=== PATIENT | female | born 1970 | race Caucasian/White ===

== ENCOUNTER 2022-02-10 18:07 | Emergency (ER) | payer OTHER, SELFPAY ==
--- NOTE | ~2022-02-10 | XR_ITS ---
EXAMINATION: XR FOOT, LEFT CLINICAL INFORMATION: Pain COMPARISON: None TECHNIQUE: AP, lateral, and oblique views of the left foot. FINDINGS: There is evidence of early degeneration first MTP joint. Possible early bunion formation. There is a sliver-like bony density emanating off the proximal phalanx of the first digit lateral aspect level of the MCP joint. This may be degenerative. Avulsion injury could not be excluded. There is significant spurring at the insertion of plantar aponeuroses and [id number] spurring at the insertion of the Achilles on the calcaneus. There is no acute bony erosion. No soft tissue air is seen. Probable dystrophic soft tissue calcification posterior lower leg XR/XR foot LT min 3V IMPRESSION: Areas of degenerative change. As described sliver-like bony density in the region of the first MTP joint could be degenerative. Small avulsion injury cannot be excluded in the appropriate clinical setting. Spurring in the posterior calcaneus
[2022-02-10 18:27] VITALS: BP 161/89; PULSE 97; RESP 20; TEMP 36.7; O2SAT 98; BMI 30.5
--- NOTE | 2022-02-10 20:38 | ED_ITS ---
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 Denies trauma/injury, fall or twisting. Denies numbness, tingling, weakness, fever MD complaint: foot injury Onset (ago): hour(s) Related Data Previous Rx's Medication Instructions Recorded cephalexin 500 mg capsule 500 mg PO QID 7 Days #28 cap 02/10/22 ketorolac 10 mg tablet 10 mg PO TID PRN 5 Days #15 tab 02/10/22 Allergies Allergy/AdvReac Type Severity Reaction Status Date / Time acetaminophen [From VICODIN] Allergy Unknown ITCHING Unverified 06/19/20 14:48 hydrocodone [From VICODIN] Allergy Unknown ITCHING Unverified 06/19/20 14:48 oxycodone [From PERCOCET] Allergy Unknown ITCHING Unverified 06/19/20 14:48 ibuprofen AdvReac Vomiting Verified 02/10/22 18:30 Review of Systems Review of Systems: Constitutional: No Fever, No Chills ENT/Mouth: No Ear Pain, No Nasal Congestion, No Sinus Pain, No sore throat, No Rhinorrhea, No Swallowing Difficulty Cardiovascular: No Chest Pain, No SOB Respiratory: No Cough, No Sputum Gastrointestinal: No Nausea, No Vomiting, No Diarrhea, No Constipation, No Abdominal pain Genitourinary: No Dysuria, No Urinary Frequency, No Flank Pain Musculoskeletal: + joint pain, No Myalgias, + foot Swelling Skin: No Skin Lesions, No rash Neuro: No Weakness, No Numbness, No Paresthesias Yes all other systems are reviewed and are negative [facility] Past Medical History Attestation statement: The following information was validated with the patient. Social History Social History Advance Directives: No Advance Directives Information Provided: No Physical Exam Vital Signs: Vital Signs: Last Vital Signs Temp 98.0 F 02/10/22 18:27 Pulse 97 02/10/22 18:27 Resp 20 02/10/22 18:27 BP 161/89 H 02/10/22 18:27 Pulse Ox 98 02/10/22 18:27 BMI result Body Mass Index 30.5 Const: General: cooperative, healthy appearing and no acute distress Orientation/consciousness: patient oriented x3 Limitations: no limitations HEENT: Head: Yes normal to inspection and Yes atraumatic Ears: hearing grossly normal bilaterally General nose exam: Normal external nose present Face and sinus: Yes normal facial exam Eyes: General: appearance normal, both eyes and all related structures EOM: EOMs intact bilaterally Neck: Neck: Yes normal visual inspection and Yes no meningeal signs Resp: Effort & Inspection: normal respiratory effort and no respiratory distress Cardio: Rate: regular rate Peripheral pulses: dorsalis pedis present Skin: Rashes: no rashes Wounds: no wounds Neuro: General: patient oriented x3, tone normal and no meningeal signs Extrem: Other: Left foot volar aspect with mild swelling and erythema. Tender to palpation. Ankle nontender without noted deformity. ankle ROM intact. Toe ROM intact. Sensation intact to light touch. Knee nontender Course Course Course Narrative: XR foot LT min 3V IMPRESSION: Areas of degenerative change. As described sliver-like bony density in the region of the first MTP joint could be degenerative. Small avulsion injury cannot be excluded in the appropriate clinical setting. Spurring in the posterior calcaneus? >> patient placed in hard-soled shoe and also prescribed Keflex for potential infection is to follow-up with orthopedics. Discussed worrisome signs and symptoms and strict return precautions. 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 On exam vital signs stable, in ED/nontoxic-appearing, physical exam as above. Concern for sprain vs ?Fracture vs early cellulitis vs gout Plan: X-rays Medical Records Attestation: I reviewed the patient's medical records. Lab Data Attestation: I reviewed the patient's lab results. Discharge Plan Discharge Clinical Impression: Acute foot pain, Cellulitis Patient Disposition: Home, Self-Care Instructions: Cellulitis (DC), Arthralgia (ED) Additional Instructions: You have a possible avulsion fracture of your foot. Please wear hard-soled shoe into you see the immigration law specialist. In addition Keflex as an antibiotic please take as prescribed for possible infection. Ice and elevate. Toradol as an anti-inflammatory/pain medication, take with food. In addition take Tylenol. If symptoms persist or worsen return to the emergency department Prescriptions: New ketorolac 10 mg tablet 10 mg PO TID PRN (Reason: pain) 5 Days Qty: 15 0RF cephalexin 500 mg capsule 500 mg PO QID 7 Days Qty: 28 0RF Referrals: Maggie Sarmiento PA-C [Physician Senior Sourcing Manager] - 1 week
[2022-02-10] MEDS: Ketorolac Tromethamine 30 MG/ML VIAL IM (20:45)
== END 2022-02-10 21:16 | disposition home or self-care (01) ==
PROVIDERS: Emergency Provider Internal Medicine; PCP Internal Medicine
DX: L03.116 Cellulitis of left lower limb (principal); R60.0 Localized edema; M79.672 Pain in left foot; Z79.899 Other long term (current) drug therapy
CPT/HCPCS: 73630; 96372; 99282; 99284; J1885

== ENCOUNTER → 2022-02-22 14:18 | Outpatient (BNVA) | payer OTHER, SELFPAY | PROVIDERS: PCP Internal Medicine; Visit Provider Physician Assistant | DX: M79.672 Pain in left foot (principal) | CPT/HCPCS: 99202 ==

== ENCOUNTER 2022-07-10 09:48 | Outpatient (REF) | payer OTHER, SELFPAY ==
[2022-07-10 11:15] LABS: Hematocrit 46.9 % (37.0-47.0); Hemoglobin 15.5 g/dl (12.0-16.0); Mean Corpuscular Hemoglobin 30.2 pg (27.0-33.0); Mean Corpuscular Volume 91.2 fL (80.0-98.0); Mean Platelet Volume 10.3 fL (9.4-12.3); Platelet Count 224 X10*3/uL (160-400); Red Blood Count 5.14 X10*6/uL (4.20-5.50); Red Cell Distribution Width 12.8 % (11.0-16.0); White Blood Count 8.7 X10*3/uL (4.8-10.8)
[2022-07-10 14:03] LABS: Alanine Aminotransferase 16 U/L (0-31); Albumin Level 4.5 g/dL (3.5-5.0); Alkaline Phosphatase 69 U/L (39-117); Anion Gap 16 (12-20); Aspartate Amino Transferase 14 U/L (5-31); Bilirubin Direct < 0.2 mg/dL (0.0-0.5); Bilirubin Total 0.3 mg/dL (0.0-1.0); Blood Urea Nitrogen 12 mg/dL (9-16); Calcium 9.3 mg/dL (8.4-10.2); Carbon Dioxide 22 mmol/L (22-29); Chloride 108 mmol/L (96-108); Cholesterol 232 mg/dL; Estimated Glomerular Filt Rate > 60; Glucose Random 101 mg/dL (60-115); HDL Cholesterol 50 mg/dL; LDL Cholesterol Calculated 156 mg/dl; Potassium 4.9 mmol/L (3.3-5.1); Sodium 141 mmol/L (135-145); Total Protein 6.9 g/dL (6.5-8.0); Triglycerides 133 mg/dL
[2022-07-10 14:23] LABS: Thyroid Stimulating Hormone 0.75 uIU/mL (0.32-4.0)
== END 2022-07-10 09:49 | disposition home or self-care (01) ==
LOC: HO.HMGCLDS 09:48
PROVIDERS: PCP Internal Medicine; Visit Provider Internal Medicine
DX: I10 Essential (primary) hypertension (principal)
CPT/HCPCS: 36415; 80048; 80061; 80076; 84443; 85027

== ENCOUNTER 2023-04-26 08:07 | Outpatient (REF) | payer OTHER, SELFPAY ==
--- NOTE | ~2023-04-26 | MM_ITS ---
EXAMINATION: MM SCREENING DIGITAL BREAST TOMOSYNTHESIS, BILATERAL CLINICAL INFORMATION: Screening. Asymptomatic. Patient has a history of previous bilateral breast reduction. The lifetime risk of breast cancer based on the Tyrer-Cuzick Model is 7%. COMPARISON: Mammography: This study is compared with prior exams dating back to 2016. TECHNIQUE: Digital breast tomosynthesis is performed in both the craniocaudal and mediolateral oblique views along with computer-aided detection (CAD). Synthesized 2D images are generated from the tomosynthesis. FINDINGS: The breasts are almost entirely fatty (ACR BI-RADS breast composition Category a). There are no significant masses, abnormal calcifications, or other abnormalities. There are post reduction changes in each breast with areas of fat necrosis manifested as macrocalcification more pronounced in the left breast. These are benign findings. MM/MM tomosynthesis screening BI IMPRESSION: No mammographic evidence of malignancy. ASSESSMENT: BI-RADS BI-RADS 2 - Benign Findings RECOMMENDATION: Routine annual mammography screening. 1 year F/U This examination should not preclude the clinical evaluation of a suspicious palpable abnormality. This patient's information was entered into a reminder system with a target due date for their next mammogram.
== END 2023-04-26 08:08 | disposition home or self-care (01) ==
LOC: HO.MAMMO 08:07
PROVIDERS: PCP Internal Medicine; Visit Provider Internal Medicine
DX: Z12.31 Encounter for screening mammogram for malignant neoplasm of breast (principal)
CPT/HCPCS: 77063; 77067

== ENCOUNTER → 2023-04-26 08:15 | Outpatient (BNV) | payer OTHER, SELFPAY | PROVIDERS: PCP Internal Medicine; Visit Provider Radiology Diagnostic Radiology | DX: Z12.31 Encounter for screening mammogram for malignant neoplasm of breast (principal) | CPT/HCPCS: 77063; 77067 ==

== ENCOUNTER 2023-04-27 08:04 | Outpatient (AMB) | payer OTHER, MEDICAID, SELFPAY ==
[2023-04-27 08:13] VITALS: BMI 30.7
--- NOTE | 2023-04-27 08:13 | MHC.OFFVIS ---
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 States she noticed a small lump about 2-3 months ago. States at times its really red and tender and pain increases if she hits it on a surface. States she has intermittent numbness and tingling, increases at night time. She wears a brace as needed to sleep. Hx of O.A. and lyme disease. 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 She complains of a mass on the dorsal aspect of her index finger D IP joint. She says this has been present for ~2-3 months and is often red, swollen, and painful if bumped against an object. She has a Hx of hand OA an Lyme disease, as well as Bipolar disorder. 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 Review of Systems Const All systems reviewed & are unremarkable except as noted in HPI and below Physical Exam Vital Signs: BMI result Body Mass Index 30.7 Const General: cooperative, healthy appearing and no acute distress Orientation/consciousness: patient oriented x3 HEENT Head: Yes normocephalic and Yes atraumatic Eyes EOM: EOMs intact bilaterally Resp Effort & Inspection: normal respiratory effort and able to speak in complete sentences Cardio Jugular venous distension: no JVD Skin General skin exam: turgor normal Rashes: no rashes Neuro General: patient oriented x3 Extrem Other: Evaluation of Right Upper Extremity: The patient is alert, oriented, and in no acute distress Neuro: Median, Ulnar, Radial nerves motor and sensory intact and sensation grossly intact Vascular: Cap refill brisk ROM: She can make a fist and extend all her digits. Skin: No lacerations or abrasions. General: No Ecchymosis. No Erythema or evidence of infection. She has a mass that is approximately 4 mm in diameter over the dorsal aspect of her left index finger D IP joint. This is most consistent with a mucous cyst. She also has some early generalized arthritic changes in her PIP and D IP joints. Psych Appearance: grossly normal Affect: normal affect Attitude: cooperative Assessment & Plan Assessment & Plan (1) Digital mucous cyst of finger of left hand: Code(s): M67.442 - Ganglion, left hand (2) Bilateral hand numbness: Code(s): R20.0 - Anesthesia of skin Plan Assessment & Plan: 1. Left index finger mucous cyst Measuring ~ 4 mm in diameter, on the dorsal aspect of the DIP joint I educated her about this condition I discussed operative and non-operative treatment options The patient would like to proceed with surgery The risks and benefits of operative treatment were discussed with the patient and the patient wishes to proceed with surgery. These risks include, but are not limited to risk of damage to blood vessels, nerves, tendons, infection, recurrence, incomplete relief of preoperative symptoms, persistent pain, possible need for further surgery and the risks associated with regional blocks and anesthesia. The plan is to take the patient to the operating room sometime in the next few weeks for the following procedures: 1. Left index finger mucous cyst excision, under local All of the preoperative paperwork including the consent was filled out today. All the patient's questions were answered. The patient understands that they will be contacted by our team leader surgery soon to schedule this procedure She denies Diabetes, blood thinners, asthma, heart, lung, kidney issues 2. Occasional numbness in her hands She thinks this is occurring a couple times a week I educated her about carpal and cubital tunnel syndrome She is going to be mindful about the frequency of her numbness, and knows to contact us if her symptoms increase Scribed for Maliha Bella MD by Tevin Otoole, medical service technician, on 04/27/23 at 8:30 AM, EST. Coding Level of Care Code New Pt Level 4 (28033) Diagnoses Digital mucous cyst of finger of left hand M67.442 Bilateral hand numbness R20.0
== END 2023-04-27 08:37 | disposition home or self-care (01) ==
PROVIDERS: PCP Nurse Practitioner Family; Visit Provider Orthopaedic Surgery
DX: M67.442 Ganglion, left hand (principal); R22.32 Localized swelling, mass and lump, left upper limb; R20.0 Anesthesia of skin
CPT/HCPCS: 99214

== ENCOUNTER → 2023-04-27 08:04 | Outpatient (BNVA) | payer OTHER, SELFPAY | PROVIDERS: PCP Nurse Practitioner Family; Visit Provider Orthopaedic Surgery ==

== ENCOUNTER 2023-05-09 09:42 | Day surgery (SDC) | payer OTHER, SELFPAY ==
[2023-05-09 10:20] VITALS: BMI 30.3
--- NOTE | 2023-05-09 10:31 | MHC.SHP ---
Pre-Procedural Eval Section A Date of Service: 05/09/23 The patient is an INPATIENT: No Changes since office visit: No Cold of Flu in the past 2 weeks, No New Medical Problems, No Changes in Medication and No Patient answered all questions The History & Physical has been completed within 30 days and I have reviewed it.: Yes Section B Chief Complaint: Ganglion, left hand Allergies: Allergies Allergy/AdvReac Type Severity Reaction Status Date / Time acetaminophen [From VICODIN] Allergy Unknown ITCHING Verified 05/09/23 10:20 hydrocodone [From VICODIN] Allergy Unknown ITCHING Verified 05/09/23 10:20 oxycodone [From PERCOCET] Allergy Unknown ITCHING Verified 05/09/23 10:20 ibuprofen AdvReac Vomiting Verified 05/09/23 10:20 Plan I have reviewed the history and physical and performed a pertinent physical examination on my patient. No changes have occurred unless specified. Time Spent With Patient Time: Total time managing care of this patient today ____ minutes.
--- NOTE | 2023-05-09 10:32 | W.PM.OPN ---
Operative Note Operative Note Date of Service: 05/09/23 Narrative: Operative Note Preop diagnosis: 1. Left index finger DIP joint osteoarthritis and mucous cyst Postop diagnosis: 1. same Procedure: 1. left index finger mucous cyst excision 2. left index finger DIP joint arthrotomy and excision of osteophyte. Surgeon: Maliha Bella MD Anesthesia: Digital block using 1% lidocaine with epinephrine Findings: mucous cyst EBL: Less than 5 mL Tourniquet time: None Specimens: None Complications: None Disposition: Brought to recovery room in stable condition Plan: Follow-up for 7-10 days for wound check and suture removal Indications: The patient is 53 years old, with left index finger D IP joint osteoarthritis and a mucous cyst that has been unresponsive to nonoperative management. The risks and benefits of operative treatment including but not limited to risk of damage to blood vessels, nerves, tendons, infection, persistent pain, persistent symptoms, recurrence or possible need for additional surgery were discussed with the patient and the patient wishes to proceed with surgery. Procedure: Once consent was obtained a digital block was performed in the preop area using a combination of 1% lidocaine with epinephrine. The patient was then brought back to the operating suite and placed on the operative table in supine position. A tourniquet was applied to the proximal aspect of the left upper extremity and the limb was prepped and draped in a standard surgical fashion. Once assured that we had a good block, an L-shaped incision was made over the dorsal aspect of the left index finger distal phalanx. The incision was made through the skin to the subcutaneous tissues using a #15 blade. Careful dissection was made down to the level of the mucous cyst and extensor mechanism using iris scissors. The mucous cyst measured approximately 4 mm in diameter and was filled with clear viscous fluid consistent with a ganglion. The stalk track down directly to the radial aspect of the D IP joint. It was dissected free from the surrounding tissues and removed from the finger. An arthrotomy was performed on the radial side of the extensor mechanism at the D IP joint. The periarticular osteophytes were excised using a rongeur. Once satisfied, the wound was copiously irrigated with normal saline and hemostasis was obtained with a brief period of local pressure. The skin edges were reapproximated with some 5.0 Prolene suture material and a sterile dressing was applied. The patient appears to have tolerated the procedure well and with no complications. All digits were well vascularized at the conclusion of the case.
[2023-05-09 12:29] VITALS: BP 128/71; PULSE 78; RESP 16; O2SAT 96
== END 2023-05-09 12:10 | disposition home or self-care (01) ==
PROVIDERS: PCP Internal Medicine; Visit Provider Orthopaedic Surgery
PROC: (CPT 26160; principal; 2023-05-09 11:30)
DX: M67.442 Ganglion, left hand (principal); M19.042 Primary osteoarthritis, left hand; R20.0 Anesthesia of skin; I10 Essential (primary) hypertension; F32.A Depression, unspecified; F41.1 Generalized anxiety disorder; Z88.8 Allergy status to other drugs, medicaments and biological substances; Z87.891 Personal history of nicotine dependence
CPT/HCPCS: 26160; 26080; J0171

== ENCOUNTER → 2023-05-09 09:42 | Outpatient (BNV) | payer OTHER, SELFPAY | PROVIDERS: PCP Internal Medicine; Visit Provider Orthopaedic Surgery | DX: M71.342 Other bursal cyst, left hand (principal); M25.742 Osteophyte, left hand | CPT/HCPCS: 26160; 26210 ==

== ENCOUNTER 2023-05-24 11:47 | Outpatient (AMB) | payer OTHER, SELFPAY ==
--- NOTE | 2023-05-24 11:52 | A.OFFPC_ITS ---
Vital Signs 05/24/23 11:58 Height 5 ft 7.5 in Weight 197 lb 4 oz BMI 30.4 BP 146/90 H Blood Pressure Location Lt brachial Position Sitting Pulse 94 Pulse Source Pulse Oximeter Pulse Oximetry (%) 95 Oxygen Delivery Method Room Air Intake Visit Reasons: EST care trans from [place] Allergies acetaminophen [From VICODIN] Allergy (Unknown, Verified 05/24/23 11:58) ITCHING hydrocodone [From VICODIN] Allergy (Unknown, Verified 05/24/23 11:58) ITCHING oxycodone [From PERCOCET] Allergy (Unknown, Verified 05/24/23 11:58) ITCHING ibuprofen Adverse Reaction (Verified 05/24/23 11:58) Vomiting Medication List - Last Reconciled 05/24/23 by Fernanda Huerta MD fluoxetine 20 mg PO BID 90 days oxycodone-acetaminophen 5-325 mg 1 tab PO Q6H PRN trazodone 50 mg PO BEDTIME 90 days Tobacco use date assessed: 05/24/23 Dental Screening Dental Screen Date: 05/24/23 Did you have a dental visit in the last 12 months?: No Did you have a dental problem in the last 6 months where you did not have access to dental care?: No Was dental information given to patient?: No HPI EST care trans from [place] HPI Details Patient is 53-year-old female came in today for establish care visit Patient says that years ago she was diagnosed with Lyme disease through neurology So when she is nervous she start having tremor of her head. She was treated for that. Patient have a history of bipolar disorder currently seeing no psychiatrist but she is in need of psychiatrist as well as therapist I have sent a message to our behavior health coordinator for that. She is currently taking fluoxetine 20 mg b.i.d. and trazodone 50 mg at night. Patient is having hallucinations she tells me that she sees things which are not there and noises cause severe panic like state. She also says that trazodone does not help she is not able to sleep at night. I am switching her to Seroquel 25 mg patient may take 1 or 2 at night. She will be having labs fasting and will return in 3 weeks for follow-up. Mammogram was April of this year Patient have a history of hysterectomy secondary to heavy bleeding in 2012 She does not want to have colonoscopy. BMI is elevated at 30.4 patient is obese we will talk about it further in her upcoming appointments. 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 1. Little interest or pleasure in doing things: nearly every day 2. Feeling down, depressed, or hopeless: nearly every day 3. Trouble falling or staying asleep, or sleeping too much: nearly every day 4. Feeling tired or having little energy: nearly every day 5. Poor appetite or overeating: more than half the days 6. Feeling bad about yourself - or that you are a failure or have let yourself or your family down: more than half the days 7. Trouble concentrating on things, such as reading the newspaper or watching television: nearly every day 8. Moving or speaking so slowly that other people could have noticed. Or the opposite - being so fidgety or restless that you have been moving around a lot more than usual: nearly every day 9. Thoughts that you would be better off or of hurting yourself in some way: more than half the days Total score: 24 Depression Screening Interpretation: Positive 30756 - PHQ-9 Billing: Yes Source: Developed by Drs. Peter Alvarado, Dilma Victoria, Jerrell Padilla and colleagues, with an educational stephanie from [employer]. Thrive Questionnaire Date Thrive assessed: 05/24/23 I am a: Patient What is your living situation today?: I have a steady place to live Within the past 12 months, did the food you bought not last and you didn't have the money to get more?: Sometimes True Within the past 12 months, did you worry whether your food would run out before you got money to buy more?: Sometimes True Do you have trouble paying for medicines?: No Do you have trouble getting transportation to medical appointments?: No Do you have trouble paying your heating and electricity bill?: No Do you have trouble taking care of your child, family member or friend?: No Do you have trouble with day-to-day activities such as bathing, preparing meals, shopping, managing finances, etc.?: No Are you currently unemployed and looking for a job?: No Are you interested in more education?: No AUDIT C Alcohol Use Questionnaire (AUDIT-C) 1. How often do you have a drink containing alcohol?: Never 3. How often do you have six or more drinks on one occasion?: Never Total Score: 0 Score Reviewed/Action Taken: Yes JAVY-7 AMB Questionnaire JAVY-7 Date JAVY - 7 assessed: 05/24/23 Feeling nervous, anxious, or on edge: 3 = Nearly every day Not being able to stop or control worryin = Nearly every day Worrying too much about different things: 3 = Nearly every day Trouble relaxin = Nearly every day Being so restless that it is hard to sit still: 3 = Nearly every day Becoming easily annoyed or irritable: 3 = Nearly every day Feeling afraid as if something awful might happen: 3 = Nearly every day Total JAVY-7 score (0-4 normal; 5-9 mild; 10-14 moderate; 15-21 severe): 21 Source: Developed by Drs. Peter Alvarado, Dilma Victoria, Jerrell Padilla and colleagues, with an educational stephanie from [employer]. Review of Systems Const Denies chills, Denies fever(s) and Denies headache(s) Eyes Denies blurry vision ENT Denies headache(s), Denies nasal discharge, Denies nasal obstruction, Denies odynophagia and Denies sinus pain Card Denies chest pain at rest and Denies chest pain with activity Resp Denies cough and Denies hemoptysis GI Denies diarrhea, Denies odynophagia, Denies vomiting and Denies hematemesis Reports as per HPI Musc Denies abnormal gait Skin/Breast Reports as per HPI Neuro Denies Abnormal speech present, Denies abnormal gait, Denies headache(s) and Denies Sensory deficit (Neuro) Endo Reports as per HPI Jose David/Lymph Reports as per HPI Aller/Immun Reports as per HPI Physical exam (Primary Care) Vital Signs: Last Vital Signs Pulse 94 08/22/23 11:58 BP 146/90 H 05/24/23 11:58 Pulse Ox 95 05/24/23 11:58 Oxygen Delivery Method Room Air 05/24/23 11:58 BMI result Body Mass Index 30.4 Tobacco/Smoking Status: Tobacco use Status Tobacco use date assessed 05/24/23 05/24/23 11:59 Patient Tobacco Use Status Current someday Tobacco 05/24/23 11:59 e-Cigarette/Vaping Use Never Used 05/24/23 11:53 Depression Screening Interpretation: Positive Thrive Assessment: Date of Thrive Assessment Date Thrive assessed 05/24/23 05/24/23 12:35 Const General: cooperative, comfortable and no acute distress Orientation/consciousness: patient oriented x3 HENMT Head: Yes normocephalic and Yes atraumatic Eyes General: appearance normal, both eyes and all related structures Pupils: Equal, round and reactive pupils present EOM: EOMs intact bilaterally Neck Neck: Yes supple and No lymphadenopathy Thyroid: Thyroid normal Lymphatic: no lymphadenopathy noted Chest Breast/axilla palpation: normal palpation of the breasts Resp Effort & Inspection: normal respiratory effort and able to speak in complete sentences Auscultation: clear to auscultation bilaterally Cardio Heart sounds: S1 normal heart sound present and S2 normal heart sound present GI Palpation (GI): Soft to palpation and nontender Auscultation: normal bowel sounds General: Yes no CVA tenderness Back/Spine/Pelvis Back: no CVA tenderness Skin General skin exam: elasticity normal and turgor normal Neuro General: patient oriented x3 and gait normal Cranial nerves: Yes Equal, round and reactive pupils present Speech: No Abnormal speech present Sensory Exam: No Sensory deficit (Neuro) Coordination: tandem gait normal and Romberg test negative Extrem General: Yes normal exam except as noted and No edema Assessment and Plan Assessment & Plan (1) Establishing care with new doctor, encounter for: Code(s): Z76.89 - Persons encountering health services in other specified circumstances (2) Paranoia: Code(s): F22 - Delusional disorders (3) Visual hallucinations: Code(s): R44.1 - Visual hallucinations (4) Panic anxiety syndrome: Code(s): F41.0 - Panic disorder [episodic paroxysmal anxiety] (5) Severe major depression: Code(s): F32.2 - Major depressive disorder, single episode, severe without psychotic features (6) History of Lyme disease: Code(s): Z86.19 - Personal history of other infectious and parasitic diseases (7) Colonoscopy refused: Code(s): Z53.20 - Procedure and treatment not carried out because of patient's decision for unspecified reasons (8) Obesity due to excess calories: Code(s): E66.09 - Other obesity due to excess calories (9) Elevated blood pressure reading: Code(s): R03.0 - Elevated blood-pressure reading, without diagnosis of hypertension (10) History of bilateral breast reduction surgery: Code(s): Z98.890 - Other specified postprocedural states Plan Patient is 53-year-old female came in today for establish care visit Patient says that years ago she was diagnosed with Lyme disease through neurology So when she is nervous she start having tremor of her head. She was treated for that. Patient have a history of bipolar disorder currently seeing no psychiatrist but she is in need of psychiatrist as well as therapist I have sent a message to our behavior health coordinator for that. She is currently taking fluoxetine 20 mg b.i.d. and trazodone 50 mg at night. Patient is having hallucinations she tells me that she sees things which are not there and noises cause severe panic like state. She also says that trazodone does not help she is not able to sleep at night. I am switching her to Seroquel 25 mg patient may take 1 or 2 at night. She will be having labs fasting and will return in 3 weeks for follow-up. Mammogram was April of this year Patient have a history of hysterectomy secondary to heavy bleeding in 2012 She does not want to have colonoscopy. BMI is elevated at 30.4 patient is obese we will talk about it further in her upcoming appointments. Orders: Orders Complete Blood Count Auto Diff Today E66.09 - Other obesity due to excess calories, F22 - Delusional disorders, F32.2 - Major depressive disorder, single episode, severe without psychotic features, F41.0 - Panic disorder [episodic paroxysmal anxiety], R03.0 - Elevated blood-pressure reading, without diagnosis of hypertension, R44.1 - Visual hallucinations, Z76.89 - Persons encountering health services in other specified circumstances, Z86.19 - Personal history of other infectious and parasitic diseases Comprehensive Riddle. Panel Fast Today E66.09 - Other obesity due to excess calories, F22 - Delusional disorders, F32.2 - Major depressive disorder, single episode, severe without psychotic features, F41.0 - Panic disorder [episodic paroxysmal anxiety], R03.0 - Elevated blood-pressure reading, without diagnosis of hypertension, R44.1 - Visual hallucinations, Z76.89 - Persons encountering health services in other specified circumstances, Z86.19 - Personal history of other infectious and parasitic diseases Lipid Panel Today E66.09 - Other obesity due to excess calories, F22 - Delusional disorders, F32.2 - Major depressive disorder, single episode, severe without psychotic features, F41.0 - Panic disorder [episodic paroxysmal anxiety], R03.0 - Elevated blood-pressure reading, without diagnosis of hypertension, R44.1 - Visual hallucinations, Z76.89 - Persons encountering health services in other specified circumstances, Z86.19 - Personal history of o ther infectious and parasitic diseases TSH reflex Free T4 Today E66.09 - Other obesity due to excess calories, F22 - Delusional disorders, F32.2 - Major depressive disorder, single episode, severe without psychotic features, F41.0 - Panic disorder [episodic paroxysmal anxiety], R03.0 - Elevated blood-pressure reading, without diagnosis of hypertension, R44.1 - Visual hallucinations, Z76.89 - Persons encountering health services in other specified circumstances, Z86.19 - Personal history of other infectious and parasitic diseases Vitamin B12 Today E66.09 - Other obesity due to excess calories, F22 - Delusional disorders, F32.2 - Major depressive disorder, single episode, severe without psychotic features, F41.0 - Panic disorder [episodic paroxysmal anxiety], R03.0 - Elevated blood-pressure reading, without diagnosis of hypertension, R44.1 - Visual hallucinations, Z76.89 - Persons encountering health services in other specified circumstances, Z86.19 - Personal history of other infectious and parasitic diseases Vitamin D 25-OH (D2 and D3) Today E66.09 - Other obesity due to excess calories, F22 - Delusional disorders, F32.2 - Major depressive disorder, single episode, severe without psychotic features, F41.0 - Panic disorder [episodic paroxysmal anxiety], R03.0 - Elevated blood-pressure reading, without diagnosis of hypertension, R44.1 - Visual hallucinations, Z76.89 - Persons encountering health services in other specified circumstances, Z86.19 - Personal history of other infectious and parasitic diseases Medications: New quetiapine (Seroquel) 25 mg PO BEDTIME 30 tabs 0RF clotrimazole-betamethasone 1-0.05 % 1 appl topical ONCE 45 grams 0RF 30 days Discontinued trazodone Discontinued Reason: Doctor's Order 50 mg PO BEDTIME 90 days 90 tabs 2RF Coding Level of Care Code New Pt Level 5 (12647) Diagnoses Establishing care with new doctor, encounter for Z76.89 Paranoia F22 Visual hallucinations R44.1 Panic anxiety syndrome F41.0 Severe major depression F32.2 History of Lyme disease Z86.19 Colonoscopy refused Z53.20 Obesity due to excess calories E66.09 Elevated blood pressure reading R03.0 History of bilateral breast reduction surgery Z98.890 Comment 60 min spent, 35 with the patient, 10 reviewing chart and charting,15 coordination of care
[2023-05-24 11:58] VITALS: BP 146/90; PULSE 94; O2SAT 95; BMI 30.4
== END 2023-05-24 12:37 | disposition home or self-care (01) ==
PROVIDERS: PCP Internal Medicine; Visit Provider Internal Medicine
DX: R03.0 Elevated blood-pressure reading, without diagnosis of hypertension (principal); F22 Delusional disorders; F32.2 Major depressive disorder, single episode, severe without psychotic features; Z86.19 Personal history of other infectious and parasitic diseases; Z98.890 Other specified postprocedural states; Z76.89 Persons encountering health services in other specified circumstances; F41.0 Panic disorder [episodic paroxysmal anxiety]; Z53.20 Procedure and treatment not carried out because of patient's decision for unspecified reasons; E66.09 Other obesity due to excess calories
CPT/HCPCS: 99205

== ENCOUNTER 2023-05-25 10:43 | Outpatient (REF) | payer OTHER, SELFPAY ==
[2023-05-25 13:31] LABS: MANUAL DIFF FLAG NO
[2023-05-25 13:38] LABS: Basophils Percent Auto 0.4 % (0-2); Eosinophils Absolute Auto 0.1 X10*3/uL (0.0-0.4); Eosinophils Percent Auto 1.5 % (0-4); Hematocrit 48.2 % (37.0-47.0); Hemoglobin 15.8 g/dl (12.0-16.0); Imm Gran Abs Auto 0.04 X10*3/uL (0.00-0.03); Imm Gran Pct Auto 0.4 % (0.0-0.4); Lymphocytes Absolute Auto 2.7 X10*3/uL (1.2-4.9); Lymphocytes Percent Auto 28.1 % (20-40); Mean Corpuscular HGB Conc 32.8 g/dl (31.0-35.0); Mean Corpuscular Hemoglobin 30.3 pg (27.0-33.0); Mean Corpuscular Volume 92.3 fL (80.0-98.0); Mean Platelet Volume 10.2 fL (9.4-12.3); Monocytes Absolute Auto 0.6 X10*3/uL (0.1-1.2); Monocytes Percent Auto 5.8 % (2-11); Neutrophils Absolute Auto 6.1 x10*3/uL (2.0-8.3); Neutrophils Percent Auto 63.8 % (45-73); Platelet Count 270 X10*3/uL (160-400); Red Blood Count 5.22 X10*6/uL (4.20-5.50); Red Cell Distribution Width 12.7 % (11.0-16.0); White Blood Count 9.6 X10*3/uL (4.8-10.8)
[2023-05-25 14:09] LABS: Alanine Aminotransferase 15 U/L (0-31); Albumin Level 4.5 g/dL (3.5-5.0); Alkaline Phosphatase 61 U/L (39-117); Anion Gap 14 (12-20); Aspartate Amino Transferase 13 U/L (5-31); Bilirubin Total 0.5 mg/dL (0.0-1.0); Blood Urea Nitrogen 12 mg/dL (9-16); Carbon Dioxide 22 mmol/L (22-29); Chloride 109 mmol/L (96-108); Cholesterol 243 mg/dL (<200); Estimated Glomerular Filt Rate > 60; Glucose Fasting 109 mg/dL (60-99); HDL Cholesterol 43 mg/dL (>40); LDL Cholesterol Calculated 158 mg/dL (<100); Potassium 4.2 mmol/L (3.3-5.1); Sodium 141 mmol/L (135-145); Total Protein 7.5 g/dL (6.5-8.0); Triglycerides 213 mg/dL (<150)
[2023-05-25 14:22] LABS: Vitamin B12 597 pg/mL (200-900)
[2023-05-25 14:25] LABS: TSH reflex Free T4 0.97 uIU/mL (0.32-4.0)
[2023-05-31 06:59] LABS: Vitamin D 25-OH, D2 <4 ng/mL; Vitamin D 25-OH, D3 24 ng/mL; Vitamin D 25-OH, Total 24 ng/mL (30-100)
== END 2023-05-25 10:44 | disposition home or self-care (01) ==
LOC: HO.HMGCLDS 10:43
PROVIDERS: PCP Internal Medicine; Visit Provider Internal Medicine
DX: R03.0 Elevated blood-pressure reading, without diagnosis of hypertension (principal); R44.1 Visual hallucinations; F41.0 Panic disorder [episodic paroxysmal anxiety]; F32.2 Major depressive disorder, single episode, severe without psychotic features; E66.09 Other obesity due to excess calories; M79.641 Pain in right hand; Z48.817 Encounter for surgical aftercare following surgery on the skin and subcutaneous tissue; Z87.2 Personal history of diseases of the skin and subcutaneous tissue; Z76.89 Persons encountering health services in other specified circumstances; Z86.19 Personal history of other infectious and parasitic diseases
CPT/HCPCS: 36415; 80053; 80061; 82306; 82607; 84443; 85025

== ENCOUNTER 2023-05-25 11:55 | Outpatient (AMB) | payer OTHER, MEDICAID, SELFPAY ==
--- NOTE | 2023-05-25 12:06 | MHC.OFFVIS ---
Intake Vital Signs 05/25/23 12:08 Height 5 ft 7 in Weight 197 lb BMI 30.9 Handedness Right Intake Visit Reasons: PO LT IF M.cyst exc 05/09/23AR Intake Note: Rosie is a 53 year old right hand dominant female who presents today for a post operative visit s/p LT IF M.cyst exc 05/09/23AR. Patient reports still having pain and it wakes her up at night. Denies numbness and tingling. Allergies acetaminophen [From VICODIN] Allergy (Unknown, Verified 05/25/23 12:08) ITCHING hydrocodone [From VICODIN] Allergy (Unknown, Verified 05/25/23 12:08) ITCHING oxycodone [From PERCOCET] Allergy (Unknown, Verified 05/25/23 12:08) ITCHING ibuprofen Adverse Reaction (Verified 05/25/23 12:08) Vomiting HPI PO LT IF M.cyst exc 05/09/23AR HPI Details 53-year-old right hand dominant female who presents in the office today 2 weeks status post left index finger mucous cyst excision and DIP joint arthrotomy and excision of osteophyte, which was performed on 05/09/[address] Bella. The patient reports having pain that wakes her up at night. She denies numbness or tingling. 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 Cognitive needs: No Hearing needs: No Vision needs: Yes Review of Systems Const All systems reviewed & are unremarkable except as noted in HPI and below Physical Exam Vital Signs: BMI result Body Mass Index 30.9 Const General: cooperative, healthy appearing and no acute distress Resp Effort & Inspection: normal respiratory effort and able to speak in complete sentences Cardio Rate: regular rate Peripheral pulses: Peripheral pulses 2+ throughout GI Palpation (GI): Soft to palpation Skin Lesions: no lesions Rashes: no rashes Extrem Other: Left index finger: Dorsal sided incision site over the DIP is clean, dry, and intact. Sutures intact. Able to flex and extend at the DIP, PIP, and CMC. Slight stiffness at the DIP. Sensation intact. Capillary refill is brisk. Assessment & Plan Assessment & Plan (1) Digital mucous cyst of finger of left hand: Comment: Left index finger mucous cyst excision and DIP joint arthrotomy and excision of osteophyte 05/09/2023 AR Code(s): M67.442 - Ganglion, left hand Plan Ms. Hoffmann is a 53-year-old right hand dominant female who presents in the office today 2 weeks status post left index finger mucous cyst excision and DIP joint arthrotomy and excision of osteophyte, which was performed on 05/09/[address] Bella. The patient reports having pain that wakes her up at night. She denies numbness or tingling. Sutures were removed while in the office today. Exercises were demonstrated while in the office today. She will continue to work on ROM exercises. She is in agreement with these exercises, therefore formal occupational therapy has been deferred at this time. Follow up will be PRN, or sooner if needed. Patient Instructions: Scribed for Maggie Sarmiento PA-C by Luana Mari medical instructor, on 05/25/2023 at 11:57 am, EST. Coding Level of Care Code Global (43970) Diagnoses Digital mucous cyst of finger of left hand M67.442
[2023-05-25 12:08] VITALS: BMI 30.9
== END 2023-05-25 12:22 | disposition home or self-care (01) ==
PROVIDERS: PCP Nurse Practitioner Family; Visit Provider Physician Assistant
DX: M67.442 Ganglion, left hand (principal)
CPT/HCPCS: 99024

== ENCOUNTER 2023-06-21 08:42 | Outpatient (AMB) | payer OTHER, SELFPAY ==
[2023-06-21 08:44] VITALS: BP 142/84; PULSE 86; O2SAT 95; BMI 31.3
--- NOTE | 2023-06-21 08:44 | A.OFFPC_ITS ---
Vital Signs 06/21/23 08:44 Height 5 ft 7 in Weight 200 lb 2 oz BMI 31.3 BP 142/84 H Blood Pressure Location Rt brachial Position Sitting Pulse 86 Pulse Source Pulse Oximeter Pulse Oximetry (%) 95 Oxygen Delivery Method Room Air Intake Visit Reasons: [address] Huerta Allergies acetaminophen [From VICODIN] Allergy (Unknown, Verified 06/21/23 08:44) ITCHING hydrocodone [From VICODIN] Allergy (Unknown, Verified 06/21/23 08:44) ITCHING oxycodone [From PERCOCET] Allergy (Unknown, Verified 06/21/23 08:44) ITCHING ibuprofen Adverse Reaction (Verified 06/21/23 08:44) Vomiting Medication List - Last Reconciled 06/21/23 by Fernanda Huerta MD clotrimazole-betamethasone 1-0.05 % 1 appl topical ONCE 30 days fluoxetine 20 mg PO BID 90 days quetiapine (Seroquel) 25 mg PO BEDTIME Tobacco use date assessed: 06/21/23 Dental Screening Dental Screen Date: 06/21/23 Did you have a dental visit in the last 12 months?: No Did you have a dental problem in the last 6 months where you did not have access to dental care?: No Was dental information given to patient?: Patient has dentist HPI [address] Huerta HPI Details Patient is a 53-year-old female came in today for a follow-up ap pointment Bipolar disorder: Patient is still waiting for psychiatric and therapy appointment, I have notified our behavior health coordinator Meanwhile I started her on Seroquel 25 mg she is taking 2 tablets at night , sleeping little bit better , but still waking up frequently and hearing voices I am increasing Seroquel to 75 mg at night and 25 mg in the morning. We will book another appointment in a week to update on how she is feeling. Labs shows impaired fasting sugar of 109, I would recommend for her to control her diet and lose weight which she is trying. LDL is 158 Vitamin-D is 24, I have sent supplement that she is to start taking every day Her blood pressure is still 142/84, it was 146/90 last visit She says that hypertension runs in her family. I am starting her on atenolol 25 mg once a day. 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 1. Little interest or pleasure in doing things: several days 2. Feeling down, depressed, or hopeless: several days 3. Trouble falling or staying asleep, or sleeping too much: several days 4. Feeling tired or having little energy: several days 5. Poor appetite or overeating: more than half the days 6. Feeling bad about yourself - or that you are a failure or have let yourself or your family down: more than half the days 7. Trouble concentrating on things, such as reading the newspaper or watching television: several days 8. Moving or speaking so slowly that other people could have noticed. Or the opposite - being so fidgety or restless that you have been moving around a lot more than usual: more than half the days 9. Thoughts that you would be better off or of hurting yourself in some way: not at all Total score: 11 Depression Screening Interpretation: Negative 35369 - PHQ-9 Billing: Yes Source: Developed by Drs. Peter Alvarado, Dilma Victoria, Jerrell Padilla and colleagues, with an educational stephanie from [employer]. Thrive Questionnaire Date Thrive assessed: 06/21/23 I am a: Patient What is your living situation today?: I have a steady place to live Within the past 12 months, did the food you bought not last and you didn't have the money to get more?: Never true Within the past 12 months, did you worry whether your food would run out before you got money to buy more?: Never true Do you have trouble paying for medicines?: No Do you have trouble getting transportation to medical appointments?: No Do you have trouble paying your heating and electricity bill?: Yes Do you have trouble taking care of your child, family member or friend?: No Do you have trouble with day-to-day activities such as bathing, preparing meals, shopping, managing finances, etc.?: No Are you currently unemployed and looking for a job?: Yes Are you interested in more education?: No AUDIT C Alcohol Use Questionnaire (AUDIT-C) 1. How often do you have a drink containing alcohol?: Never 3. How often do you have six or more drinks on one occasion?: Never Total Score: 0 Score Reviewed/Action Taken: Yes JAVY-7 AMB Questionnaire JAVY-7 Date JVAY - 7 assessed: 06/21/23 Feeling nervous, anxious, or on edge: 3 = Nearly every day Not being able to stop or control worryin = Nearly every day Worrying too much about different things: 3 = Nearly every day Trouble relaxin = More than half the days Being so restless that it is hard to sit still: 2 = More than half the days Becoming easily annoyed or irritable: 3 = Nearly every day Feeling afraid as if something awful might happen: 3 = Nearly every day Total JAVY-7 score (0-4 normal; 5-9 mild; 10-14 moderate; 15-21 severe): 19 Source: Developed by Drs. Peter Alvarado, Dilma Victoria, Jerrell Padilla and colleagues, with an educational stephanie from [employer]. JAVY-7 Assessment Billing JAVY-7 Assessment Tool: JAVY-7 Assessment 17346 Review of Systems Const Denies chills and Denies fever(s) ENT Denies epistaxis and Denies nasal discharge Card Denies chest pain Resp Denies chest congestion, Denies cough and Denies hemoptysis GI Denies diarrhea and Denies nausea Skin/Breast Denies rash Neuro Reports no additional complaints Psych Reports no additional complaints Endo Reports no additional complaints Physical exam (Primary Care) Vital Signs: Last Vital Signs Pulse 86 06/21/23 08:44 BP 142/84 H 06/21/23 08:44 Pulse Ox 95 06/21/23 08:44 Oxygen Delivery Method Room Air 06/21/23 08:44 BMI result Body Mass Index 31.3 Tobacco/Smoking Status: Tobacco use Status Tobacco use date assessed 06/21/23 06/21/23 08:50 Patient Tobacco Use Status Current someday Tobacco 06/21/23 08:50 e-Cigarette/Vaping Use Never Used 06/21/23 08:50 PHQ-9: PHQ-9 Score PHQ-9: Total score 11 06/21/23 09:40 Depression Screening Interpretation: Negative Thrive Assessment: Date of Thrive Assessment Date Thrive assessed 06/21/23 06/21/23 09:40 Const General: cooperative, comfortable and no acute distress Orientation/consciousness: patient oriented x3 HENMT Head: Yes normocephalic Eyes General: appearance normal, both eyes and all related structures Neck Neck: Yes supple Resp Effort & Inspection: normal respiratory effort, no cough and no stridor Cardio Rhythm: regular rhythm Heart sounds: S1 normal heart sound present and S2 normal heart sound present Skin General skin exam: turgor normal Neuro General: patient oriented x3, tone normal and moves all extremities Extrem Right lower extremity: no edema Left lower extremity: no edema Assessment and Plan Assessment & Plan (1) Bipolar disorder current episode depressed: Code(s): F31.30 - Bipolar disorder, current episode depressed, mild or moderate severity, unspecified Qualifiers: Current episode severity: moderate Qualified Code(s): F31.32 - Bipolar disorder, current episode depressed, moderate (2) Severe major depression: Code(s): F32.2 - Major depressive disorder, single episode, severe without psychotic features (3) Paranoia: Code(s): F22 - Delusional disorders (4) Panic anxiety syndrome: Code(s): F41.0 - Panic disorder [episodic paroxysmal anxiety] (5) Visual hallucinations: Code(s): R44.1 - Visual hallucinations (6) Auditory hallucinations: Code(s): R44.0 - Auditory hallucinations (7) Essential hypertension: Code(s): I10 - Essential (primary) hypertension (8) Impaired fasting blood sugar: Code(s): R73.01 - Impaired fasting glucose (9) Vitamin D deficiency: Code(s): E55.9 - Vitamin D deficiency, unspecified Plan Patient is a 53-year-old female came in today for a follow-up appointment Bipolar disorder: Patient is still waiting for psychiatric and therapy appointment, I have notified our behavior health coordinator Meanwhile I started her on Seroquel 25 mg she is taking 2 tablets at night , sleeping little bit better , but still waking up frequently and hearing voices I am increasing Seroquel to 75 mg at night and 25 mg in the morning. We will book another appointment in a week to update on how she is feeling. Labs shows impaired fasting sugar of 109, I would recommend for her to control her diet and lose weight which she is trying. LDL is 158 Vitamin-D is 24, I have sent supplement that she is to start taking every day Her blood pressure is still 142/84, it was 146/90 last visit She says that hypertension runs in her family. I am starting her on atenolol 25 mg once a day. Patient is to return in 2 months for follow-up Medications: New atenolol 25 mg PO DAILY 90 tabs 0RF Blood pressure cholecalciferol (vitamin D3) 25 mcg PO DAILY 90 caps 0RF 90 days Changed From quetiapine (Seroquel) 25 mg PO BEDTIME 30 tabs 0RF To quetiapine 1 and half tablet at night and half a tablet in the morning 60 tabs 0RF 30 days Coding Level of Care Code Est Pt Level 5 (80270) Diagnoses Bipolar affective disorder, currently depressed, moderate F31.32 Current episode severity: moderate Severe major depression F32.2 Paranoia F22 Panic anxiety syndrome F41.0 Visual hallucinations R44.1 Auditory hallucinations R44.0 Essential hypertension I10 Impaired fasting blood sugar R73.01 Vitamin D deficiency E55.9 Additional Codes JAVY-7 Assessment Billing - JAVY-7 Assessment Tool: JAVY-7 Assessment 21618 ([id number]) Time Spent (min) 45 Comment 10 minute prep, 25 with patient, 10 minute charting coordination of care
== END 2023-06-21 09:46 | disposition home or self-care (01) ==
PROVIDERS: PCP Internal Medicine; Visit Provider Internal Medicine
DX: F31.32 Bipolar disorder, current episode depressed, moderate (principal); F22 Delusional disorders; E55.9 Vitamin D deficiency, unspecified; I10 Essential (primary) hypertension; R73.01 Impaired fasting glucose; F41.0 Panic disorder [episodic paroxysmal anxiety]; R44.1 Visual hallucinations; R44.0 Auditory hallucinations
CPT/HCPCS: 99215

== ENCOUNTER 2023-06-30 08:30 | Outpatient (AMB) | payer OTHER, SELFPAY ==
--- NOTE | 2023-06-30 08:38 | A.OFFPC_ITS ---
Intake Visit Reasons: 1 Week follow up Allergies acetaminophen [From VICODIN] Allergy (Unknown, Verified 06/30/23 08:39) ITCHING hydrocodone [From VICODIN] Allergy (Unknown, Verified 06/30/23 08:39) ITCHING oxycodone [From PERCOCET] Allergy (Unknown, Verified 06/30/23 08:39) ITCHING ibuprofen Adverse Reaction (Verified 06/30/23 08:39) Vomiting Medication List - Last Reconciled 06/30/23 by Fernanda Huerta MD atenolol 25 mg PO DAILY cholecalciferol (vitamin D3) 25 mcg PO DAILY 90 days clotrimazole-betamethasone 1-0.05 % 1 appl topical ONCE 30 days fluoxetine 20 mg PO BID 90 days quetiapine 1 and half tablet at night and half a tablet in the morning 30 days Tobacco use date assessed: 06/30/23 Dental Screening Dental Screen Date: 06/30/23 Did you have a dental visit in the last 12 months?: No Did you have a dental problem in the last 6 months where you did not have access to dental care?: No Was dental information given to patient?: Patient has dentist HPI 1 Week follow up HPI Details Patient is 53-year-old female this is a telemedicine video conference follow-up Patient had major depression with hallucinations, she is currently taking Seroquel 75 mg at night and 25 mg in the morning, patient is waiting to get established with psychiatrist, she is in the process. Patient says that she is feeling better with this medication she is able to sleep at least 6 hours at night and her hallucinations are improving. She was also started on atenolol 25 mg because of hypertension patient says that medication has helped her she is not feeling as edgy as she was feeling before She will be buying blood pressure monitor and will bring it with her at her upcoming appointment in August in house. 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 How often do you have a drink containing alcohol?: Never 3. How often do you have six or more drinks on one occasion?: Never Total Score: 0 Score Reviewed/Action Taken: Yes JAVY-7 AMB Questionnaire JAVY-7 Date JAVY - 7 assessed: 06/21/23 Source: Developed by Drs. Peter Alvarado, Dilma Victoria, Jerrell Padilla and colleagues, with an educational stephanie from [employer]. Review of Systems Const Denies chills and Denies fever(s) ENT Denies epistaxis and Denies nasal discharge Card Denies chest pain Resp Denies chest congestion, Denies cough and Denies hemoptysis GI Denies diarrhea and Denies nausea Skin/Breast Denies rash Neuro Reports no additional complaints Psych Reports no additional complaints Endo Reports no additional complaints Physical exam (Primary Care) Tobacco/Smoking Status: Tobacco use Status Tobacco use date assessed 06/30/23 06/30/23 08:39 Patient Tobacco Use Status Current someday Tobacco 06/30/23 08:39 e-Cigarette/Vaping Use Never Used 06/30/23 08:39 Thrive Assessment: Date of Thrive Assessment Date Thrive assessed 06/21/23 06/30/23 08:39 Const General: cooperative, comfortable and no acute distress Orientation/consciousness: patient oriented x3 HENMT Head: Yes normocephalic Eyes General: appearance normal, both eyes and all related structures Neck Neck: Yes supple Resp Effort & Inspection: normal respiratory effort, no cough and no stridor Cardio Rhythm: regular rhythm Heart sounds: S1 normal heart sound present and S2 normal heart sound present Skin General skin exam: turgor normal Neuro General: patient oriented x3, tone normal and moves all extremities Extrem Right lower extremity: no edema Left lower extremity: no edema Telehealth Telehealth Location of provider rendering services: practice address Location of patient: address on file Patient Identification confirmed using: Name, : Yes Telehealth method: video Patient verbally consented to treatment: Yes Patient verbally consented to billing insurance company: Yes Patient informed of any privacy concerns related to visit: Yes Assessment and Plan Assessment & Plan (1) Bipolar disorder current episode depressed: Code(s): F31.30 - Bipolar disorder, current episode depressed, mild or moderate severity, unspecified Qualifiers: Current episode severity: moderate Qualified Code(s): F31.32 - Bipolar disorder, current episode depressed, moderate (2) Severe major depression: Code(s): F32.2 - Major depressive disorder, single episode, severe without psychotic features (3) Panic anxiety syndrome: Code(s): F41.0 - Panic disorder [episodic paroxysmal anxiety] (4) Visual hallucinations: Code(s): R44.1 - Visual hallucinations (5) Auditory hallucinations: Code(s): R44.0 - Auditory hallucinations (6) Essential hypertension: Code(s): I10 - Essential (primary) hypertension Plan Patient is 53-year-old female this is a telemedicine video conference follow-up Patient had major depression with hallucinations, she is currently taking Seroquel 75 mg at night and 25 mg in the morning, patient is waiting to get established with psychiatrist, she is in the process. Patient says that she is feeling better with this medication she is able to sleep at least 6 hours at night and her hallucinations are improving. She was also started on atenolol 25 mg because of hypertension patient says that medication has helped her she is not feeling as edgy as she was feeling before She will be buying blood pressure monitor and will bring it with her at her upcoming appointment in August in house. Medications: Refilled quetiapine 1 and half tablet at night and half a tablet in the morning 60 tabs 0RF 30 days atenolol 25 mg PO DAILY 90 tabs 0RF Blood pressure cholecalciferol (vitamin D3) 25 mcg PO DAILY 90 caps 0RF 90 days clotrimazole-betamethasone 1-0.05 % 1 appl topical ONCE 45 grams 1RF 30 days fluoxetine 20 mg PO BID 180 caps 2RF 90 days Coding Level of Care Code Tele Est Pt Level 4 (04305) Diagnoses Bipolar affective disorder, currently depressed, moderate F31.32 Current episode severity: moderate Severe major depression F32.2 Panic anxiety syndrome F41.0 Visual hallucinations R44.1 Auditory hallucinations R44.0 Essential hypertension I10 Time Spent (min) 23 Comment 3 prep, 14 with patient, 5 charting and meds
== END 2023-06-30 10:22 | disposition home or self-care (01) ==
LOC: HO.HMGC 08:30
PROVIDERS: PCP Internal Medicine; Visit Provider Internal Medicine
DX: F31.32 Bipolar disorder, current episode depressed, moderate (principal); F41.0 Panic disorder [episodic paroxysmal anxiety]; R44.1 Visual hallucinations; R44.0 Auditory hallucinations; I10 Essential (primary) hypertension
CPT/HCPCS: 99214

== ENCOUNTER 2023-08-23 09:54 | Outpatient (AMB) | payer OTHER, SELFPAY ==
[2023-08-23 09:58] VITALS: BP 126/88; PULSE 63; O2SAT 97; BMI 31.7
--- NOTE | 2023-08-23 09:58 | A.OFFPC_ITS ---
Vital Signs 08/23/23 09:58 Height 5 ft 7 in Weight 202 lb 6 oz BMI 31.7 BP 126/88 Blood Pressure Location Lt brachial Position Sitting Pulse 63 Pulse Source Pulse Oximeter Pulse Oximetry (%) 97 Oxygen Delivery Method Room Air Intake Visit Reasons: 2 month month follow up Allergies acetaminophen [From VICODIN] Allergy (Unknown, Verified 08/23/23 09:58) ITCHING hydrocodone [From VICODIN] Allergy (Unknown, Verified 08/23/23 09:58) ITCHING oxycodone [From PERCOCET] Allergy (Unknown, Verified 08/23/23 09:58) ITCHING ibuprofen Adverse Reaction (Verified 08/23/23 09:58) Vomiting Medication List - Last Reconciled 08/23/23 by Fernanda Huerta MD atenolol 25 mg PO DAILY cholecalciferol (vitamin D3) 25 mcg PO DAILY 90 days clotrimazole-betamethasone 1-0.05 % 1 appl topical ONCE 30 days fluoxetine 20 mg PO BID 90 days quetiapine 1 and half tablet at night and half a tablet in the morning 30 days Tobacco use date assessed: 08/23/23 Dental Screening Dental Screen Date: 08/23/23 Did you have a dental visit in the last 12 months?: No Did you have a dental problem in the last 6 months where you did not have access to dental care?: No Was dental information given to patient?: No HPI 2 month month follow up 2 HPI Details Patient is 53-year-old female this is regular follow up visit Patient is now seeing alisa Coleman , therapist once a week Patient have major depression with hallucinations, she is currently taking Seroquel 75 mg at night and 25 mg in the morning, continued to feel severely anxious And still have a hallucinations but not as bad as before Patient says that she feels is summary standing behind her which really scares her. She is still waiting to see the psychiatrist I am adding lorazepam 1 mg up to 2 times a day And lamotrigine 25 mg once a day. 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 1. Little interest or pleasure in doing things: nearly every day 2. Feeling down, depressed, or hopeless: more than half the days 3. Trouble falling or staying asleep, or sleeping too much: more than half the days 4. Feeling tired or having little energy: more than half the days 5. Poor appetite or overeating: more than half the days 6. Feeling bad about yourself - or that you are a failure or have let yourself or your family down: nearly every day 7. Trouble concentrating on things, such as reading the newspaper or watching television: nearly every day 8. Moving or speaking so slowly that other people could have noticed. Or the opposite - being so fidgety or restless that you have been moving around a lot more than usual: more than half the days 9. Thoughts that you would be better off or of hurting yourself in some way: not at all Total score: 19 Depression Screening Interpretation: Positive Depression Screening Follow-up: Existing condition and In treatment Depression Screening Done: Yes 20340 - PHQ-9 Billing: Yes Source: Developed by Drs. Peter Alvarado, Jerrell Torrez and colleagues, with an educational stephanie from [employer]. Thrive Questionnaire Date Thrive assessed: 06/21/23 AUDIT C Alcohol Use Questionnaire (AUDIT-C) 1. How often do you have a drink containing alcohol?: Never 3. How often do you have six or more drinks on one occasion?: Never Total Score: 0 Score Reviewed/Action Taken: Yes JAVY-7 AMB Questionnaire JAVY-7 Date JAVY - 7 assessed: 06/21/23 Source: Developed by Drs. Peter Alvarado, Jerrell Torrez and colleagues, with an educational stephanie from [employer]. Review of Systems Const Denies chills and Denies fever(s) ENT Denies epistaxis and Denies nasal discharge Card Denies chest pain Resp Denies chest congestion, Denies cough and Denies hemoptysis GI Denies diarrhea and Denies nausea Skin/Breast Denies rash Neuro Reports no additional complaints Psych Reports no additional complaints Endo Reports no additional complaints Physical exam (Primary Care) Vital Signs: Last Vital Signs Pulse 63 08/23/23 09:58 BP 126/88 08/23/23 09:58 Pulse Ox 97 08/23/23 09:58 Oxygen Delivery Method Room Air 08/23/23 09:58 BMI result Body Mass Index 31.7 Tobacco/Smoking Status: Tobacco use Status Tobacco use date assessed 08/23/23 08/23/23 09:59 Patient Tobacco Use Status Current someday Tobacco 08/23/23 09:59 e-Cigarette/Vaping Use Never Used 08/23/23 09:59 PHQ-9: PHQ-9 Score PHQ-9: Total score 19 08/23/23 10:30 Depression Screening Interpretation: Positive Depression Screening Follow-up: Existing condition and In treatment Thrive Assessment: Date of Thrive Assessment Date Thrive assessed 06/21/23 08/23/23 09:59 Const General: cooperative, comfortable and no acute distress Orientation/consciousness: patient oriented x3 HENMT Head: Yes normocephalic Eyes General: appearance normal, both eyes and all related structures Neck Neck: Yes supple Resp Effort & Inspection: normal respiratory effort, no cough and no stridor Cardio Rhythm: regular rhythm Heart sounds: S1 normal heart sound present and S2 normal heart sound present Skin General skin exam: turgor normal Neuro General: patient oriented x3, tone normal and moves all extremities Extrem Right lower extremity: no edema Left lower extremity: no edema Assessment and Plan Assessment & Plan (1) Bipolar disorder current episode depressed: Code(s): F31.30 - Bipolar disorder, current episode depressed, mild or moderate severity, unspecified Qualifiers: Current episode severity: moderate Qualified Code(s): F31.32 - Bipolar disorder, current episode depressed, moderate (2) Severe major depression: Code(s): F32.2 - Major depressive disorder, single episode, severe without psychotic features (3) Panic anxiety syndrome: Code(s): F41.0 - Panic disorder [episodic paroxysmal anxiety] (4) Visual hallucinations: Code(s): R44.1 - Visual hallucinations (5) Auditory hallucinations: Code(s): R44.0 - Auditory hallucinations (6) Essential hypertension: Code(s): I10 - Essential (primary) hypertension (7) Impaired fasting blood sugar: Code(s): R73.01 - Impaired fasting glucose (8) Vitamin D deficiency: Code(s): E55.9 - Vitamin D deficiency, unspecified (9) Lipid disorder: Code(s): E78.9 - Disorder of lipoprotein metabolism, unspecified (10) PTSD (post-traumatic stress disorder): Code(s): F43.10 - Post-traumatic stress disorder, unspecified Plan Patient is 53-year-old female this is regular follow up visit Patient is now seeing alisa Coleman , therapist once a week Patient have major depression with hallucinations, she is currently taking Seroquel 75 mg at night and 25 mg in the morning, continued to feel severely anxious And still have a hallucinations but not as bad as before Patient says that she feels is summary standing behind her which really scares her. She is still waiting to see the psychiatrist She also a diagnosis of PTSD I am adding lorazepam 1 mg up to 2 times a day And lamotrigine 25 mg once a day. Blood pressure is stable with atenolol 25 mg patient is tolerating medication We will book a telehealth appointment in 3 weeks An in-house in 3 month labs to be done before visit in 3 patient have impaired fasting sugar and lipid disorder as well that need to be monitored Orders: Orders LDL Cholesterol Direct Today E55.9 - Vitamin D deficiency, unspecified, E78.9 - Disorder of lipoprotein metabolism, unspecified, F31.30 - Bipolar disorder, current episode depressed, mild or moderate severity, unspecified, F32.2 - Major depressive disorder, single episode, severe without psychotic features, F41.0 - Panic disorder [episodic paroxysmal anxiety], F43.10 - Post-traumatic stress disorder, unspecified, I10 - Essential (primary) hypertension, R44.0 - Auditory hallucinations, R44.1 - Visual hallucinations, R73.01 - Impaired fasting glucose Hemoglobin A1c Today E55.9 - Vitamin D deficiency, unspecified, E78.9 - Disorder of lipoprotein metabolism, unspecified, F31.30 - Bipolar disorder, current episode depressed, mild or moderate severity, unspecified, F32.2 - Major depressive disorder, single episode, severe without psychotic features, F41.0 - Panic disorder [episodic paroxysmal anxiety], F43.10 - Post-traumatic stress disorder, unspecified, I10 - Essential (primary) hypertension, R44.0 - Auditory hallucinations, R44.1 - Visual hallucinations, R73.01 - Impaired fasting glucose Complete Blood Count Auto Diff Today E55.9 - Vitamin D deficiency, unspecified, E78.9 - Disorder of lipoprotein metabolism, unspecified, F31.30 - Bipolar disorder, current episode depressed, mild or moderate severity, unspecified, F32.2 - Major depressive disorder, single episode, severe without psychotic features, F41.0 - Panic disorder [episodic paroxysmal anxiety], F43.10 - Post- traumatic stress disorder, unspecified, I10 - Essential (primary) hypertension, R44.0 - Auditory hallucinations, R44.1 - Visual hallucinations, R73.01 - Impaired fasting glucose Comprehensive Met. Panel Today E55.9 - Vitamin D deficiency, unspecified, E78.9 - Disorder of lipoprotein metabolism, unspecified, F31.30 - Bipolar disorder, current episode depressed, mild or moderate severity, unspecified, F32.2 - Major depressive disorder, single episode, severe without psychotic features, F41.0 - Panic disorder [episodic paroxysmal anxiety], F43.10 - Post-traumatic stress disorder, unspecified, I10 - Essential (primary) hypertension, R44.0 - Auditory hallucinations, R44.1 - Visual hallucinations, R73.01 - Impaired fasting glucose Medications: New lorazepam 1 mg PO BID PRN 60 tabs 0RF anxiety 30 days lamotrigine 25 mg PO DAILY 30 tabs 0RF 30 days Coding Level of Care Code Est Pt Level 4 (73390) Diagnoses Bipolar affective disorder, currently depressed, moderate F31.32 Current episode severity: moderate Severe major depression F32.2 Panic anxiety syndrome F41.0 Visual hallucinations R44.1 Auditory hallucinations R44.0 Essential hypertension I10 Impaired fasting blood sugar R73.01 Vitamin D deficiency E55.9 Lipid disorder E78.9 PTSD (post-traumatic stress disorder) F43.10
== END 2023-08-23 10:29 | disposition home or self-care (01) ==
PROVIDERS: PCP Internal Medicine; Visit Provider Internal Medicine
DX: F31.32 Bipolar disorder, current episode depressed, moderate (principal); F41.0 Panic disorder [episodic paroxysmal anxiety]; R44.1 Visual hallucinations; R44.0 Auditory hallucinations; I10 Essential (primary) hypertension; R73.01 Impaired fasting glucose; E55.9 Vitamin D deficiency, unspecified; E78.9 Disorder of lipoprotein metabolism, unspecified; F43.10 Post-traumatic stress disorder, unspecified
CPT/HCPCS: 99214

== ENCOUNTER 2023-09-16 07:27 | Outpatient (AMB) | payer OTHER, SELFPAY ==
--- NOTE | 2023-09-16 07:34 | A.OFFPC_ITS ---
Intake Visit Reasons: 3 week fu (I phone [phone]) Allergies acetaminophen [From VICODIN] Allergy (Unknown, Verified 09/16/23 07:34) ITCHING hydrocodone [From VICODIN] Allergy (Unknown, Verified 09/16/23 07:34) ITCHING oxycodone [From PERCOCET] Allergy (Unknown, Verified 09/16/23 07:34) ITCHING ibuprofen Adverse Reaction (Verified 09/16/23 07:34) Vomiting Medication List - Last Reconciled 09/16/23 by Fernanda Huerta MD atenolol 25 mg PO DAILY cholecalciferol (vitamin D3) 25 mcg PO DAILY 90 days fluoxetine 20 mg PO BID 90 days lamotrigine 25 mg PO DAILY 30 days lorazepam 1 mg PO BID PRN 30 days quetiapine 1 and half tablet at night and half a tablet in the morning 30 days Tobacco use date assessed: 09/16/23 Dental Screening Dental Screen Date: 09/16/23 Did you have a dental visit in the last 12 months?: No Was dental information given to patient?: No HPI 3 week fu (I phone [phone]) HPI Details Patient is a 53-year-old female this is a telemedicine video conference Patient suffers from severe depression associated psychotic symptoms of hallucination She also suffers from severe anxiety and panic disorder We added lamotrigine last visit, patient says that she developed rash taking medications so she stopped I also at a lorazepam 1 mg up to b.i.d. which patient is taking and is feeling much better Currently patient is also seeing a therapist and is in process of being established with a psych med prescriber However patient is a bit reluctant to have another provider prescribed medications. Explained to her that currently she is still having symptoms of hallucinations I think it will be a reasonable opposed to have the psych med prescriber adjust her medications. Patient agree. I have sent lorazepam for 3 months She will return in 3 months for follow-up. 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 Peter Alvarado, Dilma Victoria, Jerrell Padilla and colleagues, with an educational stephanie from [employer]. Review of Systems Const Denies chills and Denies fever(s) ENT Denies epistaxis and Denies nasal discharge Card Denies chest pain Resp Denies chest congestion, Denies cough and Denies hemoptysis GI Denies diarrhea and Denies nausea Skin/Breast Denies rash Neuro Reports no additional complaints Psych Reports no additional complaints Endo Reports no additional complaints Physical exam (Primary Care) Tobacco/Smoking Status: Tobacco use Status Tobacco use date assessed 09/16/23 09/16/23 07:36 Patient Tobacco Use Status Current someday Tobacco 09/16/23 07:36 e-Cigarette/Vaping Use Never Used 09/16/23 07:36 Thrive Assessment: Date of Thrive Assessment Date Thrive assessed 06/21/23 09/16/23 07:36 Telehealth Telehealth Location of provider rendering services: practice address Location of patient: address on file Patient Identification confirmed using: Name, : Yes Telehealth method: video Patient verbally consented to treatment: Yes Patient verbally consented to billing insurance company: Yes Patient informed of any privacy concerns related to visit: Yes Minutes spent on Phone/Video with Pt.: 13 Assessment and Plan Assessment & Plan (1) Bipolar disorder current episode depressed: Code(s): F31.30 - Bipolar disorder, current episode depressed, mild or moderate severity, unspecified Qualifiers: Current episode severity: moderate Qualified Code(s): F31.32 - Bipolar disorder, current episode depressed, moderate (2) Severe major depression: Code(s): F32.2 - Major depressive disorder, single episode, severe without psychotic features (3) Panic anxiety syndrome: Code(s): F41.0 - Panic disorder [episodic paroxysmal anxiety] (4) Visual hallucinations: Code(s): R44.1 - Visual hallucinations (5) Auditory hallucinations: Code(s): R44.0 - Auditory hallucinations (6) PTSD (post-traumatic stress disorder): Code(s): F43.10 - Post-traumatic stress disorder, unspecified Plan Patient is a 53-year-old female this is a telemedicine video conference Patient suffers from severe depression associated psychotic symptoms of hallucination She also suffers from severe anxiety and panic disorder We added lamotrigine last visit, patient says that she developed rash taking medications so she stopped I also at a lorazepam 1 mg up to b.i.d. which patient is taking and is feeling much better Currently patient is also seeing a therapist and is in process of being established with a psych med prescriber However patient is a bit reluctant to have another provider prescribed medications. Explained to her that currently she is still having symptoms of hallucinations I think it will be a reasonable opposed to have the psych med prescriber adjust her medications. Patient agree. I have sent lorazepam for 3 months She will return in 3 months for follow-up. Medications: Refilled lorazepam 1 mg PO BID PRN 60 tabs 2RF anxiety 30 days Coding Level of Care Code Tele Est Pt Level 3 (08965) Diagnoses Bipolar affective disorder, currently depressed, moderate F31.32 Current episode severity: moderate Severe major depression F32.2 Panic anxiety syndrome F41.0 Visual hallucinations R44.1 Auditory hallucinations R44.0 PTSD (post-traumatic stress disorder) F43.10
== END 2023-09-16 12:23 | disposition home or self-care (01) ==
LOC: HO.HMGC 07:27
PROVIDERS: PCP Internal Medicine; Visit Provider Internal Medicine
DX: F31.32 Bipolar disorder, current episode depressed, moderate (principal); F41.0 Panic disorder [episodic paroxysmal anxiety]; R44.1 Visual hallucinations; R44.0 Auditory hallucinations; F43.10 Post-traumatic stress disorder, unspecified
CPT/HCPCS: 99213

== ENCOUNTER 2023-11-23 09:37 | Outpatient (AMB) | payer OTHER, SELFPAY ==
[2023-11-23 09:39] VITALS: BP 140/72; PULSE 81; O2SAT 97; BMI 31.1
--- NOTE | 2023-11-23 09:39 | MHC.PC.OV ---
Vital Signs 11/23/23 09:39 Height 5 ft 7 in Weight 198 lb 6 oz BMI 31.1 BP 140/72 H Blood Pressure Location Lt brachial Position Sitting Pulse 81 Pulse Source Pulse Oximeter Pulse Oximetry (%) 97 Oxygen Delivery Method Room Air Intake Visit Reasons: 3 month fu Allergies acetaminophen [From VICODIN] Allergy (Unknown, Verified 11/23/23 09:39) ITCHING hydrocodone [From VICODIN] Allergy (Unknown, Verified 11/23/23 09:39) ITCHING oxycodone [From PERCOCET] Allergy (Unknown, Verified 11/23/23 09:39) ITCHING ibuprofen Adverse Reaction (Verified 11/23/23 09:39) Vomiting lamotrigine Adverse Reaction (Verified 11/23/23 10:06) Rash Medication List - Last Reconciled 11/23/23 by Fernanda Huerta MD atenolol 25 mg PO DAILY cholecalciferol (vitamin D3) 25 mcg PO DAILY 90 days fluoxetine 20 mg PO BID 90 days lamotrigine 25 mg PO DAILY 30 days lorazepam 1 mg PO BID PRN 30 days quetiapine 1 and half tablet at night and half a tablet in the morning 30 days Tobacco use date assessed: 11/23/23 Dental Screening Dental Screen Date: 11/23/23 Did you have a dental problem in the last 6 months where you did not have access to dental care?: No HPI 3 month fu HPI Details Patient is a 53-year-old female this is a regular follow-up appointment Blood pressure is slightly elevated today, patient is feeling upset about check in process We rechecked blood pressure it is still in 140s systolic, patient is on atenolol 25 mg and is tolerating medication Her blood pressure in August was within normal limit Patient suffers from severe depression associated psychotic symptoms of hallucination She also suffers from severe anxiety and panic disorder I also at a lorazepam 1 mg up to b.i.d. which patient is taking and is feeling much better She has started seeing therapist however the visit with a psychiatrist did not go well, patient says that she is looking for a new psychiatrist He will continue medication until she find the psychiatrist I have sent lorazepam for 3 months Complaining of constipation, she has hemorrhoids I have sent MiraLax she is to start taking that once a day in tall glass of water On examination her the hemorrhoids are not thrombosed She is complaining of pain right upper quadrant off and on for that I have ordered ultrasound of abdomen She says that she also have difficulty digesting fat Patient forgot to do labs that I ordered last visit, she will have them done today [facility] Medical History Depression Anxiety Essential hypertension Family History Brother Substance use disorder Mental health disorder Sister Substance use disorder Mental health disorder Father Mental health disorder Social History Housing: House Patient Tobacco Use Status: Current someday Tobacco user e-Cigarette/Vaping Use: Never Used service: No Current occupational status: disabled 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 1. Little interest or pleasure in doing things: nearly every day 2. Feeling down, depressed, or hopeless: nearly every day 3. Trouble falling or staying asleep, or sleeping too much: more than half the days 4. Feeling tired or having little energy: nearly every day 5. Poor appetite or overeating: more than half the days 6. Feeling bad about yourself - or that you are a failure or have let yourself or your family down: more than half the days 7. Trouble concentrating on things, such as reading the newspaper or watching television: more than half the days 8. Moving or speaking so slowly that other people could have noticed. Or the opposite - being so fidgety or restless that you have been moving around a lot more than usual: more than half the days 9. Thoughts that you would be better off or of hurting yourself in some way: more than half the days Total score: 21 Depression Screening Interpretation: Positive Depression Screening Follow-up: Existing condition and In treatment Depression Screening Done: Yes 55778 - PHQ-9 Billing: Yes Source: Developed by Drs. Peter Alvarado, Dilma Victoria, Jerrell Padilla and colleagues, with an educational stephanie from [employer]. Thrive Questionnaire Date Thrive assessed: 11/23/23 I am a: Patient What is your living situation today?: I have a steady place to live Within the past 12 months, did the food you bought not last and you didn't have the money to get more?: Never true Within the past 12 months, did you worry whether your food would run out before you got money to buy more?: Never true Do you have trouble paying for medicines?: No Do you have trouble getting transportation to medical appointments?: No Do you have trouble paying your heating and electricity bill?: No Do you have trouble taking care of your child, family member or friend?: No Do you have trouble with day-to-day activities such as bathing, preparing meals, shopping, managing finances, etc.?: Yes Are you currently unemployed and looking for a job?: No Are you interested in more education?: No Please select the resources that you would like help with: None Currently or been in a relationship where the following occur: no concerns reported THRIVE Score: 0 AUDIT C Alcohol Use Questionnaire (AUDIT-C) 1. How often do you have a drink containing alcohol?: Never 3. How often do you have six or more drinks on one occasion?: Never Total Score: 0 Score Reviewed/Action Taken: Yes JAVY-7 AMB Questionnaire JAVY-7 Date JAVY - 7 assessed: 11/23/23 Feeling nervous, anxious, or on edge: 3 = Nearly every day Not being able to stop or control worryin = Nearly every day Worrying too much about different things: 3 = Nearly every day Trouble relaxin = More than half the days Being so restless that it is hard to sit still: 2 = More than half the days Becoming easily annoyed or irritable: 2 = More than half the days Feeling afraid as if something awful might happen: 2 = More than half the days Total JAVY-7 score (0-4 normal; 5-9 mild; 10-14 moderate; 15-21 severe): 17 Source: Developed by Drs. Peter Alvarado, Dilma Victoria, Jerrell Padilla and colleagues, with an educational stephanie from [employer]. JAVY-7 Assessment Billing JAVY-7 Assessment Tool: JAVY-7 Assessment 87547 Review of Systems Const Denies chills and Denies fever(s) ENT Denies epistaxis and Denies nasal discharge Card Denies chest pain Resp Denies chest congestion, Denies cough and Denies hemoptysis GI Denies diarrhea and Denies nausea Skin/Breast Denies rash Neuro Reports no additional complaints Psych Reports no additional complaints Endo Reports no additional complaints Physical exam (Primary Care) Vital Signs: Last Vital Signs Pulse 81 11/23/23 09:39 BP 140/72 H 11/23/23 09:39 Pulse Ox 97 11/23/23 09:39 Oxygen Delivery Method Room Air 11/23/23 09:39 BMI result Body Mass Index 31.1 Tobacco/Smoking Status: Tobacco use Status Tobacco use date assessed 11/23/23 11/23/23 09:40 Patient Tobacco Use Status Current someday Tobacco 11/23/23 09:40 e-Cigarette/Vaping Use Never Used 11/23/23 09:40 PHQ-9: PHQ-9 Score PHQ-9: Total score 11/23/23 10:08 Depression Screening Interpretation: Positive Depression Screening Follow-up: Existing condition and In treatment Thrive Assessment: Date of Thrive Assessment Date Thrive assessed 11/23/23 11/23/23 10:06 Currently or been in a relationship where the following occur: no concerns reported Const General: cooperative, comfortable and no acute distress Orientation/consciousness: patient oriented x3 HENMT Head: Yes normocephalic Eyes General: appearance normal, both eyes and all related structures Neck Neck: Yes supple Resp Effort & Inspection: normal respiratory effort, no cough and no stridor Cardio Rhythm: regular rhythm Heart sounds: S1 normal heart sound present and S2 normal heart sound present Skin General skin exam: turgor normal Neuro General: patient oriented x3, tone normal and moves all extremities Extrem Right lower extremity: no edema Left lower extremity: no edema Assessment and Plan Assessment & Plan (1) Right upper quadrant pain: Code(s): R10.11 - Right upper quadrant pain (2) Bipolar disorder current episode depressed: Code(s): F31.30 - Bipolar disorder, current episode depressed, mild or moderate severity, unspecified Qualifiers: Current episode severity: moderate Qualified Code(s): F31.32 - Bipolar disorder, current episode depressed, moderate (3) Severe major depression: Code(s): F32.2 - Major depressive disorder, single episode, severe without psychotic features (4) Panic anxiety syndrome: Code(s): F41.0 - Panic disorder [episodic paroxysmal anxiety] (5) Visual hallucinations: Code(s): R44.1 - Visual hallucinations (6) Auditory hallucinations: Code(s): R44.0 - Auditory hallucinations (7) PTSD (post-traumatic stress disorder): Code(s): F43.10 - Post-traumatic stress disorder, unspecified (8) Essential hypertension: Code(s): I10 - Essential (primary) hypertension Plan Patient is a 53-year-old female this is a regular follow-up appointment Blood pressure is slightly elevated today, patient is feeling upset about check in process We rechecked blood pressure it is still in 140s systolic, patient is on atenolol 25 mg and is tolerating medication Her blood pressure in August was within normal limit Patient suffers from severe depression associated psychotic symptoms of hallucination She also suffers from severe anxiety and panic disorder I also at a lorazepam 1 mg up to b.i.d. which patient is taking and is feeling much better She has started seeing therapist however the visit with a psychiatrist did not go well, patient says that she is looking for a new psychiatrist He will continue medication until she find the psychiatrist I have sent lorazepam for 3 months Complaining of constipation, she has hemorrhoids I have sent MiraLax she is to start taking that once a day in tall glass of water On examination her the hemorrhoids are not thrombosed She is complaining of pain right upper quadrant off and on for that I have ordered ultrasound of abdomen She says that she also have difficulty digesting fat Patient forgot to do labs that I ordered last visit, she will have them done today Orders: Orders US abdomen complete Today R10.11 - Right upper quadrant pain Medications: New polyethylene glycol 3350 (Miralax) 17 grams PO DAILY 1,530 grams 0RF 90 days Refilled lorazepam 1 mg PO BID PRN 60 tabs 2RF anxiety 30 days fluoxetine 20 mg PO BID 180 caps 2RF 90 days atenolol 25 mg PO DAILY 90 tabs 0RF Blood pressure quetiapine 1 and half tablet at night and half a tablet in the morning 60 tabs 0RF 30 days Discontinued lamotrigine Discontinued Reason: Doctor's Order 25 mg PO DAILY 30 days 30 tabs 0RF Coding Level of Care Code Est Pt Level 4 (36066) Diagnoses Right upper quadrant pain R10.11 Bipolar affective disorder, currently depressed, moderate F31.32 Current episode severity: moderate Severe major depression F32.2 Panic anxiety syndrome F41.0 Visual hallucinations R44.1 Auditory hallucinations R44.0 PTSD (post-traumatic stress disorder) F43.10 Essential hypertension I10 Additional Codes JAVY-7 Assessment Billing - JAVY-7 Assessment Tool: JAVY-7 Assessment 17914 ([id number])
== END 2023-11-23 10:11 | disposition home or self-care (01) ==
PROVIDERS: PCP Internal Medicine; Visit Provider Internal Medicine
DX: R10.11 Right upper quadrant pain (principal); F31.32 Bipolar disorder, current episode depressed, moderate; F41.0 Panic disorder [episodic paroxysmal anxiety]; R44.1 Visual hallucinations; R44.0 Auditory hallucinations; F43.10 Post-traumatic stress disorder, unspecified; I10 Essential (primary) hypertension
CPT/HCPCS: 99214

== ENCOUNTER 2023-11-23 10:12 | Outpatient (REF) | payer OTHER, SELFPAY ==
[2023-11-23 13:16] LABS: MANUAL DIFF FLAG NO
[2023-11-23 13:39] LABS: Basophils Absolute Auto 0.1 X10*3/uL (0.0-0.2); Basophils Percent Auto 0.6 % (0-2); Eosinophils Absolute Auto 0.2 X10*3/uL (0.0-0.4); Eosinophils Percent Auto 1.8 % (0-4); Hematocrit 46.2 % (37.0-47.0); Imm Gran Abs Auto 0.02 X10*3/uL (0.00-0.03); Imm Gran Pct Auto 0.2 % (0.0-0.4); Lymphocytes Absolute Auto 2.5 X10*3/uL (1.2-4.9); Lymphocytes Percent Auto 27.1 % (20-40); Mean Corpuscular HGB Conc 32.5 g/dl (31.0-35.0); Mean Corpuscular Hemoglobin 29.8 pg (27.0-33.0); Mean Corpuscular Volume 91.8 fL (80.0-98.0); Mean Platelet Volume 10.4 fL (9.4-12.3); Monocytes Absolute Auto 0.5 X10*3/uL (0.1-1.2); Monocytes Percent Auto 5.3 % (2-11); Neutrophils Absolute Auto 5.9 x10*3/uL (2.0-8.3); Platelet Count 206 X10*3/uL (160-400); Red Blood Count 5.03 X10*6/uL (4.20-5.50); Red Cell Distribution Width 12.9 % (11.0-16.0)
[2023-11-23 13:52] LABS: Estimated Average Glucose 126 mg/dL
[2023-11-23 13:56] LABS: Alanine Aminotransferase 17 U/L (0-31); Albumin Level 4.3 g/dL (3.5-5.0); Alkaline Phosphatase 59 U/L (39-117); Anion Gap 13 (12-20); Aspartate Amino Transferase 13 U/L (5-31); Bilirubin Total 0.3 mg/dL (0.0-1.0); Blood Urea Nitrogen 12 mg/dL (9-16); Calcium 9.5 mg/dL (8.4-10.2); Carbon Dioxide 26 mmol/L (22-29); Chloride 107 mmol/L (96-108); Estimated Glomerular Filt Rate > 60; Glucose Random 92 mg/dL (60-115); Potassium 4.4 mmol/L (3.3-5.1); Sodium 142 mmol/L (135-145); Total Protein 7.1 g/dL (6.5-8.0)
[2023-11-24 12:38] LABS: LDL Cholesterol Direct 147 mg/dL (<100)
== END 2023-11-23 10:13 | disposition home or self-care (01) ==
LOC: HO.HMGCLDS 10:12
PROVIDERS: PCP Internal Medicine; Visit Provider Internal Medicine
DX: I10 Essential (primary) hypertension (principal); R73.01 Impaired fasting glucose; E78.9 Disorder of lipoprotein metabolism, unspecified; E55.9 Vitamin D deficiency, unspecified; F31.30 Bipolar disorder, current episode depressed, mild or moderate severity, unspecified; F41.0 Panic disorder [episodic paroxysmal anxiety]; R44.1 Visual hallucinations; R44.0 Auditory hallucinations; F43.10 Post-traumatic stress disorder, unspecified
CPT/HCPCS: 36415; 80053; 83036; 83721; 85025

== ENCOUNTER 2023-12-09 08:52 | Outpatient (REF) | payer OTHER, SELFPAY ==
--- NOTE | ~2023-12-09 | US_ITS ---
EXAMINATION: US ABDOMEN COMPLETE CLINICAL INFORMATION: Right upper quadrant pain. COMPARISON: None available. TECHNIQUE: Real-time imaging of the abdominal viscera. FINDINGS: PANCREAS: Normal head and body, tail is obscured by bowel gas. The pancreatic duct measures 0.15 cm. ABDOMINAL AORTA: The abdominal aorta is normal caliber. There is marked atherosclerosis within the distal abdominal aorta. INFERIOR VENA CAVA: Visualized portions are normal. LIVER: The liver is normal in size. The liver contour is normal. There is mild diffuse increased liver parenchymal echogenicity, consistent with hepatic steatosis. No focal hepatic lesion. There is no intrahepatic biliary duct dilatation seen. GALLBLADDER: The gallbladder is physiologically distended without evidence of stones, sludge, polyps, wall thickening or pericholecystic fluid. Small calcification with ringdown artifact in the gallbladder fundus is consistent with adenomyomatosis COMMON BILE DUCT: Normal in caliber measuring 0.6 cm in diameter. RIGHT KIDNEY: Normal. No hydronephrosis. No renal calculi or focal parenchymal lesions. The kidney measures 12.7 cm in maximum dimension. LEFT KIDNEY: Normal. No hydronephrosis. No renal calculi or focal parenchymal lesions. The kidney measures 12.7 cm in maximum dimension. SPLEEN: Normal. The spleen measures 11.5 cm in maximum dimension. FREE FLUID: None. US/US abdomen complete IMPRESSION: 1. Mild hepatic steatosis. 2. Adenomyomatosis of the gallbladder. 3. Marked atherosclerosis of the distal abdominal aorta.
== END 2023-12-09 08:53 | disposition home or self-care (01) ==
LOC: HO.HMGCX 08:52
PROVIDERS: PCP Internal Medicine; Visit Provider Internal Medicine
DX: R10.11 Right upper quadrant pain (principal)
CPT/HCPCS: 76700

== ENCOUNTER 2023-12-15 08:55 | Outpatient (AMB) | payer OTHER, SELFPAY ==
--- NOTE | 2023-12-15 08:56 | MHC.PC.OV ---
Intake Visit Reasons: Discuss US Report~ Allergies acetaminophen [From VICODIN] Allergy (Unknown, Verified 12/15/23 08:56) ITCHING hydrocodone [From VICODIN] Allergy (Unknown, Verified 12/15/23 08:56) ITCHING oxycodone [From PERCOCET] Allergy (Unknown, Verified 12/15/23 08:56) ITCHING ibuprofen Adverse Reaction (Verified 12/15/23 08:56) Vomiting lamotrigine Adverse Reaction (Verified 12/15/23 08:56) Rash Medication List - Last Reconciled 12/15/23 by Fernanda Huerta MD atenolol 25 mg PO DAILY cholecalciferol (vitamin D3) 25 mcg PO DAILY 90 days fluoxetine 20 mg PO BID 90 days lorazepam 1 mg PO BID PRN 30 days polyethylene glycol 3350 (Miralax) 17 grams PO DAILY 90 days quetiapine 1 and half tablet at night and half a tablet in the morning 30 days Tobacco use date assessed: 12/15/23 Dental Screening Dental Screen Date: 12/15/23 Did you have a dental visit in the last 12 months?: No Did you have a dental problem in the last 6 months where you did not have access to dental care?: No Was dental information given to patient?: Patient has dentist HPI Discuss US Report~ HPI Details Patient is a 53-year-old female who was seen few days ago and she complained of right upper quadrant pain off and on I ordered ultrasound for the patient Which showed Mild hepatic steatosis. Adenomyomatosis of the gallbladder. And Marked atherosclerosis of the distal abdominal aorta. Findings explained to patient, adeno myoma doses of call better is a benign condition which causes hyperplasia of mucosa of the gallbladder She says that she will start eating healthy and avoid fatty foods However marked atherosclerosis of distal abdominal aorta need to be further evaluated I will be walking her appointment with Cardiology [facility] Medical History Depression Anxiety Essential hypertension Family History Brother Substance use disorder Mental health disorder Sister Substance use disorder Mental health disorder Father Mental health disorder Social History Housing: House Patient Tobacco Use Status: Current someday Tobacco user e-Cigarette/Vaping Use: Never Used service: No Current occupational status: disabled 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 How often do you have a drink containing alcohol?: Never 3. How often do you have six or more drinks on one occasion?: Never Total Score: 0 Score Reviewed/Action Taken: Yes JAVY-7 AMB Questionnaire JAVY-7 Date JAVY - 7 assessed: 11/23/23 Source: Developed by Drs. Peter Alvarado, Dilma Victoria, Jerrell Padilla and colleagues, with an educational stephanie from [employer]. Review of Systems Const Denies chills and Denies fever(s) ENT Denies epistaxis and Denies nasal discharge Card Denies chest pain Resp Denies chest congestion, Denies cough and Denies hemoptysis GI Denies diarrhea and Denies nausea Skin/Breast Denies rash Neuro Reports no additional complaints Psych Reports no additional complaints Endo Reports no additional complaints Physical exam (Primary Care) Tobacco/Smoking Status: Tobacco use Status Tobacco use date assessed 12/15/23 12/15/23 08:57 Patient Tobacco Use Status Current someday Tobacco 12/15/23 08:57 e-Cigarette/Vaping Use Never Used 12/15/23 08:57 Thrive Assessment: Date of Thrive Assessment Date Thrive assessed 11/23/23 12/15/23 08:57 Telehealth Telehealth Location of provider rendering services: practice address Location of patient: address on file Patient Identification confirmed using: Name, : Yes Telehealth method: video Patient verbally consented to treatment: Yes Patient verbally consented to billing insurance company: Yes Patient informed of any privacy concerns related to visit: Yes Minutes spent on Phone/Video with Pt.: 14 Assessment and Plan Assessment & Plan (1) Fatty liver: Code(s): K76.0 - Fatty (change of) liver, not elsewhere classified (2) Adenomyomatosis of gallbladder: Code(s): D13.5 - Benign neoplasm of extrahepatic bile ducts (3) Atherosclerosis of abdominal aorta: Code(s): I70.0 - Atherosclerosis of aorta Plan Patient is a 53-year-old female who was seen few days ago and she complained of right upper quadrant pain off and on I ordered ultrasound for the patient Which showed Mild hepatic steatosis. Adenomyomatosis of the gallbladder. And Marked atherosclerosis of the distal abdominal aorta. Findings explained to patient, adeno myoma doses of call better is a benign condition which causes hyperplasia of mucosa of the gallbladder She says that she will start eating healthy and avoid fatty foods However marked atherosclerosis of distal abdominal aorta need to be further evaluated I will be walking her appointment with Cardiology Orders: Referrals Cardiology Referral I70.0 - Atherosclerosis of aorta Coding Level of Care Code Tele Est Pt Level 3 (55066) Diagnoses Fatty liver K76.0 Adenomyomatosis of gallbladder D13.5 Atherosclerosis of abdominal aorta I70.0
== END 2023-12-15 15:14 | disposition home or self-care (01) ==
LOC: HO.HMGC 08:55
PROVIDERS: PCP Internal Medicine; Visit Provider Internal Medicine
DX: K76.0 Fatty (change of) liver, not elsewhere classified (principal); D13.5 Benign neoplasm of extrahepatic bile ducts; I70.0 Atherosclerosis of aorta
CPT/HCPCS: 99213

== ENCOUNTER 2024-02-15 08:38 | Outpatient (AMB) | payer OTHER, SELFPAY ==
[2024-02-15 08:40] VITALS: BP 136/70; PULSE 79; O2SAT 96; BMI 28.7
--- NOTE | 2024-02-15 08:40 | A.OFFPC_ITS ---
Vital Signs 02/15/24 08:40 Height 5 ft 7 in Weight 183 lb 6 oz BMI 28.7 BP 136/70 Blood Pressure Location Rt brachial Position Sitting Pulse 79 Pulse Source Pulse Oximeter Pulse Oximetry (%) 96 Oxygen Delivery Method Room Air Intake Visit Reasons: 3 month fu Allergies acetaminophen [From VICODIN] Allergy (Unknown, Verified 02/15/24 08:44) ITCHING hydrocodone [From VICODIN] Allergy (Unknown, Verified 02/15/24 08:44) ITCHING oxycodone [From PERCOCET] Allergy (Unknown, Verified 02/15/24 08:44) ITCHING ibuprofen Adverse Reaction (Verified 02/15/24 08:44) Vomiting lamotrigine Adverse Reaction (Verified 02/15/24 08:44) Rash Medication List - Last Reconciled 02/15/24 by Fernanda Huerta MD atenolol 25 mg PO DAILY cholecalciferol (vitamin D3) 25 mcg PO DAILY 90 days fluoxetine 20 mg PO BID 90 days lorazepam 1 mg PO BID PRN 30 days polyethylene glycol 3350 (Miralax) 17 grams PO DAILY 90 days trazodone 50 mg PO BEDTIME PRN Tobacco use date assessed: 02/15/24 Dental Screening Dental Screen Date: 02/15/24 Did you have a dental visit in the last 12 months?: Yes Did you have a dental problem in the last 6 months where you did not have access to dental care?: No Was dental information given to patient?: Patient has dentist HPI 3 month fu HPI Details Patient had ultrasound done earlier this year which showed 1. Mild hepatic steatosis. 2. Adenomyomatosis of the gallbladder. 3. Marked atherosclerosis of the distal abdominal aorta. After that patient has changed her lifestyle, eating healthy She was able to lose some weight and is feeling much better Discomfort that she was having right upper quadrant has resolved She has appointment with the nurse practitioner home assessments coming up March 23 Patient will return in May for physical examination, I have placed order for labs to be done fasting She now has a psychiatrist Rolanda Patel, all psychiatric medications through her She also has a therapist. Only medication from this office will be atenolol 25 mg, MiraLax, and vitamin-D. 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 How often do you have a drink containing alcohol?: Never 3. How often do you have six or more drinks on one occasion?: Never Total Score: 0 Score Reviewed/Action Taken: Yes JAVY-7 AMB Questionnaire JAVY-7 Date JAVY - 7 assessed: 11/23/23 Source: Developed by Drs. Peter Alvarado, Dilma Victoria, Jerrell Padilla and colleagues, with an educational stephanie from [employer]. Review of Systems Const Denies chills and Denies fever(s) ENT Denies epistaxis and Denies nasal discharge Card Denies chest pain Resp Denies chest congestion, Denies cough and Denies hemoptysis GI Denies diarrhea and Denies nausea Skin/Breast Denies rash Neuro Reports no additional complaints Psych Reports no additional complaints Endo Reports no additional complaints Physical exam (Primary Care) Vital Signs: Last Vital Signs Pulse 79 02/15/24 08:40 BP 136/70 02/15/24 08:40 Pulse Ox 96 02/15/24 08:40 Oxygen Delivery Method Room Air 02/15/24 08:40 BMI result Body Mass Index 28.7 Tobacco/Smoking Status: Tobacco use Status Tobacco use date assessed 02/15/24 02/15/24 08:46 Patient Tobacco Use Status Current someday Tobacco 02/15/24 08:46 e-Cigarette/Vaping Use Never Used 02/15/24 08:46 Thrive Assessment: Date of Thrive Assessment Date Thrive assessed 11/23/23 02/15/24 08:46 Const General: cooperative, comfortable and no acute distress Orientation/consciousness: patient oriented x3 HENMT Head: Yes normocephalic Eyes General: appearance normal, both eyes and all related structures Neck Neck: Yes supple Resp Effort & Inspection: normal respiratory effort, no cough and no stridor Cardio Rhythm: regular rhythm Heart sounds: S1 normal heart sound present and S2 normal heart sound present Skin General skin exam: turgor normal Neuro General: patient oriented x3, tone normal and moves all extremities Extrem Right lower extremity: no edema Left lower extremity: no edema Assessment and Plan Assessment & Plan (1) Essential hypertension: Code(s): I10 - Essential (primary) hypertension (2) Fatty liver: Code(s): K76.0 - Fatty (change of) liver, not elsewhere classified (3) Adenomyomatosis of gallbladder: Code(s): D13.5 - Benign neoplasm of extrahepatic bile ducts (4) Atherosclerosis of abdominal aorta: Code(s): I70.0 - Atherosclerosis of aorta (5) Bipolar disorder current episode depressed: Code(s): F31.30 - Bipolar disorder, current episode depressed, mild or moderate severity, unspecified Qualifiers: Current episode severity: moderate Qualified Code(s): F31.32 - Bipolar disorder, current episode depressed, moderate (6) Severe major depression: Code(s): F32.2 - Major depressive disorder, single episode, severe without psychotic features (7) Panic anxiety syndrome: Code(s): F41.0 - Panic disorder [episodic paroxysmal anxiety] (8) Visual hallucinations: Code(s): R44.1 - Visual hallucinations (9) Auditory hallucinations: Code(s): R44.0 - Auditory hallucinations (10) PTSD (post-traumatic stress disorder): Code(s): F43.10 - Post-traumatic stress disorder, unspecified (11) Vitamin D deficiency: Code(s): E55.9 - Vitamin D deficiency, unspecified (12) Impaired fasting blood sugar: Code(s): R73.01 - Impaired fasting glucose (13) Constipation by delayed colonic transit: Code(s): K59.01 - Slow transit constipation (14) Lipid disorder: Code(s): E78.9 - Disorder of lipoprotein metabolism, unspecified Plan Patient had ultrasound done earlier this year which showed 1. Mild hepatic steatosis. 2. Adenomyomatosis of the gallbladder. 3. Marked atherosclerosis of the distal abdominal aorta. After that patient has changed her lifestyle, eating healthy She was able to lose some weight and is feeling much better Discomfort that she was having right upper quadrant has resolved She has appointment with the nurse practitioner home assessments coming up March 23 Patient will return in May for physical examination, I have placed order for labs to be done fasting She now has a psychiatrist Rolanda Patel, all psychiatric medications through her She also has a therapist. , patient suffers from major depression and bipolar disorder along with PTSD Only medication from this office will be atenolol 25 mg, MiraLax, and vitamin-D. Orders: Orders Complete Blood Count Auto Diff 3 Months E55.9 - Vitamin D deficiency, unspecified, E78.9 - Disorder of lipoprotein metabolism, unspecified, F31.32 - Bipolar disorder, current episode depressed, moderate, I10 - Essential (primary) hypertension, I70.0 - Atherosclerosis of aorta, K76.0 - Fatty (change of) liver, not elsewhere classified, R73.01 - Impaired fasting glucose Comprehensive [place]. Panel Fast 3 Months E55.9 - Vitamin D deficiency, unspecified, E78.9 - Disorder of lipoprotein metabolism, unspecified, F31.32 - Bipolar disorder, current episode depressed, moderate, I10 - Essential (primary) hypertension, I70.0 - Atherosclerosis of aorta, K76.0 - Fatty (change of) liver, not elsewhere classified, R73.01 - Impaired fasting glucose Lipid Panel 3 Months E55.9 - Vitamin D deficiency, unspecified, E78.9 - Disorder of lipoprotein metabolism, unspecified, F31.32 - Bipolar disorder, current episode depressed, moderate, I10 - Essential (primary) hypertension, I70.0 - Atherosclerosis of aorta, K76.0 - Fatty (change of) liver, not elsewhere classified, R73.01 - Impaired fasting glucose TSH reflex Free T4 3 Months E55.9 - Vitamin D deficiency, unspecified, E78.9 - Disorder of lipoprotein metabolism, unspecified, F31.32 - Bipolar disorder, current episode depressed, moderate, I10 - Essential (primary) hypertension, I70 .0 - Atherosclerosis of aorta, K76.0 - Fatty (change of) liver, not elsewhere classified, R73.01 - Impaired fasting glucose Vitamin D 25-OH (D2 and D3) 3 Months E55.9 - Vitamin D deficiency, unspecified, E78.9 - Disorder of lipoprotein metabolism, unspecified, F31.32 - Bipolar disorder, current episode depressed, moderate, I10 - Essential (primary) hypertension, I70.0 - Atherosclerosis of aorta, K76.0 - Fatty (change of) liver, not elsewhere classified, R73.01 - Impaired fasting glucose Hemoglobin A1c 3 Months E55.9 - Vitamin D deficiency, unspecified, E78.9 - Disorder of lipoprotein metabolism, unspecified, F31.32 - Bipolar disorder, current episode depressed, moderate, I10 - Essential (primary) hypertension, I70.0 - Atherosclerosis of aorta, K76.0 - Fatty (change of) liver, not elsewhere classified, R73.01 - Impaired fasting glucose Medications: Refilled cholecalciferol (vitamin D3) 25 mcg PO DAILY 90 caps 0RF 90 days atenolol 25 mg PO DAILY 90 tabs 0RF Blood pressure Coding Level of Care Code Est Pt Level 4 (71932) Diagnoses Essential hypertension I10 Fatty liver K76.0 Adenomyomatosis of gallbladder D13.5 Atherosclerosis of abdominal aorta I70.0 Bipolar affective disorder, currently depressed, moderate F31.32 Current episode severity: moderate Severe major depression F32.2 Panic anxiety syndrome F41.0 Visual hallucinations R44.1 Auditory hallucinations R44.0 PTSD (post-traumatic stress disorder) F43.10 Vitamin D deficiency E55.9 Impaired fasting blood sugar R73.01 Constipation by delayed colonic transit K59.01 Lipid disorder E78.9
== END 2024-02-15 11:48 | disposition home or self-care (01) ==
PROVIDERS: PCP Internal Medicine; Visit Provider Internal Medicine
DX: I10 Essential (primary) hypertension (principal); I70.0 Atherosclerosis of aorta; F31.32 Bipolar disorder, current episode depressed, moderate; K76.0 Fatty (change of) liver, not elsewhere classified; D13.5 Benign neoplasm of extrahepatic bile ducts; F41.0 Panic disorder [episodic paroxysmal anxiety]; R44.1 Visual hallucinations; R44.0 Auditory hallucinations; F43.10 Post-traumatic stress disorder, unspecified; E55.9 Vitamin D deficiency, unspecified
CPT/HCPCS: 99214

== ENCOUNTER 2024-03-14 14:39 | Outpatient (AMB) | payer OTHER, SELFPAY ==
--- NOTE | 2024-03-14 14:47 | MHC.OFFVIS ---
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 Allergies acetaminophen [From VICODIN] Allergy (Unknown, Verified 02/15/24 08:44) ITCHING hydrocodone [From VICODIN] Allergy (Unknown, Verified 02/15/24 08:44) ITCHING oxycodone [From PERCOCET] Allergy (Unknown, Verified 02/15/24 08:44) ITCHING ibuprofen Adverse Reaction (Verified 02/15/24 08:44) Vomiting lamotrigine Adverse Reaction (Verified 02/15/24 08:44) Rash Medication List - Last Reconciled 03/14/24 by Sanchez Sawant MD aripiprazole 2 mg PO BEDTIME atenolol 25 mg PO DAILY cholecalciferol (vitamin D3) 25 mcg PO DAILY 90 days fluoxetine 20 mg PO BID 90 days lorazepam 1 mg PO BID PRN 30 days polyethylene glycol 3350 (Miralax) 17 grams PO DAILY 90 days trazodone 50 mg PO BEDTIME PRN HPI Comments Details: Thank you for referring Rosie in cardiology consultation today with prior history of hyperlipidemia, PTSD, hypertension, bipolar disorder with mostly anxiety. Patient recently had abdominal ultrasound and she was told that she had fatty liver and fatty heart. She is confused about this. Review the echocardiogram does suggest a fatty liver by ultrasound but also significant atherosclerosis in the distal abdominal aorta. She was not aware of it. She has never had prior vascular events. Denies any symptoms of claudication. Says since been told she has modified her lifestyle and diet and has lost about 30 lb. She has currently not on statin therapy. She denies any symptoms of clear exertional chest pain or shortness of breath. Remains active and able to do her day-to-day activities without issues. She is strong family history of premature atherosclerosis with a brother dying few years ago suddenly with a massive CO as per her. She unfortunately continues to smoke but has been cutting down. A blood pressures been usually well controlled. She denies any prolonged palpitations. No heart failure symptoms. No lightheadedness, syncope. 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 Cognitive needs: No Hearing needs: No Vision needs: Yes Review of Systems Const Denies chills, Denies daytime sleepiness, Denies fatigue, Denies fever(s), Denies frequent falls, Denies poor appetite, Denies snoring, Denies stops breathing during sleep, Denies weakness, Denies weight gain and Denies weight loss Eyes Denies loss of vision ENT Denies dizziness and Denies hearing loss Card Denies chest pain, Denies claudication, Denies leg edema, Denies lightheadedness, Denies palpitations, Denies dyspnea, Denies dyspnea on exertion and Denies orthopnea Resp Denies cough, Denies excessive phlegm production, Denies dyspnea, Denies dyspnea on exertion, Denies snoring and Denies wheezing GI Denies abdominal pain, Denies hematochezia, Denies change in bowel habits, Denies nausea and Denies vomiting Denies urinary frequency and Denies dysuria Musc Denies arthralgias, Denies muscle weakness, Denies numbness and Denies other (frequent falls) Skin/Breast Denies nail changes and Denies rash Neuro Denies Abnormal speech present, Denies dizziness, Denies frequent falls, Denies loss of vision, Denies memory loss, Denies numbness and Denies weakness Psych Denies depression and Denies memory loss Endo Denies fatigue and Denies palpitations Jose David/Lymph Reports easy bruising and Reports other (anemia) Aller/Immun Denies wheezing Physical Exam Vital Signs: Last Vital Signs Pulse 88 03/14/24 14:48 BP 120/80 03/14/24 14:48 BMI result Body Mass Index 28.0 Const General: cooperative, comfortable, no acute distress, alert, awake and Physically active Nutritional Appearance: overweight Orientation/consciousness: patient oriented x3 Limitations: no limitations HEENT Head: Yes normocephalic and Yes atraumatic Neck Neck: Yes trachea midline, Yes supple and Yes no JVD Resp Effort & Inspection: normal respiratory effort Auscultation: clear to auscultation bilaterally Cardio Jugular venous distension: no JVD Palpation: normal PMI Rate: regular rate Rhythm: regular rhythm Heart sounds: S1 normal heart sound present, S2 normal heart sound present, no click, no gallops, no murmurs and no rubs GI Auscultation: normal bowel sounds Skin General skin exam: no rashes or lesions noted Neuro General: patient oriented x3 and no focal motor deficits Speech: No Abnormal speech present Extrem General: Yes no clubbing, cyanosis or edema Psych Appearance: grossly normal Office Procedures EKG Details: EKG shows normal sinus rhythm with marked sinus arrhythmia with biatrial enlargement. [id number], Complete Assessment & Plan Assessment & Plan (1) Atherosclerosis of abdominal aorta: Code(s): I70.0 - Atherosclerosis of aorta Category: Medical Plan: Extensive atherosclerotic changes noted abdominal aorta in a patient with strong family history of premature coronary artery disease as well as her personal history of elevated LDL cholesterol as well as smoking. Atherosclerotic is generally a systemic process and need to rule out significant obstructive coronary artery disease. Would suggest a exercise myocardial perfusion imaging to further assess for the same. However aggressive treatment for atherosclerosis was discussed with her. Advise low-dose aspirin therapy. Also advise high-intensity statin therapy with rosuvastatin 40 mg daily. Follow-up lipid panel in 2 months time. Complete smoking cessation was advised. Further treatment based on the finding of stress testing. (2) Essential hypertension: Code(s): I10 - Essential (primary) hypertension Category: Medical Plan: Hypertension which is currently well optimized advised to monitor blood pressure at home maintain a log. Goal blood pressure less than 130/84. Continue current atenolol therapy. Low-salt diet was discussed advised to maintain activity level as tolerated. Will obtain echocardiogram to assess LV systolic and diastolic function to evaluate for pulmonary hypertension. Will follow up in the clinic in 2 months time, sooner p.r.n.. Thank you for allowing me to partake in her care Orders: Orders CA stress test Today I70.0 - Atherosclerosis of aorta NM cardiolite stress test 2 Weeks I70.0 - Atherosclerosis of aorta CA echo transthoracic complete Today I10 - Essential (primary) hypertension Lipid Panel 2 Months I70.0 - Atherosclerosis of aorta Medications: New aspirin (Ecotrin Low Strength) 81 mg PO DAILY 30 tabs 5RF I10 - Essential (primary) hypertension rosuvastatin 40 mg PO DAILY 30 tabs 5RF I10 - Essential (primary) hypertension Coding Level of Care Code New Pt Level 4 (54224) Diagnoses Atherosclerosis of abdominal aorta I70.0 Essential hypertension I10 CPT Codes EKG - CPT: [id number], Complete ([id number])
[2024-03-14 14:48] VITALS: BP 120/80; PULSE 88; BMI 28.0
== END 2024-03-14 15:18 | disposition home or self-care (01) ==
PROVIDERS: PCP Internal Medicine; Visit Provider Internal Medicine Cardiovascular Disease
DX: I70.0 Atherosclerosis of aorta (principal); I10 Essential (primary) hypertension
CPT/HCPCS: 93010; 99204

== ENCOUNTER → 2024-03-14 14:39 | Outpatient (BNVA) | payer OTHER, SELFPAY | PROVIDERS: PCP Internal Medicine; Visit Provider Internal Medicine Cardiovascular Disease | DX: I70.0 Atherosclerosis of aorta (principal); I10 Essential (primary) hypertension | CPT/HCPCS: 93005; 99202 ==

== ENCOUNTER 2024-04-26 08:05 | Outpatient (REF) | payer OTHER, SELFPAY ==
[2024-04-26 11:25] LABS: Cholesterol 177 mg/dL (<200); HDL Cholesterol 53 mg/dL (>40); LDL Cholesterol Calculated 95 mg/dL (<100); Triglycerides 145 mg/dL (<150)
== END 2024-04-26 08:06 | disposition home or self-care (01) ==
LOC: HO.HMGCLDS 08:05
PROVIDERS: PCP Internal Medicine; Visit Provider Internal Medicine Cardiovascular Disease
DX: I70.0 Atherosclerosis of aorta (principal)
CPT/HCPCS: 36415; 80061

== ENCOUNTER → 2024-04-30 08:00 | Outpatient (REF) | payer OTHER, SELFPAY ==
--- NOTE | ~2024-04-30 | NM_ITS ---
Lexiscan Myocardial perfusion study Indication: Coronary artery disease Technique: The patient was brought in for a Lexiscan perfusion study on 04/30/2024 and was injected 0.4 mg of Lexiscan intravenously. Within a minute of this injection 30 mCi of sestamibi was given intravenously. Images were obtained using the SPECT gamma camera interlaced with the gating device. Images were obtained in supine position. Resting perfusion study was performed on 05/02/2024. Patient was administered 30 mCi of sestamibi intravenously at rest. Images were then obtained in supine position. Images were processed with the software and compared side to side in short axis, horizontal long axis and vertical long axis views. Total DLP 97mGy-cm. Findings: Raw acquisition reviewed. The stress perfusion study showed diminished tracer uptake along the inferior wall. There is some adjacent subdiaphragmatic tracer uptake. There is improvement with CT attenuation correction and hence could have components of diaphragmatic attenuation artifact. The gated study shows normal LV systolic function with calculated LVEF of 56%. LV cavity is normal in size. The gated study shows normal wall thickening and contraction of segments. Resting study shows diminished tracer uptake along the inferior wall. There is adjacent subdiaphragmatic tracer uptake. Some improvement with CT attenuation correction and hence could have components of diaphragmatic attenuation artifact. Gating at rest reveals normal wall motion with ejection fraction at 53%. The findings are consistent with fixed inferior perfusion defect, probably from diaphragmatic attenuation artifact. No clear reversible defects. NM/NM cardiolite stress test Impression: 1. Myocardial perfusion imaging study shows probably normal myocardial perfusion. Fixed inferior perfusion defect suspected to be from diaphragmatic attenuation artifact. 2. Gated LVEF is 56% during stress and 53% during rest. 3. Transient ischemic dilatation not present. EKG component of the test reported separately.
--- NOTE | 2024-04-30 08:05 | CA_ITS ---
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 The calculated ejection fraction is 65% by biplane method. - There is mild calcification of the aortic valve. - No obvious valvular pathology seen on this study. - Small plaque is seen in the sino tubular ridge. Findings Left Ventricle Normal left ventricular cavity size. There is normal left ventricular wall thickness. The left ventricular systolic function is normal. The calculated ejection fraction is 65% by biplane method. There is no evidence of regional wall motion abnormalities. Diastolic function is normal for age. LV peak GLS -19.2%. Right Ventricle Normal right ventricular cavity size and systolic function. Atria Both atria are normal in size. Aortic Valve There is a normal trileaflet aortic valve. There is mild calcification of the aortic valve. There is no aortic valve stenosis. There is no aortic valve regurgitation. Mitral Valve The mitral valve appears normal. There is no mitral valve regurgitation. There is no mitral valve stenosis. Pulmonic Valve The pulmonic valve is likely normal. Tricuspid Valve Normal tricuspid valve structure. There is trace tricuspid valve regurgitation. There is no evidence of pulmonary hypertension. Great Vessels The asc aorta is normal in size. Small plaque is seen in the sino tubular ridge. Venous The inferior vena cava is mildly dilated and collapses greater than 50% with inspiration. Pericardium/Pleural There is no evidence of pericardial effusion. Prior Study Comparison No prior study available for comparison. Recommendations, Care & Conclusions No obvious valvular pathology seen on this study. Measurements 2D Linear Measurements IVSd: 0.98 0.6-0.9/0.6-1.0 cm LVIDd: 4.18 3.9-5.3/4.2-5.9 cm LVIDd Index: 2.17 2.4-3.2/2.2-3.1 cm/m2 LVIDs: 3.07 2.0-3.6 cm LVPWd: 1.04 0.7-1.1 cm LA Diam: 3.20 2.7-3.8/3.0-4.0 cm LAIDs Index: 1.66 1.5-2.3 cm/m2 LV Mass: 172.27 67-162/88-224 g LV Mass Index: 89.26 43-95/49-115 g/m2 LVOT Diam: 2.10 3.0+(-)1.3 cm 2D Systolic Function EF 4C: 65.70 >55% EF 2C: 65.50 >55% EF BiP: 65.00 >55% Mitral Valve MV Pk E: 1.03 MV PK A: 0.88 MV Decel Time: 246.00 E/A: 1.20 E'Lateral: 11.40 E'Medial: 9.90 E/E' Med: 10.40 E/E' Lat: 9.00 PHT: 72.00 MVA PHT: 3.06 Decel [place]: 4.18 Aortic Valve AoV Pk Kumar: 1.76 AoV Mn Kumar: 1.14 AoV VTI: 0.42 AoV Pk Grad: 12.00 Aov Mn Grad: 6.00 VALERY Cont.VTI: 2.31 LVOT LVOT Pk Kumar: 1.27 LVOT Mn Kumar: 0.87 LVOT VTI: 0.28 LVOT Pk Grad: 6.00 LVOT Mn Grad: 3.00 LVOT Diam: 2.10 LVOT Area: 3.46 Diastolic Function MV Pk E: 1.03 MV Pk A: 0.88 E/A: 1.20 E'Medial: 9.90 E/E' Med: 10.40 E' Laterial: 11.40 E/E' Lat: 9.00 Right Ventricle TAPSE (mm): 23.60 TVS' Kumar: 11.90 Tricuspid Valve TR Pk Kumar: 2.42 TR Pk Grad: 23.00 RA Press: 8.00 RVSP: 31.00 Great Vessels Aorta Sinus of Valsalva: 2.92 2.0-3.[address] [place]: 2.44 1.7-3.4 cm Ao Asc: 2.80 2.1-3.4 cm Updated in Other Vendor System with Status of Final Chema Navarro MD electronically signed on 04/30/2024 12:17:07 PM with status of Final
--- NOTE | 2024-04-30 08:05 | CA_ITS ---
Acquisition Time: 2024-04-30 09:12:19 Total Exercise Time: 00:08:39 Test Indications: htn, i70.0 Medications: see h Protocol: GABE Max HR: 114 BPM 69% of Pred: 164 BPM Max BP: 164/060 mmHG Max Work Load: 10.1 METS Exercise stress test exercise 8 min 39 sec of Gabe protocol achieving 69& MPHR with request to stop due to leg pain, without anginal symptoms, with normotensive response to exercise, with isoalted PACs and PVCs, with nondiagnoisitic EKGs. Test changed to pharmacologicla stress test with Lexiscan. Pharmacological stress test with Lexiscan injeciton while sitting and kicking, without anginal symptoms, without arrhythmias, with normotensive response to injection, with nondiagnsoitic EKGs. Aminophylline 75mg IVp given to reverse Lexiscan. Nuclear images pending. Test reviewed with Dr. Narvaez Referred By: Sanchez Sawant Overread By: Yamila Moreno
== END ==
LOC: HO.CARD 08:00
PROVIDERS: PCP Internal Medicine; Visit Provider Internal Medicine Cardiovascular Disease
DX: I10 Essential (primary) hypertension (principal); I70.0 Atherosclerosis of aorta
CPT/HCPCS: 78452; 93017; 93306; 93356; A9500; J0280; J2785

== ENCOUNTER → 2024-04-30 08:05 | Outpatient (BNV) | payer OTHER, SELFPAY | PROVIDERS: PCP Internal Medicine; Visit Provider Internal Medicine | DX: I25.10 Atherosclerotic heart disease of native coronary artery without angina pectoris (principal) | CPT/HCPCS: 78452; 93016; 93018; 93350; 93356 ==

== ENCOUNTER 2024-05-02 07:52 | Outpatient (REF) | payer OTHER, SELFPAY ==
--- NOTE | ~2024-05-02 | MM_ITS ---
EXAMINATION: MM SCREENING DIGITAL BREAST TOMOSYNTHESIS, BILATERAL CLINICAL INFORMATION: Screening. Asymptomatic. The patient is status post bilateral breast reduction. COMPARISON: Mammography: This study is compared with prior exams dating back to 2017. TECHNIQUE: Digital breast tomosynthesis is performed in both the craniocaudal and mediolateral oblique views along with computer-aided detection (CAD). Synthesized 2D images are generated from the tomosynthesis. FINDINGS: There are scattered areas of fibroglandular density (ACR BI-RADS breast composition Category b). There are no significant masses, abnormal calcifications, or other abnormalities. Post reduction changes with the areas of calcified fat necrosis are present. In the retroareolar region of the left breast, there is a 38 mm area of dense calcified fat necrosis. These findings are benign. MM/MM tomosynthesis screening BI IMPRESSION: No mammographic evidence of malignancy. ASSESSMENT: BI-RADS BI-RADS 2 - Benign Findings RECOMMENDATION: Routine annual mammography screening. 1 year F/U This examination should not preclude the clinical evaluation of a suspicious palpable abnormality. This patient's information was entered into a reminder system with a target due date for their next mammogram.
== END 2024-05-02 07:53 | disposition home or self-care (01) ==
LOC: HO.MAMMO 07:52
PROVIDERS: PCP Internal Medicine; Visit Provider Internal Medicine
DX: Z12.31 Encounter for screening mammogram for malignant neoplasm of breast (principal)
CPT/HCPCS: 77063; 77067

== ENCOUNTER → 2024-05-02 08:00 | Outpatient (BNV) | payer OTHER, SELFPAY | PROVIDERS: PCP Internal Medicine; Visit Provider Radiology Diagnostic Radiology | DX: Z12.31 Encounter for screening mammogram for malignant neoplasm of breast (principal) | CPT/HCPCS: 77063; 77067 ==

== ENCOUNTER 2024-05-03 14:15 | Outpatient (AMB) | payer OTHER, SELFPAY ==
--- NOTE | 2024-05-03 14:18 | A.OFFVIS_ITS ---
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 Required: No Allergies acetaminophen [From VICODIN] Allergy (Unknown, Verified 02/15/24 08:44) ITCHING hydrocodone [From VICODIN] Allergy (Unknown, Verified 02/15/24 08:44) ITCHING oxycodone [From PERCOCET] Allergy (Unknown, Verified 02/15/24 08:44) ITCHING ibuprofen Adverse Reaction (Verified 02/15/24 08:44) Vomiting lamotrigine Adverse Reaction (Verified 02/15/24 08:44) Rash Medication List - Last Reconciled 05/03/24 by Sanchez Sawant MD aripiprazole 2 mg PO BEDTIME aspirin (Ecotrin Low Strength) 81 mg PO DAILY atenolol 25 mg PO DAILY cholecalciferol (vitamin D3) 25 mcg PO DAILY 90 days fluoxetine 20 mg PO BID 90 days lorazepam 1 mg PO BID PRN 30 days polyethylene glycol 3350 (Miralax) 17 grams PO DAILY 90 days rosuvastatin 40 mg PO DAILY trazodone 50 mg PO BEDTIME PRN HPI Comments Details: Rosie comes for follow-up. Her myocardial perfusion imaging was within normal limits suggestive of nonobstructive CAD. Echocardiogram shows normal structure of the heart with some atherosclerotic plaque in the ascending aorta. She denies any new symptoms. Her LDL is improved to 95 although not well optimized. 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 Cognitive needs: No Hearing needs: No Vision needs: Yes Review of Systems Const Denies chills, Denies fatigue, Denies fever(s), Denies frequent falls, Denies weakness, Denies weight gain and Denies weight loss ENT Denies dizziness Card Denies chest pain, Denies leg edema, Denies lightheadedness, Denies palpitations, Denies dyspnea, Denies dyspnea on exertion, Denies orthopnea and Denies other (loss of consciousness) Resp Denies cough, Denies dyspnea and Denies dyspnea on exertion GI Denies hematochezia and Denies change in stool character Musc Denies abnormal gait, Denies muscle weakness, Denies numbness, Denies radiating pain into limb and Denies tingling Neuro Denies Abnormal speech present, Denies abnormal gait, Denies dizziness, Denies frequent falls, Denies numbness, Denies tingling and Denies weakness Endo Denies fatigue and Denies palpitations Physical Exam Vital Signs: Last Vital Signs Pulse 67 05/03/24 14:19 BP 120/80 05/03/24 14:19 BMI result Body Mass Index 28.3 Const General: cooperative, comfortable, no acute distress, alert, awake, Physically active and anxious Nutritional Appearance: overweight Orientation/consciousness: patient oriented x3 Limitations: no limitations Neck Neck: Yes trachea midline, Yes supple and Yes no JVD Resp Effort & Inspection: normal respiratory effort Auscultation: clear to auscultation bilaterally Cardio Jugular venous distension: no JVD Palpation: normal PMI Rate: regular rate Rhythm: regular rhythm Heart sounds: S1 normal heart sound present, S2 normal heart sound present, no click, no gallops, no murmurs and no rubs GI Auscultation: normal bowel sounds Skin General skin exam: no rashes or lesions noted Neuro General: patient oriented x3 and no focal motor deficits Speech: No Abnormal speech present Extrem General: Yes no clubbing, cyanosis or edema Psych Appearance: grossly normal Assessment & Plan Assessment & Plan (1) Atherosclerosis of abdominal aorta: Code(s): I70.0 - Atherosclerosis of aorta Category: Medical Plan: Presence of abdominal aortic atherosclerosis which has suggestive of systemic atherosclerosis. However she does not have any evidence of obstructive coronary artery disease by normal myocardial perfusion imaging with normal LV ejection fraction. Continue aggressive risk factor modification. Complete smoking cessation advised. Continue low-dose aspirin therapy. Advised to participate in more intense lifestyle modification with improved dietary as well as exercise therapy. Follow-up lipid panel in 6 months time. If LDL is not less than 70 mg/dL would suggest to add ezetimibe therapy to her regimen. Continue aggressive blood pressure control. Will follow up in the clinic if need be. Thank you for allowing me to partake in her care Coding Level of Care Code Est Pt Level 3 (03920) Diagnoses Atherosclerosis of abdominal aorta I70.0
[2024-05-03 14:19] VITALS: BP 120/80; PULSE 67; BMI 28.3
== END 2024-05-03 14:40 | disposition home or self-care (01) ==
PROVIDERS: PCP Internal Medicine; Visit Provider Internal Medicine Cardiovascular Disease
DX: I70.0 Atherosclerosis of aorta (principal)
CPT/HCPCS: 99213

== ENCOUNTER → 2024-05-03 14:15 | Outpatient (BNVA) | payer OTHER, SELFPAY | PROVIDERS: PCP Internal Medicine; Visit Provider Internal Medicine Cardiovascular Disease | DX: I70.0 Atherosclerosis of aorta (principal) | CPT/HCPCS: 99212 ==

== ENCOUNTER 2024-05-23 09:30 | Outpatient (REF) | payer OTHER, SELFPAY ==
[2024-05-23 11:09] LABS: MANUAL DIFF FLAG NO
[2024-05-23 11:14] LABS: Basophils Percent Auto 0.2 % (0-2); Eosinophils Absolute Auto 0.1 X10*3/uL (0.0-0.4); Eosinophils Percent Auto 1.4 % (0-4); Hematocrit 46.1 % (37.0-47.0); Hemoglobin 15.5 g/dl (12.0-16.0); Imm Gran Abs Auto 0.03 X10*3/uL (0.00-0.03); Imm Gran Pct Auto 0.3 % (0.0-0.4); Lymphocytes Absolute Auto 2.7 X10*3/uL (1.2-4.9); Lymphocytes Percent Auto 31.3 % (20-40); Mean Corpuscular HGB Conc 33.6 g/dl (31.0-35.0); Mean Corpuscular Hemoglobin 31.1 pg (27.0-33.0); Mean Corpuscular Volume 92.4 fL (80.0-98.0); Mean Platelet Volume 10.1 fL (9.4-12.3); Monocytes Absolute Auto 0.5 X10*3/uL (0.1-1.2); Monocytes Percent Auto 5.8 % (2-11); Neutrophils Absolute Auto 5.3 x10*3/uL (2.0-8.3); Platelet Count 195 X10*3/uL (160-400); Red Blood Count 4.99 X10*6/uL (4.20-5.50); Red Cell Distribution Width 12.8 % (11.0-16.0); White Blood Count 8.7 X10*3/uL (4.8-10.8)
[2024-05-23 11:30] LABS: Estimated Average Glucose 126 mg/dL
[2024-05-23 12:34] LABS: Alanine Aminotransferase 13 U/L (0-31); Albumin Level 4.5 g/dL (3.5-5.0); Alkaline Phosphatase 66 U/L (39-117); Anion Gap 12 (12-20); Aspartate Amino Transferase 13 U/L (5-31); Bilirubin Total 0.7 mg/dL (0.0-1.0); Blood Urea Nitrogen 11 mg/dL (9-16); Calcium 9.7 mg/dL (8.4-10.2); Carbon Dioxide 26 mmol/L (22-29); Chloride 107 mmol/L (96-108); Estimated Glomerular Filt Rate > 60; Glucose Fasting 89 mg/dL (60-99); Potassium 4.2 mmol/L (3.3-5.1); Sodium 141 mmol/L (135-145); Total Protein 7.2 g/dL (6.5-8.0)
[2024-05-23 12:52] LABS: TSH reflex Free T4 1.23 uIU/mL (0.32-4.0)
[2024-05-29 06:18] LABS: Vitamin D 25-OH, D2 <4 ng/mL; Vitamin D 25-OH, D3 29 ng/mL; Vitamin D 25-OH, Total 29 ng/mL (30-100)
== END 2024-05-23 09:31 | disposition home or self-care (01) ==
LOC: HO.HMGCLDS 09:30
PROVIDERS: PCP Internal Medicine; Visit Provider Internal Medicine
DX: I70.0 Atherosclerosis of aorta (principal); K76.0 Fatty (change of) liver, not elsewhere classified; E78.9 Disorder of lipoprotein metabolism, unspecified; E55.9 Vitamin D deficiency, unspecified; R73.01 Impaired fasting glucose; F31.32 Bipolar disorder, current episode depressed, moderate; I10 Essential (primary) hypertension
CPT/HCPCS: 36415; 80053; 82306; 83036; 84443; 85025

== ENCOUNTER 2024-06-01 14:10 | Outpatient (AMB) | payer OTHER, SELFPAY ==
[2024-06-01 14:10] VITALS: BP 124/66; PULSE 80; O2SAT 98; BMI 27.7
--- NOTE | 2024-06-01 14:10 | A.OFFPC_ITS ---
Vital Signs 06/01/24 14:10 Height 5 ft 7 in Weight 177 lb BMI 27.7 BP 124/66 Blood Pressure Location Rt brachial Position Sitting Pulse 80 Pulse Source Pulse Oximeter Pulse Oximetry (%) 98 Oxygen Delivery Method Room Air Intake Visit Reasons: Annual PE Allergies acetaminophen [From VICODIN] Allergy (Unknown, Verified 06/01/24 14:12) ITCHING hydrocodone [From VICODIN] Allergy (Unknown, Verified 06/01/24 14:12) ITCHING oxycodone [From PERCOCET] Allergy (Unknown, Verified 06/01/24 14:12) ITCHING ibuprofen Adverse Reaction (Verified 06/01/24 14:12) Vomiting lamotrigine Adverse Reaction (Verified 06/01/24 14:12) Rash Medication List - Last Reconciled 06/01/24 by Fernanda Huerta MD aripiprazole 2 mg PO BEDTIME aspirin (Ecotrin Low Strength) 81 mg PO DAILY atenolol 25 mg PO DAILY cholecalciferol (vitamin D3) 25 mcg PO DAILY 90 days fluoxetine 20 mg PO BID 90 days lorazepam 1 mg PO BID PRN 30 days polyethylene glycol 3350 (Miralax) 17 grams PO DAILY 90 days rosuvastatin 40 mg PO DAILY trazodone 50 mg PO BEDTIME PRN Tobacco use date assessed: 06/01/24 Dental Screening Dental Screen Date: 02/15/24 HPI Annual PE HPI Details Patient is 53-year-old female came in today for physical exam Patient is in her usual state of health Labs done recently reviewed Mammogram was April of this year Patient have a history of hysterectomy secondary to heavy bleeding in 2012 She does not want to have colonoscopy. Medication list reviewed appropriate refills provided Psychiatric medications through Psychiatry now Follow-up 4 months [facility] Medical History Depression Anxiety Essential hypertension Family History Brother Substance use disorder Mental health disorder Sister Substance use disorder Mental health disorder Father Mental health disorder CAD (coronary artery disease) Mother Afib Social History Housing: House Patient Tobacco Use Status: Current someday Tobacco user Tobacco use type: Cigarette Cigarettes Per Day: 5 e-Cigarette/Vaping Use: Never Used service: No Current occupational status: disabled 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 Cognitive needs: No Hearing needs: No Vision needs: Yes Questionnaire Thrive Questionnaire Date Thrive assessed: 06/01/24 I am a: Patient What is your living situation today?: I have a steady place to live Within the past 12 months, did the food you bought not last and you didn't have the money to get more?: Sometimes True Within the past 12 months, did you worry whether your food would run out before you got money to buy more?: Sometimes True Do you have trouble paying for medicines?: No Do you have trouble getting transportation to medical appointments?: No Do you have trouble paying your heating and electricity bill?: Yes Do you have trouble taking care of your child, family member or friend?: No Do you have trouble with day-to-day activities such as bathing, preparing meals, shopping, managing finances, etc.?: No Are you currently unemployed and looking for a job?: No Are you interested in more education?: No Please select the resources that you would like help with: None Currently or been in a relationship where the following occur: No concerns reported THRIVE Score: 3 AUDIT C Alcohol Use Questionnaire (AUDIT-C) 1. How often do you have a drink containing alcohol?: Never 3. How often do you have six or more drinks on one occasion?: Never Total Score: 0 JAVY-7 AMB Questionnaire JAVY-7 Date JAVY - 7 assessed: 06/01/24 Feeling nervous, anxious, or on edge: 1 = Several days Not being able to stop or control worryin = Several days Worrying too much about different things: 1 = Several days Trouble relaxin = Several days Being so restless that it is hard to sit still: 1 = Several days Becoming easily annoyed or irritable: 3 = Nearly every day Feeling afraid as if something awful might happen: 1 = Several days Total JAVY-7 score (0-4 normal; 5-9 mild; 10-14 moderate; 15-21 severe): 9 Source: Developed by Drs. Peter Alvarado, Dilma Victoria, Jerrell Padilla and colleagues, with an educational stephanie from [employer]. Review of Systems Const Denies chills, Denies fever(s) and Denies headache(s) Eyes Denies blurry vision ENT Denies headache(s), Denies nasal discharge, Denies nasal obstruction, Denies odynophagia and Denies sinus pain Card Denies chest pain at rest and Denies chest pain with activity Resp Denies cough and Denies hemoptysis GI Denies diarrhea, Denies odynophagia, Denies vomiting and Denies hematemesis Reports as per HPI Musc Denies abnormal gait Skin/Breast Reports as per HPI Neuro Denies Neuro-related abnormal movements, Denies Abnormal speech present, Denies abnormal gait, Denies headache(s) and Denies Sensory deficit (Neuro) Psych Denies mood swings and Denies paranoia Endo Reports as per HPI Jose David/Lymph Reports as per HPI Aller/Immun Reports as per HPI Physical exam (Primary Care) Vital Signs: Last Vital Signs Pulse 80 06/01/24 14:10 BP 124/66 06/01/24 14:10 Pulse Ox 98 06/01/24 14:10 Oxygen Delivery Method Room Air 06/01/24 14:10 BMI result Body Mass Index 27.7 Tobacco/Smoking Status: Tobacco use Status Tobacco use date assessed 06/01/24 06/01/24 14:15 Patient Tobacco Use Status Current someday Tobacco 06/01/24 14:15 Tobacco use type Cigarette 06/01/24 14:15 e-Cigarette/Vaping Use Never Used 06/01/24 14:15 Thrive Assessment: Date of Thrive Assessment Date Thrive assessed 06/01/24 06/01/24 14:15 Currently or been in a relationship where the following occur: No concerns reported Const General: cooperative, comfortable and no acute distress Orientation/consciousness: patient oriented x3 HENMT Head: Yes normocephalic and Yes atraumatic Eyes General: appearance normal, both eyes and all related structures Pupils: Equal, round and reactive pupils present EOM: EOMs intact bilaterally Neck Neck: Yes supple and No lymphadenopathy Thyroid: Thyroid normal Lymphatic: no lymphadenopathy noted Chest Breast/axilla palpation: normal palpation of the breasts Resp Effort & Inspection: normal respiratory effort and able to speak in complete sentences Auscultation: clear to auscultation bilaterally Cardio Heart sounds: S1 normal heart sound present and S2 normal heart sound present GI Palpation (GI): Soft to palpation and nontender Auscultation: normal bowel sounds General: Yes no CVA tenderness Back/Spine/Pelvis Back: no CVA tenderness Skin General skin exam: elasticity normal and turgor normal Neuro General: patient oriented x3 and gait normal Cranial nerves: Yes Equal, round and reactive pupils present Speech: No Abnormal speech present Sensory Exam: No Sensory deficit (Neuro) Coordination: tandem gait normal and Romberg test negative Extrem General: Yes normal exam except as noted and No edema Assessment and Plan Assessment & Plan (1) Encounter for general adult medical examination with abnormal findings: Code(s): Z00.01 - Encounter for general adult medical examination with abnormal findings (2) Essential hypertension: Code(s): I10 - Essential (primary) hypertension (3) Constipation by delayed colonic transit: Code(s): K59.01 - Slow transit constipation (4) PTSD (post-traumatic stress disorder): Code(s): F43.10 - Post-traumatic stress disorder, unspecified (5) Lipid disorder: Code(s): E78.9 - Disorder of lipoprotein metabolism, unspecified (6) Vitamin D deficiency: Code(s): E55.9 - Vitamin D deficiency, unspecified (7) Impaired fasting blood sugar: Code(s): R73.01 - Impaired fasting glucose (8) Auditory hallucinations: Code(s): R44.0 - Auditory hallucinations (9) Bipolar disorder current episode depressed: Code(s): F31.30 - Bipolar disorder, current episode depressed, mild or moderate severity, unspecified Qualifiers: Current episode severity: moderate Qualified Code(s): F31.32 - Bipolar disorder, current episode depressed, moderate (10) Panic anxiety syndrome: Code(s): F41.0 - Panic disorder [episodic paroxysmal anxiety] (11) Visual hallucinations: Code(s): R44.1 - Visual hallucinations Plan Patient is 53-year-old female came in today for physical exam Patient is in her usual state of health Labs done recently reviewed Mammogram was April of this year Patient have a history of hysterectomy secondary to heavy bleeding in 2012 She does not want to have colonoscopy. Medication list reviewed appropriate refills provided Psychiatric medications through Psychiatry now Follow-up 4 months Medications: Refilled atenolol 25 mg PO DAILY 90 tabs 0RF Blood pressure polyethylene glycol 3350 (Miralax) 17 grams PO DAILY 1,530 grams 0RF 90 days cholecalciferol (vitamin D3) 25 mcg PO DAILY 90 caps 0RF 90 days Coding Level of Care Code Est Pt Level 3 (81348) Est Pt Prev Care 40-64y(79334) Diagnoses Encounter for general adult medical examination with abnormal findings Z00.01 Essential hypertension I10 Constipation by delayed colonic transit K59.01 PTSD (post-traumatic stress disorder) F43.10 Lipid disorder E78.9 Vitamin D deficiency E55.9 Impaired fasting blood sugar R73.01 Auditory hallucinations R44.0 Bipolar affective disorder, currently depressed, moderate F31.32 Current episode severity: moderate Panic anxiety syndrome F41.0 Visual hallucinations R44.1
== END 2024-06-01 15:03 | disposition home or self-care (01) ==
PROVIDERS: PCP Internal Medicine; Visit Provider Internal Medicine
DX: Z00.00 Encounter for general adult medical examination without abnormal findings (principal); F31.32 Bipolar disorder, current episode depressed, moderate; I10 Essential (primary) hypertension; K59.01 Slow transit constipation; F43.10 Post-traumatic stress disorder, unspecified; E55.9 Vitamin D deficiency, unspecified; E78.9 Disorder of lipoprotein metabolism, unspecified; R73.01 Impaired fasting glucose; R44.0 Auditory hallucinations; F41.0 Panic disorder [episodic paroxysmal anxiety]; R44.1 Visual hallucinations
CPT/HCPCS: 99396

== ENCOUNTER 2024-10-30 14:59 | Outpatient (AMB) | payer OTHER, SELFPAY ==
[2024-10-30 15:02] VITALS: BP 116/66; PULSE 72; RESP 18; O2SAT 97; BMI 28.3
--- NOTE | 2024-10-30 15:02 | A.OFFPC_ITS ---
Vital Signs 10/30/24 15:02 Height 5 ft 7 in Weight 181 lb BMI 28.3 BP 116/66 Blood Pressure Location Rt brachial Position Sitting Respiration 18 Pulse 72 Pulse Source Pulse Oximeter Pulse Oximetry (%) 97 Oxygen Delivery Method Room Air Intake Visit Reasons: 4 month Allergies acetaminophen [From VICODIN] Allergy (Unknown, Verified 10/30/24 15:03) ITCHING hydrocodone [From VICODIN] Allergy (Unknown, Verified 10/30/24 15:03) ITCHING oxycodone [From PERCOCET] Allergy (Unknown, Verified 10/30/24 15:03) ITCHING ibuprofen Adverse Reaction (Verified 10/30/24 15:03) Vomiting lamotrigine Adverse Reaction (Verified 10/30/24 15:03) Rash Medication List - Last Reconciled 10/30/24 by Fernanda Huerta MD aripiprazole 2 mg PO BEDTIME aspirin (Ecotrin Low Strength) 81 mg PO DAILY atenolol 25 mg PO DAILY cholecalciferol (vitamin D3) 25 mcg PO DAILY 90 days fluoxetine 20 mg PO BID 90 days lorazepam 1 mg PO BID PRN 30 days polyethylene glycol 3350 (Miralax) 17 grams PO DAILY 90 days rosuvastatin 40 mg PO DAILY trazodone 50 mg PO BEDTIME PRN Tobacco use date assessed: 10/30/24 Dental Screening Dental Screen Date: 10/30/24 Did you have a dental visit in the last 12 months?: No Did you have a dental problem in the last 6 months where you did not have access to dental care?: No Was dental information given to patient?: Patient has dentist HPI 4 month HPI Details The patient is a 54-year-old female presenting with prescription refill and regular follow-up - Hyperlipidemia management requires meredith oing rosuvastatin therapy . - Hypertension is controlled with atenol ol, with adherence . - Depression and anxiety are actively ma naged with psychotherapy and psychiatrist-supervised medication, indicating stability but recent exacerbation following personal emotional distress. - Insomnia is addressed under psychiatri c care with ongoing medication to stabilize sleep patterns. - overweight, patient is trying to lose weight Problem List - Hyperlipidemia - Hypertension - Depression - Anxiety Disorder - Insomnia - overweight - smoking Patient Instructions - Complete the required blood tests - Continue current medications: rosuvast atin, atenolol, and vitamin D3 as coordinated with the pharmacy. - Maintain weekly Psycho therapy session s through Zoom. - Schedule a follow-up appointment in fo ur months. - Consider reducing cigarette consumptio n from six per day as part of health im provements. Review of Systems - Psychological: Reports feeling heartbr oken following a recent relationship ending; receives support from family, notably her son. - General: No fever no chills - Neurological: No headaches no dizziness - Ear nose throat: No sore throat no hearing difficulty no ear pain - Cardiovascular: No syncope, no chest pain, no palpitations - Gastrointestinal: No nausea vomiting or diarrhea - Endocrine: No polyuria polydipsia no heat intolerance - Genitourinary: No dysuria , no blood in urine Physical Exam - General: No acute distress - HEENT: No acute findings - Neck: Supple - Respiratory system: Able to talk in f ull sentences, no audible wheeze - cardiovascular: S1-S2 regular in rat e and rhythm - Gastrointestinal: No pain - Extremities: No new findings - [employer]: Alert awake oriented x3 motor se nsory intact - Skin: Normal turgor PFSH Medical History Depression Anxiety Essential hypertension Family History Brother Substance use disorder Mental health disorder Sister Substance use disorder Mental health disorder Father Mental health disorder CAD (coronary artery disease) Mother Afib Social History Housing: House Patient Tobacco Use Status: Current someday Tobacco user Tobacco use type: Cigarette Cigarettes Per Day: 5 e-Cigarette/Vaping Use: Never Used service: No Current occupational status: disabled 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 1. Little interest or pleasure in doing things: several days 2. Feeling down, depressed, or hopeless: several days 3. Trouble falling or staying asleep, or sleeping too much: several days 4. Feeling tired or having little energy: several days 5. Poor appetite or overeating: several days 6. Feeling bad about yourself - or that you are a failure or have let yourself or your family down: several days 7. Trouble concentrating on things, such as reading the newspaper or watching television: several days 8. Moving or speaking so slowly that other people could have noticed. Or the opposite - being so fidgety or restless that you have been moving around a lot more than usual: several days 9. Thoughts that you would be better off or of hurting yourself in some way: not at all Total score: 8 Depression Screening Interpretation: Negative Depression Screening Done: Yes 32720 - PHQ-9 Billing: Yes Source: Developed by Drs. Peter Alvarado, Dilma Victoria, Jerrell Padilla and colleagues, with an educational stephanie from [employer]. Thrive Questionnaire Date Thrive assessed: 10/23/24 I am a: Patient What is your living situation today?: I have a steady place to live Within the past 12 months, did the food you bought not last and you didn't have the money to get more?: Sometimes True Within the past 12 months, did you worry whether your food would run out before you got money to buy more?: Sometimes True Do you have trouble paying for medicines?: No Do you have trouble getting transportation to medical appointments?: No Do you have trouble paying your heating and electricity bill?: No Do you have trouble taking care of your child, family member or friend?: No Do you have trouble with day-to-day activities such as bathing, preparing meals, shopping, managing finances, etc.?: I choose not to answer this question Are you currently unemployed and looking for a job?: No Are you interested in more education?: No Please select the resources that you would like help with: None Currently or been in a relationship where the following occur: No concerns reported THRIVE Score: 2 AUDIT C Alcohol Use Questionnaire (AUDIT-C) 1. How often do you have a drink containing alcohol?: Monthly or less 2. How many drinks containing alcohol do you have on a typical day when you are drinking?: 1 or 2 3. How often do you have six or more drinks on one occasion?: Never Total Score: 1 Score Reviewed/Action Taken: Yes JAVY-7 AMB Questionnaire JAVY-7 Date JAVY - 7 assessed: 10/30/24 Feeling nervous, anxious, or on edge: 3 = Nearly every day Not being able to stop or control worryin = More than half the days Worrying too much about different things: 3 = Nearly every day Trouble relaxin = Several days Being so restless that it is hard to sit still: 1 = Several days Becoming easily annoyed or irritable: 2 = More than half the days Feeling afraid as if something awful might happen: 2 = More than half the days Total JAVY-7 score (0-4 normal; 5-9 mild; 10-14 moderate; 15-21 severe): 14 Source: Developed by Drs. Peter Alvarado, Dilma Victoria, Jerrell Paidlla and colleagues, with an educational stephanie from [employer]. JAVY-7 Assessment Billing JAVY-7 Assessment Tool: JAVY-7 Assessment 60535 Physical exam (Primary Care) Vital Signs: Last Vital Signs Pulse 72 10/30/24 15:02 Resp 18 10/30/24 15:02 BP 116/66 10/30/24 15:02 Pulse Ox 97 10/30/24 15:02 Oxygen Delivery Method Room Air 10/30/24 15:02 BMI result Body Mass Index 28.3 Tobacco/Smoking Status: Tobacco use Status Tobacco use date assessed 10/30/24 10/30/24 15:07 Patient Tobacco Use Status Current someday Tobacco 10/30/24 15:07 Tobacco use type Cigarette 10/30/24 15:07 e-Cigarette/Vaping Use Never Used 10/30/24 15:07 Are you ready to quit: Yes Tobacco cessation counseling provided: Yes Relapse Prevention: discussed the importance of a supportive environment CPT code: 10125 - 4-10 Minutes PHQ-9: PHQ-9 Score PHQ-9: Total score 8 10/30/24 15:07 Depression Screening Interpretation: Negative Thrive Assessment: Date of Thrive Assessment Date Thrive assessed 10/23/24 10/30/24 15:07 Currently or been in a relationship where the following occur: No concerns reported Coding Level of Care Code Est Pt Level 4 (86892) Complex EM visit Add On G2211 Diagnoses Essential hypertension I10 Panic anxiety syndrome F41.0 Severe major depression F32.2 Impaired fasting blood sugar R73.01 Vitamin D deficiency E55.9 Lipid disorder E78.9 PTSD (post-traumatic stress disorder) F43.10 Additional Codes PHQ-9 - 90401 - PHQ-9 Billing: Yes ([id number]) JAVY-7 Assessment Billing - JAVY-7 Assessment Tool: JAVY-7 Assessment 38627 ([id number]) Vital Signs *Quality* - CPT code: 76146 - 4-10 Minutes ([id number]) Assessment & Plan Assessment & Plan (1) Essential hypertension: Code(s): I10 - Essential (primary) hypertension Category: Medical (2) Panic anxiety syndrome: Code(s): F41.0 - Panic disorder [episodic paroxysmal anxiety] Category: Medical (3) Severe major depression: Code(s): F32.2 - Major depressive disorder, single episode, severe without psychotic features Category: Medical (4) Impaired fasting blood sugar: Code(s): R73.01 - Impaired fasting glucose Category: Medical (5) Vitamin D deficiency: Code(s): E55.9 - Vitamin D deficiency, unspecified Category: Medical (6) Lipid disorder: Code(s): E78.9 - Disorder of lipoprotein metabolism, unspecified Category: Medical (7) PTSD (post-traumatic stress disorder): Code(s): F43.10 - Post-traumatic stress disorder, unspecified Category: Medical Plan The patient is a 54-year-old female presenting with prescription refill and regular follow-up - Hyperlipidemia management requires ongoing rosuvastatin therapy . - Hypertension is controlled with atenolol, with adherence . - Depression and anxiety are actively managed with psychotherapy and psychiatrist-supervised medication, indicating stability but recent exacerbation following personal emotional distress. - Insomnia is addressed under psychiatric care with ongoing medication to stabilize sleep patterns. - overweight, patient is trying to lose weight Problem List - Hyperlipidemia - Hypertension - Depression - Anxiety Disorder - Insomnia - overweight - smoking Patient Instructions - Complete the required blood tests - Continue current medications: rosuvastatin, atenolol, and vitamin D3 as coordinated with the pharmacy. - Maintain weekly Psycho therapy sessions through Zoom. - Schedule a follow-up appointment in four months. - Consider reducing cigarette consumption from six per day as part of health improvements. Orders: Orders Comprehensive Met. Panel Today E55.9 - Vitamin D deficiency, unspecified, E78.9 - Disorder of lipoprotein metabolism, unspecified, F32.2 - Major depressive disorder, single episode, severe without psychotic features, F41.0 - Panic disorder [episodic paroxysmal anxiety], F43.10 - Post-traumatic stress disorder, unspecified, I10 - Essential (primary) hypertension, R73.01 - Impaired fasting glucose Complete Blood Count Auto Diff Today E55.9 - Vitamin D deficiency, unspecified, E78.9 - Disorder of lipoprotein metabolism, unspecified, F32.2 - Major depressive disorder, single episode, severe without psychotic features, F41.0 - Panic disorder [episodic paroxysmal anxiety], F43.10 - Post-traumatic stress disorder, unspecified, I10 - Essential (primary) hypertension, R73.01 - Impaired fasting glucose LDL Cholesterol Direct Today E55.9 - Vitamin D deficiency, unspecified, E78.9 - Disorder of lipoprotein metabolism, unspecified, F32.2 - Major depressive disorder, single episode, severe without psychotic features, F41.0 - Panic disor marilu [episodic paroxysmal anxiety], F43.10 - Post-traumatic stress disorder, unspecified, I10 - Essential (primary) hypertension, R73.01 - Impaired fasting glucose Medications: Refilled atenolol 25 mg PO DAILY 90 tabs 1RF Blood pressure rosuvastatin 40 mg PO DAILY 90 tabs 1RF I10 - Essential (primary) hypertension cholecalciferol (vitamin D3) 25 mcg PO DAILY 90 days 90 caps 0RF rosuvastatin 40 mg PO DAILY 90 tabs 1RF I10 - Essential (primary) hypertension atenolol 25 mg PO DAILY 90 tabs 1RF Blood pressure cholecalciferol (vitamin D3) 25 mcg PO DAILY 90 caps 0RF 90 days
== END 2024-10-30 15:30 | disposition home or self-care (01) ==
PROVIDERS: PCP Internal Medicine; Visit Provider Internal Medicine
DX: I10 Essential (primary) hypertension (principal); F41.0 Panic disorder [episodic paroxysmal anxiety]; F32.2 Major depressive disorder, single episode, severe without psychotic features; R73.01 Impaired fasting glucose; E55.9 Vitamin D deficiency, unspecified; E78.9 Disorder of lipoprotein metabolism, unspecified; F43.10 Post-traumatic stress disorder, unspecified

== ENCOUNTER → 2024-10-30 14:59 | Outpatient (BNVA) | payer OTHER, SELFPAY | PROVIDERS: PCP Internal Medicine; Visit Provider Internal Medicine | DX: I10 Essential (primary) hypertension (principal); F41.9 Anxiety disorder, unspecified; F32.2 Major depressive disorder, single episode, severe without psychotic features; R73.01 Impaired fasting glucose; E55.9 Vitamin D deficiency, unspecified; E78.9 Disorder of lipoprotein metabolism, unspecified; F43.10 Post-traumatic stress disorder, unspecified | CPT/HCPCS: 96127; 99212 ==

== ENCOUNTER 2024-11-02 11:56 | Outpatient (REF) | payer OTHER, SELFPAY ==
[2024-11-02 13:30] LABS: MANUAL DIFF FLAG NO
[2024-11-02 13:52] LABS: Basophils Absolute Auto 0.1 X10*3/uL (0.0-0.2); Basophils Percent Auto 0.6 % (0-2); Eosinophils Absolute Auto 0.1 X10*3/uL (0.0-0.4); Hematocrit 45.9 % (37.0-47.0); Hemoglobin 15.2 g/dl (12.0-16.0); Imm Gran Abs Auto 0.04 X10*3/uL (0.00-0.03); Imm Gran Pct Auto 0.4 % (0.0-0.4); Lymphocytes Absolute Auto 2.9 X10*3/uL (1.2-4.9); Lymphocytes Percent Auto 29.5 % (20-40); Mean Corpuscular HGB Conc 33.1 g/dl (31.0-35.0); Mean Corpuscular Volume 93.7 fL (80.0-98.0); Mean Platelet Volume 10.3 fL (9.4-12.3); Monocytes Absolute Auto 0.5 X10*3/uL (0.1-1.2); Monocytes Percent Auto 4.8 % (2-11); Neutrophils Absolute Auto 6.2 x10*3/uL (2.0-8.3); Neutrophils Percent Auto 63.7 % (45-73); Platelet Count 221 X10*3/uL (160-400); Red Cell Distribution Width 12.7 % (11.0-16.0); White Blood Count 9.7 X10*3/uL (4.8-10.8)
[2024-11-02 14:15] LABS: Alanine Aminotransferase 15 U/L (0-31); Albumin Level 4.5 g/dL (3.5-5.0); Alkaline Phosphatase 57 U/L (39-117); Anion Gap 11 (12-20); Aspartate Amino Transferase 18 U/L (5-31); Bilirubin Total 0.4 mg/dL (0.0-1.0); Blood Urea Nitrogen 13 mg/dL (9-16); Calcium 9.5 mg/dL (8.4-10.2); Carbon Dioxide 24 mmol/L (22-29); Chloride 109 mmol/L (96-108); Estimated Glomerular Filt Rate > 60; Glucose Random 89 mg/dL (60-115); Potassium 4.3 mmol/L (3.3-5.1); Sodium 140 mmol/L (135-145); Total Protein 7.3 g/dL (6.5-8.0)
[2024-11-04 05:58] LABS: LDL Cholesterol Direct 84 mg/dL (<100)
== END 2024-11-02 11:57 | disposition home or self-care (01) ==
LOC: HO.HMGCLDS 11:56
PROVIDERS: PCP Internal Medicine; Visit Provider Internal Medicine
DX: I10 Essential (primary) hypertension (principal); F41.0 Panic disorder [episodic paroxysmal anxiety]; F32.2 Major depressive disorder, single episode, severe without psychotic features; R73.01 Impaired fasting glucose; E55.9 Vitamin D deficiency, unspecified; E78.9 Disorder of lipoprotein metabolism, unspecified; F43.10 Post-traumatic stress disorder, unspecified
CPT/HCPCS: 36415; 80053; 83721; 85025

== ENCOUNTER 2025-03-05 12:39 | Outpatient (AMB) | payer OTHER, SELFPAY ==
[2025-03-05 12:42] VITALS: BP 144/82; PULSE 81; TEMP 37.2; O2SAT 96; BMI 29.1
--- NOTE | 2025-03-05 12:42 | A.OFFPC_ITS ---
Vital Signs 03/05/25 12:42 Height 5 ft 7 in Weight 186 lb BMI 29.1 BP 144/82 H Blood Pressure Location Rt brachial Position Sitting Pulse 81 Pulse Source Pulse Oximeter Temp 98.9 F Temp Source Oral Pulse Oximetry (%) 96 Oxygen Delivery Method Room Air Intake Visit Reasons: 4 month Allergies acetaminophen [From VICODIN] Allergy (Unknown, Verified 03/05/25 12:45) ITCHING hydrocodone [From VICODIN] Allergy (Unknown, Verified 03/05/25 12:45) ITCHING oxycodone [From PERCOCET] Allergy (Unknown, Verified 03/05/25 12:45) ITCHING ibuprofen Adverse Reaction (Verified 03/05/25 12:45) Vomiting lamotrigine Adverse Reaction (Verified 03/05/25 12:45) Rash Medication List - Last Reconciled 03/05/25 by Fernanda Huerta MD aripiprazole 2 mg PO BEDTIME aspirin (Ecotrin Low Strength) 81 mg PO DAILY atenolol 25 mg PO DAILY cholecalciferol (vitamin D3) 25 mcg PO DAILY 90 days lorazepam 1 mg PO BID PRN 30 days polyethylene glycol 3350 (Miralax) 17 grams PO DAILY 90 days rosuvastatin 40 mg PO DAILY trazodone 50 mg PO BEDTIME PRN Tobacco use date assessed: 03/05/25 Dental Screening Dental Screen Date: 03/05/25 Did you have a dental visit in the last 12 months?: Yes Did you have a dental problem in the last 6 months where you did not have access to dental care?: No Was dental information given to patient?: Patient has dentist HPI 4 month HPI Details History - The patient is a 55-year-old female pr esenting with a request for medication refill and evaluation of a right breast cyst. - The patient reported a need for a refi ll of Vitamin D. - patient suffers from bipolar disorder, panic anxiety syndrome, PTSD, and severe depression, she confirmed she had already obtained her psychiatric medication refills. - The patient noted a cyst on the right breast, describing it as swollen and painful, with progressively increasing size and discomfort. - She indicated experiencing similar cys ts in the past, notably an ovarian cyst before her pregnancies. - The high blood pressure reading noted today was attributed by the patient to rushing to her medication warp picker. - At home blood pressure readings usuall y average 120. - also have history of fatty liver Medical History: - Essential Hypertension - Hyperlipidemia - Anxiety Disorder - Major Depressive Disorder - inflamed cyst right breast - fatty liver - slight anemia Medications: - Atenolol 25 mg for Essential Hypertens ion - Rosuvastatin 40 mg for Hyperlipidemia - Aripiprazole for Anxiety Disorder thro [facility] psychiatrist - Lorazepam twice daily for Anxiety Diso rder through psychiatrist - Trazodone as needed for sleep disturba nces through psychiatrist Social History: - Parents are visiting from [facility] - Has gained some weight due to changes in dietary habits while parents are visiting - No longer seeing a counselor due to pe rsonal conflicts Diagnostic Results: - Labs: Patient is scheduled for fasting blood tests. Problem List - Essential Hypertension - Hyperlipidemia - Right Breast Cyst - Anxiety Disorder - Major Depressive Disorder - fatty liver - overweight - slight anemia Patient Instructions - Take prescribed antibiotics for the ri ght breast cyst to reduce inflammation. - Schedule and complete fasting blood te sts before consuming breakfast. - Continue current medications as prescr ibed. - Follow up with scheduled physical exam in June. - Monitor blood pressure regularly at [facility] and maintain a record of readings. Review of Systems - General: No fever no chills - Neurological: No headaches no dizziness - Ear nose throat: No sore throat no hearing difficulty no ear pain - Cardiovascular: No syncope, no chest pain, no palpitations - Gastrointestinal: No nausea vomiting or diarrhea - Endocrine: No polyuria polydipsia no heat intolerance - Genitourinary: No dysuria , no blood in urine Physical Exam General: No acute distress HEENT: No acute findings Neck: Supple Respiratory system: Able to talk in full sentences, no audible wheeze Cardiovascular: S1-S2 regular in rate and rhythm, blood pressure 144/82 Breast - inflamed cyst right breast 11 o'clock position above nipple Gastrointestinal: No pain Extremities: No new findings [employer]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 awake oriented x3 motor sensory intact Skin: Normal turgor, tattoo present [facility] Medical History Depression Anxiety Essential hypertension Family History Brother Substance use disorder Mental health disorder Sister Substance use disorder Mental health disorder Father Mental health disorder CAD (coronary artery disease) Mother Afib Social History Housing: House Patient Tobacco Use Status: Current someday Tobacco user Tobacco use type: Cigarette Cigarettes Per Day: 5 e-Cigarette/Vaping Use: Never Used service: No Current occupational status: disabled 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 1. Little interest or pleasure in doing things: several days 2. Feeling down, depressed, or hopeless: several days 3. Trouble falling or staying asleep, or sleeping too much: several days 4. Feeling tired or having little energy: several days 5. Poor appetite or overeating: several days 6. Feeling bad about yourself - or that you are a failure or have let yourself or your family down: several days 7. Trouble concentrating on things, such as reading the newspaper or watching television: several days 8. Moving or speaking so slowly that other people could have noticed. Or the opposite - being so fidgety or restless that you have been moving around a lot more than usual: several days 9. Thoughts that you would be better off or of hurting yourself in some way: not at all Total score: 8 Depression Screening Interpretation: Positive Depression Screening Follow-up: Existing condition and In treatment Depression Screening Done: Yes 53503 - PHQ-9 Billing: Yes Source: Developed by Drs. Peter Alvarado, Dilma Victoria, Jerrell Padilla and colleagues, with an educational stephanie from [employer]. Thrive Questionnaire Date Thrive assessed: 03/05/25 I am a: Patient What is your living situation today?: I have a steady place to live Within the past 12 months, did the food you bought not last and you didn't have the money to get more?: Sometimes True Within the past 12 months, did you worry whether your food would run out before you got money to buy more?: Sometimes True Do you have trouble paying for medicines?: No Do you have trouble getting transportation to medical appointments?: No Do you have trouble paying your heating and electricity bill?: No Do you have trouble taking care of your child, family member or friend?: No Do you have trouble with day-to-day activities such as bathing, preparing meals, shopping, managing finances, etc.?: I choose not to answer this question Are you currently unemployed and looking for a job?: No Are you interested in more education?: No Please select the resources that you would like help with: None Currently or been in a relationship where the following occur: No concerns reported THRIVE Score: 2 AUDIT C Alcohol Use Questionnaire (AUDIT-C) 1. How often do you have a drink containing alcohol?: Monthly or less 2. How many drinks containing alcohol do you have on a typical day when you are drinking?: 1 or 2 3. How often do you have six or more drinks on one occasion?: Never Total Score: 1 Score Reviewed/Action Taken: Yes JAVY-7 AMB Questionnaire JAVY-7 Date JAVY - 7 assessed: 03/05/25 Feeling nervous, anxious, or on edge: 3 = Nearly every day Not being able to stop or control worryin = More than half the days Worrying too much about different things: 3 = Nearly every day Trouble relaxin = Several days Being so restless that it is hard to sit still: 1 = Several days Becoming easily annoyed or irritable: 2 = More than half the days Feeling afraid as if something awful might happen: 2 = More than half the days Total JAVY-7 score (0-4 normal; 5-9 mild; 10-14 moderate; 15-21 severe): 14 Source: Developed by Drs. Peter Alvarado, Dilma Victoria, Jerrell Padilla and colleagues, with an educational stephanie from [employer]. JAVY-7 Assessment Billing JAVY-7 Assessment Tool: JAVY-7 Assessment 30803 Physical exam (Primary Care) Vital Signs: Last Vital Signs Temp 98.9 F 03/05/25 12:42 Pulse 81 03/05/25 12:42 BP 144/82 H 03/05/25 12:42 Pulse Ox 96 03/05/25 12:42 Oxygen Delivery Method Room Air 03/05/25 12:42 BMI result Body Mass Index 29.1 Tobacco/Smoking Status: Tobacco use Status Tobacco use date assessed 03/05/25 03/05/25 12:47 Patient Tobacco Use Status Current someday Tobacco 03/05/25 12:47 Tobacco use type Cigarette 03/05/25 12:47 e-Cigarette/Vaping Use Never Used 03/05/25 12:47 PHQ-9: PHQ-9 Score PHQ-9: Total score 8 03/05/25 12:47 Depression Screening Interpretation: Positive Depression Screening Follow-up: Existing condition and In treatment Thrive Assessment: Date of Thrive Assessment Date Thrive assessed 03/05/25 03/05/25 12:47 Currently or been in a relationship where the following occur: No concerns reported Coding Level of Care Code Est Pt Level 4 (93896) Complex EM visit Add On G2211 Diagnoses Essential hypertension I10 Panic anxiety syndrome F41.0 Bipolar affective disorder, currently depressed, moderate F31.32 Current episode severity: moderate Impaired fasting blood sugar R73.01 Vitamin D deficiency E55.9 Lipid disorder E78.9 PTSD (post-traumatic stress disorder) F43.10 Fatty liver K76.0 Atherosclerosis of abdominal aorta I70.0 Additional Codes JAVY-7 Assessment Billing - JAVY-7 Assessment Tool: JAVY-7 Assessment 09895 ([id number]) PHQ-9 - 43151 - PHQ-9 Billing: Yes ([id number]) Assessment & Plan Assessment & Plan (1) Essential hypertension: Code(s): I10 - Essential (primary) hypertension Category: Medical (2) Panic anxiety syndrome: Code(s): F41.0 - Panic disorder [episodic paroxysmal anxiety] Category: Medical (3) Bipolar disorder current episode depressed: Code(s): F31.30 - Bipolar disorder, current episode depressed, mild or moderate severity, unspecified Category: Medical Qualifiers: Current episode severity: moderate Qualified Code(s): F31.32 - Bipolar disorder, current episode depressed, moderate (4) Impaired fasting blood sugar: Code(s): R73.01 - Impaired fasting glucose Category: Medical (5) Vitamin D deficiency: Code(s): E55.9 - Vitamin D deficiency, unspecified Category: Medical (6) Lipid disorder: Code(s): E78.9 - Disorder of lipoprotein metabolism, unspecified Category: Medical (7) PTSD (post-traumatic stress disorder): Code(s): F43.10 - Post-traumatic stress disorder, unspecified Category: Medical (8) Fatty liver: Code(s): K76.0 - Fatty (change of) liver, not elsewhere classified Category: Medical (9) Atherosclerosis of abdominal aorta: Code(s): I70.0 - Atherosclerosis of aorta Category: Medical Plan History - The patient is a 55-year-old female presenting with a request for medication refill and evaluation of a right breast cyst. - The patient reported a need for a refill of Vitamin D. - patient suffers from bipolar disorder, panic anxiety syndrome, PTSD, and severe depression, she confirmed she had already obtained her psychiatric medication refills. - The patient noted a cyst on the right breast, describing it as swollen and painful, with progressively increasing size and discomfort. - She indicated experiencing similar cysts in the past, notably an ovarian cyst before her pregnancies. - The high blood pressure reading noted today was attributed by the patient to rushing to her medication warp picker. - At home blood pressure readings usually average 120. - also have history of fatty liver Medical History: - Essential Hypertension - Hyperlipidemia - Anxiety Disorder - Major Depressive Disorder - inflamed cyst right breast - fatty liver - slight anemia Medications: - Atenolol 25 mg for Essential Hypertension - Rosuvastatin 40 mg for Hyperlipidemia - Aripiprazole for Anxiety Disorder through psychiatrist - Lorazepam twice daily for Anxiety Disorder through psychiatrist - Trazodone as needed for sleep disturbances through psychiatrist Social History: - Parents are visiting from [place] - Has gained some weight due to changes in dietary habits while parents are visiting - No longer seeing a counselor due to personal conflicts Diagnostic Results: - Labs: Patient is scheduled for fasting blood tests. Problem List - Essential Hypertension - Hyperlipidemia - Right Breast Cyst - Anxiety Disorder - Major Depressive Disorder - fatty liver - overweight - slight anemia Patient Instructions - Take prescribed antibiotics for the right breast cyst to reduce inflammation. - Schedule and complete fasting blood tests before consuming breakfast. - Continue current medications as prescribed. - Follow up with scheduled physical exam in June. - Monitor blood pressure regularly at home and maintain a record of readings. Orders: Orders Vitamin D 25-OH (D2 and D3) Today E55.9 - Vitamin D deficiency, unspecified, E78.9 - Disorder of lipoprotein metabolism, unspecified, F31.32 - Bipolar disorder, current episode depressed, moderate, F41.0 - Panic disorder [episodic paroxysmal anxiety], F43.10 - Post-traumatic stress disorder, unspecified, I10 - Essential (primary) hypertension, I70.0 - Atherosclerosis of aorta, K76.0 - Fatty (change of) liver, not elsewhere classified, R73.01 - Impaired fasting glucose TSH reflex Free T4 Today E55.9 - Vitamin D deficiency, unspecified, E78.9 - Disorder of lipoprotein metabolism, unspecified, F31.32 - Bipolar disorder, current episode depressed, moderate, F41.0 - Panic disorder [episodic paroxysmal anxiety], F43.10 - Post-traumatic stress disorder, unspecified, I10 - Essential (primary) hypertension, I70.0 - Atherosclerosis of aorta, K76.0 - Fatty (change of) liver, not elsewhere classified, R73.01 - Impaired fasting glucose Complete Blood Count Auto Diff Today E55.9 - Vitamin D deficiency, unspecified, E78.9 - Disorder of lipoprotein metabolism, unspecified, F31.32 - Bipolar disorder, current episode depressed, moderate, F41.0 - Panic disorder [episodic paroxysmal anxiety], F43.10 - Post-traumatic stress disorder, unspecified, I10 - Essential (primary) hypertension, I70.0 - Atherosclerosis of aorta, K76.0 - Fatty (change of) liver, not elsewhere classified, R73.01 - Impaired fasting glucose Comprehensive [place]. Panel Fast Today E55.9 - Vitamin D deficiency, unspecified, E78.9 - Disorder of lipoprotein metabolism, unspecified, F31.32 - Bipolar disorder, current episode depressed, moderate, F41.0 - Panic disorder [episodic paroxysmal anxiety], F43.10 - Post-traumatic stress disorder, unspecified, I10 - Essential (primary) hypertension, I70.0 - Atherosclerosis of aorta, K76.0 - Fatty (change of) liver, not elsewhere classified, R73.01 - Impaired fasting glucose Lipid Panel Today E55.9 - Vitamin D deficiency, unspecified, E78.9 - Disorder of lipoprotein metabolism, unspecified, F31.32 - Bipolar disorder, current episode depressed, moderate, F41.0 - Panic disorder [episodic paroxysmal anxiety], F43.10 - Post-traumatic stress disorder, unspecified, I10 - Essential (primary) hypertension, I70.0 - Atherosclerosis of aorta, K76.0 - Fatty (change of) liver, not elsewhere classified, R73.01 - Impaired fasting glucose Hemoglobin A1c Today R73.01 - Impaired fasting glucose Medications: New amoxicillin-pot clavulanate 500-125 mg (Augmentin) 1 tab PO BID 5 days 10 tabs 0RF Breast infection Refilled cholecalciferol (vitamin D3) 25 mcg PO DAILY 90 days 90 caps 3RF
== END 2025-03-05 13:20 | disposition home or self-care (01) ==
LOC: HO.HMCC 12:40
PROVIDERS: PCP Internal Medicine; Visit Provider Internal Medicine
DX: I10 Essential (primary) hypertension (principal); F41.0 Panic disorder [episodic paroxysmal anxiety]; F31.32 Bipolar disorder, current episode depressed, moderate; R73.01 Impaired fasting glucose; E55.9 Vitamin D deficiency, unspecified; E78.9 Disorder of lipoprotein metabolism, unspecified; F43.10 Post-traumatic stress disorder, unspecified; K76.0 Fatty (change of) liver, not elsewhere classified; I70.0 Atherosclerosis of aorta

== ENCOUNTER → 2025-03-05 12:39 | Outpatient (BNVA) | payer OTHER, SELFPAY | PROVIDERS: PCP Internal Medicine; Visit Provider Internal Medicine | DX: I10 Essential (primary) hypertension (principal); F41.0 Panic disorder [episodic paroxysmal anxiety]; F31.32 Bipolar disorder, current episode depressed, moderate; F41.9 Anxiety disorder, unspecified; F90.9 Attention-deficit hyperactivity disorder, unspecified type; R73.01 Impaired fasting glucose; E55.9 Vitamin D deficiency, unspecified; E78.9 Disorder of lipoprotein metabolism, unspecified; F43.10 Post-traumatic stress disorder, unspecified; K76.0 Fatty (change of) liver, not elsewhere classified; I70.0 Atherosclerosis of aorta | CPT/HCPCS: 96127; 99212 ==

== ENCOUNTER 2025-05-28 09:35 | Outpatient (REF) | payer OTHER, SELFPAY ==
[2025-05-28 13:26] LABS: MANUAL DIFF FLAG NO
[2025-05-28 13:37] LABS: Hematocrit 48.3 % (37.0-47.0); Hemoglobin 15.8 g/dl (12.0-16.0); Imm Gran Abs Auto 0.02 X10*3/uL (0.00-0.03); Imm Gran Pct Auto 0.2 % (0.0-0.4); Lymphocytes Absolute Auto 2.4 X10*3/uL (1.2-4.9); Mean Corpuscular HGB Conc 32.7 g/dl (31.0-35.0); Mean Corpuscular Hemoglobin 31.0 pg (27.0-33.0); Mean Corpuscular Volume 94.9 fL (80.0-98.0); NRBC Abs Auto 0.000 X10*3/uL (0.0-0.012); NRBC Pct Auto 0.0 /100WBC (0.0-0.2); Platelet Count 210 X10*3/uL (160-400); Red Blood Count 5.09 X10*6/uL (4.20-5.50); White Blood Count 8.9 X10*3/uL (4.8-10.8)
[2025-05-28 13:55] LABS: Hemoglobin A1C 167.8156 umol/L; Total Hemoglobin (HGBA1C) 3984.3129 umol/L
[2025-05-28 14:15] LABS: Alanine Aminotransferase 19 U/L (0-31); Albumin Level 4.7 g/dL (3.5-5.0); Alkaline Phosphatase 59 U/L (39-117); Anion Gap 13 (12-20); Aspartate Amino Transferase 26 U/L (5-31); Blood Urea Nitrogen 12 mg/dL (9-16); Calcium 9.2 mg/dL (8.4-10.2); Carbon Dioxide 23 mmol/L (22-29); Chloride 109 mmol/L (96-108); Cholesterol 152 mg/dL (<200); Estimated Glomerular Filt Rate > 60; HDL Cholesterol 50 mg/dL (>40); Potassium 4.0 mmol/L (3.3-5.1); Sodium 141 mmol/L (135-145); Total Protein 6.9 g/dL (6.5-8.0); Triglycerides 112 mg/dL (<150)
[2025-06-01 18:23] LABS: Vitamin D 25-OH, D2 <4 ng/mL; Vitamin D 25-OH, D3 24 ng/mL; Vitamin D 25-OH, Total 24 ng/mL (30-100)
== END 2025-05-28 09:36 | disposition home or self-care (01) ==
LOC: HO.HMGCLDS 09:35
PROVIDERS: PCP Internal Medicine; Visit Provider Internal Medicine
DX: I10 Essential (primary) hypertension (principal); I70.0 Atherosclerosis of aorta; E55.9 Vitamin D deficiency, unspecified; E78.9 Disorder of lipoprotein metabolism, unspecified; K76.0 Fatty (change of) liver, not elsewhere classified; F31.32 Bipolar disorder, current episode depressed, moderate; F41.0 Panic disorder [episodic paroxysmal anxiety]; F43.10 Post-traumatic stress disorder, unspecified; R73.01 Impaired fasting glucose
CPT/HCPCS: 36415; 80053; 80061; 82306; 83036; 84443; 85025

== ENCOUNTER 2025-06-05 14:22 | Outpatient (AMB) | payer OTHER, SELFPAY ==
--- NOTE | 2025-06-05 14:29 | MHC.PC.OV ---
Vital Signs 06/05/25 14:30 Height 5 ft 7 in Weight 183 lb BMI 28.7 BP 132/84 Blood Pressure Location Lt brachial Position Sitting Pulse 86 Pulse Source Pulse Oximeter Pulse Oximetry (%) 98 Intake Visit Reasons: Annual Allergies acetaminophen (From VICODIN) Allergy (Unknown, Verified 06/05/25 14:31) ITCHING hydrocodone (From VICODIN) Allergy (Unknown, Verified 06/05/25 14:31) ITCHING oxycodone (From PERCOCET) Allergy (Unknown, Verified 06/05/25 14:31) ITCHING ibuprofen Adverse Reaction (Verified 06/05/25 14:31) Vomiting lamotrigine Adverse Reaction (Verified 06/05/25 14:31) Rash Medication List - Last Reconciled 06/05/25 by Fernanda Huerta MD aripiprazole 2 mg PO BEDTIME aspirin (Ecotrin Low Strength) 81 mg PO DAILY atenolol 25 mg PO DAILY cholecalciferol (vitamin D3) 25 mcg PO DAILY 90 days lorazepam 1 mg PO BID PRN 30 days polyethylene glycol 3350 (Miralax) 17 grams PO DAILY 90 days rosuvastatin 40 mg PO DAILY trazodone 50 mg PO BEDTIME PRN Tobacco use date assessed: 03/05/25 Dental Screening Dental Screen Date: 03/05/25 HPI Annual HPI Details History of Present Illness The patient is a 55 year old female presenting for physical examination and also complaining about menopausal symptoms. Menopausal Symptoms: - The patient reports experiencing severe hot flashes. - Symptoms include waking up soaking wet at night and periods during the day with similar symptoms. - The patient has not tried venlafaxine (Effexor) but is considering starting it after discussing it with me. Hypertension: - The patient's blood pressure at the visit is 132/84 mmHg. - The patient monitors her blood pressure at home, typically in the 130s. Prediabetes: - Hemoglobin A1c was reported as 6%. - The patient has been making dietary changes and has managed to lose some weight, although she recently gained a few pounds. Hyperlipidemia: - Cholesterol levels are stable and she continues taking rosuvastatin. 40 mg Depression/auditory hallucinations - The patient previously took fluoxetine I am switching hit with Effexor continue with Abilify Anxiety: - Previously managed with lorazepam, which the patient reports is no longer available. Insomnia: - The patient has trazodone but uses it only as needed. Does not need refill Tobacco Use Disorder: - The patient currently smokes, with one pack of cigarettes lasting her three days. - She is reducing her smoking gradually. 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 - Colonoscopy is due; no recent procedure reported. - Regular monitoring of blood pressure. - Informed about importance of weight management to address prediabetes. - Continued vitamin D supplementation recommended. - no more Pap smear secondary to complete hysterectomy for benign cause heavy bleeding [place] of Care: Was seeing psychiatrist and therapist before and then she stopped going Medications - Abilify - Aspirin - Atenolol - Vitamin D - Rosuvastatin - Trazodone (as needed) Diagnostic results Labs: - CBC: Normal - Electrolytes: Normal - Kidney function: Normal - Hemoglobin A1c: 6.0% (Prediabetes) - Liver enzymes: Normal - Thyroid function: Normal Patient Instructions - Continue with blood pressure and cholesterol medications. - Begin venlafaxine for menopausal symptoms as discussed. We will set up telemedicine in 4 weeks to follow-up on that - Refill all current medication prescriptions. - Schedule and complete overdue mammogram and colonoscopy. - Monitor and maintain weight for prediabetes management. - Gradually reduce smoking; seek help if necessary. Regular follow up in 3 months, physical exam 1 year Review of Systems - General: No fever no chills - Neurological: No headaches no dizziness - Ear nose throat: No sore throat no hearing difficulty no ear pain - Cardiovascular: No syncope, no chest pain, no palpitations - Gastrointestinal: No nausea vomiting or diarrhea - Endocrine: No polyuria polydipsia no heat intolerance - Genitourinary: No dysuria - Skin: No new complaints Physical Exam General: Cooperative, healthy appearing, comfortable, no acute distress Orientation: Patient oriented x3 Head: Normal to inspection Ears: Within normal limit visually Nose: Normal external nose present Face and sinus: Normal facial exam Eyes: Appearance normal, extraocular movement intact pupils reactive Neck: Normal visual inspection and supple Respiratory: Normal respiratory effort and able to speak in complete sentences. Clear to auscultation, no stridor Cardiovascular: S1 and S2 RRR Breast exam declined GI: Normal to inspection. Soft to palpation and nontender Skin: Turgor normal, no acute findings Neuro: Patient oriented x3, motor sensory intact, balance intact, tandem pass Extremities: Normal to inspection [facility] Medical History Depression Anxiety Essential hypertension Family History Brother Substance use disorder Mental health disorder Sister Substance use disorder Mental health disorder Father Mental health disorder CAD (coronary artery disease) Mother Afib Social History Housing: House Patient Tobacco Use Status: Current someday Tobacco user Tobacco use type: Cigarette Cigarettes Per Day: 5 e-Cigarette/Vaping Use: Never Used service: No Current occupational status: disabled 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 Cognitive needs: No Hearing needs: No Vision needs: Yes Questionnaire Thrive Questionnaire Date Thrive assessed: 06/05/25 I am a: Patient What is your living situation today?: I have a steady place to live Within the past 12 months, did the food you bought not last and you didn't have the money to get more?: Sometimes True Within the past 12 months, did you worry whether your food would run out before you got money to buy more?: Sometimes True Do you have trouble paying for medicines?: No Do you have trouble getting transportation to medical appointments?: No Do you have trouble paying your heating and electricity bill?: No Do you have trouble taking care of your child, family member or friend?: No Do you have trouble with day-to-day activities such as bathing, preparing meals, shopping, managing finances, etc.?: I choose not to answer this question Are you currently unemployed and looking for a job?: No Are you interested in more education?: No Please select the resources that you would like help with: None Currently or been in a relationship where the following occur: No concerns reported THRIVE Score: 2 JAVY-7 AMB Questionnaire JAVY-7 Date JAVY - 7 assessed: 03/05/25 Source: Developed by Drs. Peter Alvarado, Dilma Victoria, Jerrell Padilla and colleagues, with an educational stephanie from [email or web address]. Physical exam (Primary Care) Vital Signs: Last Vital Signs Pulse 86 06/05/25 14:30 BP 132/84 06/05/25 14:30 Pulse Ox 98 06/05/25 14:30 BMI result Body Mass Index 28.7 Tobacco/Smoking Status: Tobacco use Status Tobacco use date assessed 03/05/25 06/05/25 14:34 Patient Tobacco Use Status Current someday Tobacco 06/05/25 14:34 Tobacco use type Cigarette 06/05/25 14:34 e-Cigarette/Vaping Use Never Used 06/05/25 14:34 Are you ready to quit: Yes Tobacco cessation counseling provided: Yes Relapse Prevention: discussed the importance of a supportive environment and discussed dietary, exercise and/or lifestyle changes CPT code: 03458 - 4-10 Minutes Thrive Assessment: Date of Thrive Assessment Date Thrive assessed 06/05/25 06/05/25 14:34 Currently or been in a relationship where the following occur: No concerns reported Coding Level of Care Code Est Pt Level 4 (35569) Est Pt Prev Care 40-64y(59113) Diagnoses Encounter for general adult medical examination with abnormal findings Z00.01 Auditory hallucinations R44.0 PTSD (post-traumatic stress disorder) F43.10 Bipolar affective disorder, currently depressed, moderate F31.32 Current episode severity: moderate Severe major depression F32.2 Panic anxiety syndrome F41.0 Essential hypertension I10 Lipid disorder E78.9 Impaired fasting blood sugar R73.01 Other insomnia G47.09 Insomnia type: other insomnia Additional Codes Vital Signs *Quality* - CPT code: 62847 - 4-10 Minutes ([id number]) Assessment & Plan Assessment & Plan (1) Encounter for general adult medical examination with abnormal findings: Code(s): Z00.01 - Encounter for general adult medical examination with abnormal findings Category: Medical (2) Auditory hallucinations: Code(s): R44.0 - Auditory hallucinations Category: Medical (3) PTSD (post-traumatic stress disorder): Code(s): F43.10 - Post-traumatic stress disorder, unspecified Category: Medical (4) Bipolar disorder current episode depressed: Code(s): F31.30 - Bipolar disorder, current episode depressed, mild or moderate severity, unspecified Category: Medical Qualifiers: Current episode severity: moderate Qualified Code(s): F31.32 - Bipolar disorder, current episode depressed, moderate (5) Severe major depression: Code(s): F32.2 - Major depressive disorder, single episode, severe without psychotic features Category: Medical (6) Panic anxiety syndrome: Code(s): F41.0 - Panic disorder [episodic paroxysmal anxiety] Category: Medical (7) Essential hypertension: Code(s): I10 - Essential (primary) hypertension Category: Medical (8) Lipid disorder: Code(s): E78.9 - Disorder of lipoprotein metabolism, unspecified Category: Medical (9) Impaired fasting blood sugar: Code(s): R73.01 - Impaired fasting glucose Category: Medical (10) Insomnia: Code(s): G47.00 - Insomnia, unspecified Category: Medical Qualifiers: Insomnia type: other insomnia Qualified Code(s): G47.09 - Other insomnia Plan History of Present Illness The patient is a 55 year old female presenting for physical examination and also complaining about menopausal symptoms. Menopausal Symptoms: - The patient reports experiencing severe hot flashes. - Symptoms include waking up soaking wet at night and periods during the day with similar symptoms. - The patient has not tried venlafaxine (Effexor) but is considering starting it after discussing it with me. Hypertension: - The patient's blood pressure at the visit is 132/84 mmHg. - The patient monitors her blood pressure at home, typically in the 130s. Prediabetes: - Hemoglobin A1c was reported as 6%. - The patient has been making dietary changes and has managed to lose some weight, although she recently gained a few pounds. Hyperlipidemia: - Cholesterol levels are stable and she continues taking rosuvastatin. 40 mg Depression/auditory hallucinations - The patient previously took fluoxetine I am switching hit with Effexor continue with Abilify Anxiety: - Previously managed with lorazepam, which the patient reports is no longer available. Insomnia: - The patient has trazodone but uses it only as needed. Does not need refill Tobacco Use Disorder: - The patient currently smokes, with one pack of cigarettes lasting her three days. - She is reducing her smoking gradually. 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 - Colonoscopy is due; no recent procedure reported. - Regular monitoring of blood pressure. - Informed about importance of weight management to address prediabetes. - Continued vitamin D supplementation recommended. - no more Pap smear secondary to complete hysterectomy for benign cause heavy bleeding [place] of Care: Was seeing psychiatrist and therapist before and then she stopped going Medications - Abilify - Aspirin - Atenolol - Vitamin D - Rosuvastatin - Trazodone (as needed) Diagnostic results Labs: - CBC: Normal - Electrolytes: Normal - Kidney function: Normal - Hemoglobin A1c: 6.0% (Prediabetes) - Liver enzymes: Normal - Thyroid function: Normal Patient Instructions - Continue with blood pressure and cholesterol medications. - Begin venlafaxine for menopausal symptoms as discussed. We will set up telemedicine in 4 weeks to follow-up on that - Refill all current medication prescriptions. - Schedule and complete overdue mammogram and colonoscopy. - Monitor and maintain weight for prediabetes management. - Gradually reduce smoking; seek help if necessary. Regular follow up in 3 months, physical exam 1 year Orders: Orders MM tomosynthesis screening BI Today Z12.31 - Encounter for screening mammogram for malignant neoplasm of breast Referrals Open Access Screening Colonoscopy Referral Z12.11 - Encounter for screening for malignant neoplasm of colon Medications: New venlafaxine ER 37.5 mg PO BEDTIME 90 tabs 0RF Discontinued lorazepam Discontinued Reason: Doctor's Order 1 mg PO BID 30 days PRN 60 tabs 2RF anxiety
[2025-06-05 14:30] VITALS: BP 132/84; PULSE 86; O2SAT 98; BMI 28.7
== END 2025-06-05 15:00 | disposition home or self-care (01) ==
LOC: HO.HMCC 14:23
PROVIDERS: PCP Internal Medicine; Visit Provider Internal Medicine
DX: Z00.01 Encounter for general adult medical examination with abnormal findings (principal); R44.0 Auditory hallucinations; F31.32 Bipolar disorder, current episode depressed, moderate; F43.10 Post-traumatic stress disorder, unspecified; F41.0 Panic disorder [episodic paroxysmal anxiety]; I10 Essential (primary) hypertension; E78.9 Disorder of lipoprotein metabolism, unspecified; R73.01 Impaired fasting glucose; G47.09 Other insomnia

== ENCOUNTER → 2025-06-05 14:22 | Outpatient (BNVA) | payer OTHER, SELFPAY | PROVIDERS: PCP Internal Medicine; Visit Provider Internal Medicine | DX: Z00.01 Encounter for general adult medical examination with abnormal findings (principal); I10 Essential (primary) hypertension; R73.03 Prediabetes; E78.5 Hyperlipidemia, unspecified; R44.0 Auditory hallucinations; F41.9 Anxiety disorder, unspecified; G47.00 Insomnia, unspecified; F43.10 Post-traumatic stress disorder, unspecified; F31.32 Bipolar disorder, current episode depressed, moderate; F41.0 Panic disorder [episodic paroxysmal anxiety]; E78.9 Disorder of lipoprotein metabolism, unspecified; R73.01 Impaired fasting glucose; G47.09 Other insomnia | CPT/HCPCS: 99212; 99396 ==

== ENCOUNTER 2025-07-11 08:18 | Outpatient (AMB) | payer OTHER, SELFPAY ==
--- NOTE | 2025-07-11 08:40 | A.OFFPC_ITS ---
Intake Visit Reasons: 1 month follow up Allergies acetaminophen (From VICODIN) Allergy (Unknown, Verified 06/05/25 14:31) ITCHING hydrocodone (From VICODIN) Allergy (Unknown, Verified 06/05/25 14:31) ITCHING oxycodone (From PERCOCET) Allergy (Unknown, Verified 06/05/25 14:31) ITCHING ibuprofen Adverse Reaction (Verified 06/05/25 14:31) Vomiting lamotrigine Adverse Reaction (Verified 06/05/25 14:31) Rash Medication List - Last Reconciled 07/11/25 by Fernanda Huerta MD aripiprazole 2 mg PO BEDTIME aspirin (Ecotrin Low Strength) 81 mg PO DAILY atenolol 25 mg PO DAILY cholecalciferol (vitamin D3) 25 mcg PO DAILY 90 days polyethylene glycol 3350 (Miralax) 17 grams PO DAILY 90 days rosuvastatin 40 mg PO DAILY trazodone 50 mg PO BEDTIME PRN venlafaxine ER 37.5 mg PO DAILY Tobacco use date assessed: 03/05/25 Dental Screening Dental Screen Date: 03/05/25 HPI 1 month follow up HPI Details History of Present Illness The patient is a 55 year old female presenting with menopausal symptoms. Menopausal symptoms: - Symptoms include night sweats and mood swings. - Menopausal symptoms have been present and are described as draining. - The patient reports some improvement i n night sweats with venlafaxin but still experiences daytime sweating. - Mood swings include episodes of crying and shaking for no apparent reason. - The patient indicates medication has h elped to some extent but not entirely managed the symptoms. Medical History: - Severe depression - Menopausal symptoms - anxiety / panic disorder Plan - Increase the dose of benlopexine to 75 mg to further manage menopausal symptoms and associated mood swings. - Continue Abilify 2 mg at bedtime for m anagement of depression. - Patient is requesting to restart loraz epam use, prescribed at a frequency of one per day PRN to alleviate shakiness and nervousness. - Call in a prescription for vitamin D s upplementation as requested by the patient. - Regular follow-up planned in [facility] two months to assess the efficacy of the treatment changes and make further adjustments if needed. Review of Systems - General: No fever no chills - Neurological: No headaches no dizziness - Ear nose throat: No sore throat no hearing difficulty no ear pain - Cardiovascular: No syncope, no chest pain, no palpitations - Gastrointestinal: No nausea vomiting or diarrhea PFSH Medical History Depression Anxiety Essential hypertension Family History Brother Substance use disorder Mental health disorder Sister Substance use disorder Mental health disorder Father Mental health disorder CAD (coronary artery disease) Mother Afib Social History Housing: House Patient Tobacco Use Status: Current someday Tobacco user Tobacco use type: Cigarette Cigarettes Per Day: 5 e-Cigarette/Vaping Use: Never Used service: No Current occupational status: disabled 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 Cognitive needs: No Hearing needs: No Vision needs: Yes Questionnaire Thrive Questionnaire Date Thrive assessed: 06/05/25 I am a: Patient What is your living situation today?: I have a steady place to live Within the past 12 months, did the food you bought not last and you didn't have the money to get more?: Sometimes True Within the past 12 months, did you worry whether your food would run out before you got money to buy more?: Sometimes True Do you have trouble paying for medicines?: No Do you have trouble getting transportation to medical appointments?: No Do you have trouble paying your heating and electricity bill?: No Do you have trouble taking care of your child, family member or friend?: No Do you have trouble with day-to-day activities such as bathing, preparing meals, shopping, managing finances, etc.?: I choose not to answer this question Are you currently unemployed and looking for a job?: No Are you interested in more education?: No Please select the resources that you would like help with: None Currently or been in a relationship where the following occur: No concerns reported THRIVE Score: 2 JAVY-7 AMB Questionnaire JAVY-7 Date JAVY - 7 assessed: 03/05/25 Source: Developed by Drs. Peter Alvarado, Dilma Victoria, Jerrell Padilla and colleagues, with an educational stephanie from [employer]. Physical exam (Primary Care) Tobacco/Smoking Status: Tobacco use Status Tobacco use date assessed 03/05/25 07/11/25 08:41 Patient Tobacco Use Status Current someday Tobacco 07/11/25 08:41 Tobacco use type Cigarette 07/11/25 08:41 e-Cigarette/Vaping Use Never Used 07/11/25 08:41 Thrive Assessment: Date of Thrive Assessment Date Thrive assessed 06/05/25 07/11/25 08:41 Currently or been in a relationship where the following occur: No concerns reported Telehealth Telehealth Telehealth Platform: [employer] Location of provider rendering services: practice address Location of patient: address on file Patient Identification confirmed using: Name, : Yes Telehealth method: video Patient verbally consented to treatment: Yes Patient verbally consented to billing insurance company: Yes Patient informed of any privacy concerns related to visit: Yes Minutes spent on Phone/Video with Pt.: 13 Coding Level of Care Code Tele Est Pt Level 3 (00764) Diagnoses Hot flashes R23.2 Bipolar affective disorder, currently depressed, moderate F31.32 Current episode severity: moderate Panic anxiety syndrome F41.0 Assessment & Plan Assessment & Plan (1) Hot flashes: Code(s): R23.2 - [place] Category: Medical (2) Bipolar disorder current episode depressed: Code(s): F31.30 - Bipolar disorder, current episode depressed, mild or moderate severity, unspecified Category: Medical Qualifiers: Current episode severity: moderate Qualified Code(s): F31.32 - Bipolar disorder, current episode depressed, moderate (3) Panic anxiety syndrome: Code(s): F41.0 - Panic disorder [episodic paroxysmal anxiety] Category: Medical Plan History of Present Illness The patient is a 55 year old female presenting with menopausal symptoms. Menopausal symptoms: - Symptoms include night sweats and mood swings. - Menopausal symptoms have been present and are described as draining. - The patient reports some improvement in night sweats with venlafaxin but still experiences daytime sweating. - Mood swings include episodes of crying and shaking for no apparent reason. - The patient indicates medication has helped to some extent but not entirely managed the symptoms. Medical History: - Severe depression - Menopausal symptoms - anxiety / panic disorder Plan - Increase the dose of benlopexine to 75 mg to further manage menopausal symptoms and associated mood swings. - Continue Abilify 2 mg at bedtime for management of depression. - Patient is requesting to restart lorazepam use, prescribed at a frequency of one per day PRN to alleviate shakiness and nervousness. - Call in a prescription for vitamin D supplementation as requested by the patient. - Regular follow-up planned in approximately two months to assess the efficacy of the treatment changes and make further adjustments if needed. Medications: Changed From venlafaxine ER 37.5 mg PO DAILY 90 caps 3RF To venlafaxine ER 75 mg PO DAILY 90 caps 0RF Refilled lorazepam 1 mg PO BID PRN 30 tabs 1RF anxiety 30 days cholecalciferol (vitamin D3) 25 mcg PO DAILY 90 caps 3RF 90 days
== END 2025-07-11 09:19 | disposition home or self-care (01) ==
LOC: HO.HMCC 08:19
PROVIDERS: PCP Internal Medicine; Visit Provider Internal Medicine
DX: R23.2 Flushing (principal); F31.32 Bipolar disorder, current episode depressed, moderate; F41.0 Panic disorder [episodic paroxysmal anxiety]

== ENCOUNTER 2025-08-19 08:32 | Outpatient (REF) | payer OTHER, SELFPAY ==
--- NOTE | ~2025-08-19 | MM_ITS ---
EXAMINATION: MM SCREENING DIGITAL BREAST TOMOSYNTHESIS, BILATERAL CLINICAL INFORMATION: Screening. Asymptomatic. History of bilateral reduction mammoplasty. COMPARISON: Comparison made to multiple prior, most recent May 02, 2024, and most remote November 18, 2015. TECHNIQUE: Digital breast tomosynthesis is performed in mediolateral oblique and craniocaudal views along with computer-aided detection (CAD). Synthesized 2D images are generated from the tomosynthesis. FINDINGS: BREAST COMPOSITION: There are scattered areas of fibroglandular density. RIGHT BREAST: Status post reduction mammoplasty with postsurgical changes not significantly changed from 2016. No significant masses, suspicious calcifications or other abnormalities are seen. LEFT BREAST: Status post reduction mammoplasty with coarse calcifications not significantly changed from 2016. No significant masses, suspicious calcifications or other abnormalities are seen. MM/MM tomosynthesis screening BI IMPRESSION: BILATERAL BREASTS: Benign, no mammographic evidence of malignancy. Normal interval follow-up is recommended in 12 months. ASSESSMENT: BI-RADS: Category 2: Benign RECOMMENDATION: Routine annual mammography screening. FOLLOW-UP: 1 year F/U This examination should not preclude the clinical evaluation of a suspicious palpable abnormality. This patient's information was entered into a reminder system with a target due date for their next mammogram. Electronically signed by: Tamiko Gaines MD 08/19/2025 08:12 PM JAMES
== END 2025-08-19 08:33 | disposition home or self-care (01) ==
LOC: HO.MAMMO 08:32
PROVIDERS: PCP Internal Medicine; Visit Provider Internal Medicine
DX: Z12.31 Encounter for screening mammogram for malignant neoplasm of breast (principal)
CPT/HCPCS: 77063; 77067

== ENCOUNTER → 2025-08-19 08:45 | Outpatient (BNV) | payer OTHER, SELFPAY | PROVIDERS: PCP Internal Medicine; Visit Provider Radiology Body Imaging | DX: Z12.31 Encounter for screening mammogram for malignant neoplasm of breast (principal) | CPT/HCPCS: 77063; 77067 ==

== ENCOUNTER 2025-08-22 08:24 | Outpatient (AMB) | payer OTHER, SELFPAY ==
--- NOTE | 2025-08-22 08:54 | A.OFFPC_ITS ---
Intake Visit Reasons: 7wk follow up hotflashes Allergies acetaminophen (From VICODIN) Allergy (Unknown, Verified 06/05/25 14:31) ITCHING hydrocodone (From VICODIN) Allergy (Unknown, Verified 06/05/25 14:31) ITCHING oxycodone (From PERCOCET) Allergy (Unknown, Verified 06/05/25 14:31) ITCHING ibuprofen Adverse Reaction (Verified 06/05/25 14:31) Vomiting lamotrigine Adverse Reaction (Verified 06/05/25 14:31) Rash Medication List - Last Reconciled 08/22/25 by Fernanda Huerta MD aripiprazole 2 mg PO BEDTIME aspirin (Ecotrin Low Strength) 81 mg PO DAILY atenolol 25 mg PO DAILY cholecalciferol (vitamin D3) 25 mcg PO DAILY 90 days lorazepam 1 mg PO BID PRN 30 days polyethylene glycol 3350 (Miralax) 17 grams PO DAILY 90 days rosuvastatin 40 mg PO DAILY trazodone 50 mg PO BEDTIME PRN venlafaxine ER 75 mg PO DAILY Tobacco use date assessed: 03/05/25 Dental Screening Dental Screen Date: 03/05/25 HPI HPI Comments History of Present Illness Details History of Present Illness The patient is a 55 year old individual presenting with follow-up for medication management of chronic conditions. Mood Disorder / Bipolar disorder: - The patient's venlafaxine was increase d to 75 mg during the last visit. - The patient reports feeling a little b adrianne since the dose increase, though the patient still has good and bad days. - The patient also takes lorazepam once a day and Abilify 2 mg. Hypertension: - This condition is managed with atenolo l 25 mg. Hyperlipidemia: - The patient takes rosuvastatin 40 mg f or a lipid disorder. Insomnia: - The patient uses trazodone 50 mg at [facility] for sleep. Constipation: - This is treated with MiraLAX. Medical History: - Mood Disorder - Hypertension - Hyperlipidemia - Insomnia - Constipation Social History: - The patient's parents are visiting [facility] and will be staying until [place]. Medication Management - The dose of venlafaxine was increased to 75 mg at the last visit, and the patient reports feeling a little better. - The patient is reported to be doing we ll with the current combination of medications. - Refills for lorazepam, venlafaxine, an d any other due medications will be sent. 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 Cognitive needs: No Hearing needs: No Vision needs: Yes Questionnaire Thrive Questionnaire Date Thrive assessed: 10/23/24 I am a: Patient What is your living situation today?: I have a steady place to live Within the past 12 months, did the food you bought not last and you didn't have the money to get more?: Sometimes True Within the past 12 months, did you worry whether your food would run out before you got money to buy more?: Sometimes True Do you have trouble paying for medicines?: No Do you have trouble getting transportation to medical appointments?: No Do you have trouble paying your heating and electricity bill?: No Do you have trouble taking care of your child, family member or friend?: No Do you have trouble with day-to-day activities such as bathing, preparing meals, shopping, managing finances, etc.?: I choose not to answer this question Are you currently unemployed and looking for a job?: No Are you interested in more education?: No Please select the resources that you would like help with: None Currently or been in a relationship where the following occur: No concerns reported THRIVE Score: 2 JAVY-7 AMB Questionnaire JAVY-7 Date JAVY - 7 assessed: 03/05/25 Source: Developed by Drs. Peter Alvarado, Dilma Victoria, Jerrell Padilla and colleagues, with an educational stephanie from [employer]. Review of Systems Narrative Review of Systems - Psychiatric: Reports feeling a little better with some good and bad days. - General: No fever no chills - Neurological: No headaches no dizziness - Ear nose throat: No sore throat no hearing difficulty no ear pain - Cardiovascular: No syncope, no chest pain, no palpitations - Gastrointestinal: No nausea vomiting or diarrhea - Endocrine: No polyuria polydipsia no heat intolerance - Genitourinary: No dysuria , no blood in urine Physical exam (Primary Care) Tobacco/Smoking Status: Tobacco use Status Tobacco use date assessed 03/05/25 08/22/25 08:57 Patient Tobacco Use Status Current someday Tobacco 08/22/25 08:57 Tobacco use type Cigarette 08/22/25 08:57 e-Cigarette/Vaping Use Never Used 08/22/25 08:57 Thrive Assessment: Date of Thrive Assessment Date Thrive assessed 10/23/24 08/22/25 08:57 Currently or been in a relationship where the following occur: No concerns reported Telehealth Telehealth Telehealth [facility] Location of provider rendering services: practice address Location of patient: address on file Patient Identification confirmed using: Name, : Yes Telehealth method: video Patient verbally consented to treatment: Yes Patient verbally consented to billing insurance company: Yes Patient informed of any privacy concerns related to visit: Yes Minutes spent on Phone/Video with Pt.: 13 Coding Level of Care Code Tele Est Pt Level 3 (41490) Diagnoses Hot flashes R23.2 Bipolar affective disorder, currently depressed, moderate F31.32 Current episode severity: moderate Panic anxiety syndrome F41.0 Essential hypertension I10 Lipid disorder E78.9 Other insomnia G47.09 Insomnia type: other insomnia Assessment & Plan Assessment & Plan (1) Hot flashes: Code(s): R23.2 - [place] Category: Medical (2) Bipolar disorder current episode depressed: Code(s): F31.30 - Bipolar disorder, current episode depressed, mild or moderate severity, unspecified Category: Medical Qualifiers: Current episode severity: moderate Qualified Code(s): F31.32 - Bipolar disorder, current episode depressed, moderate (3) Panic anxiety syndrome: Code(s): F41.0 - Panic disorder [episodic paroxysmal anxiety] Category: Medical (4) Essential hypertension: Code(s): I10 - Essential (primary) hypertension Category: Medical (5) Lipid disorder: Code(s): E78.9 - Disorder of lipoprotein metabolism, unspecified Category: Medical (6) Insomnia: Code(s): G47.00 - Insomnia, unspecified Category: Medical Qualifiers: Insomnia type: other insomnia Qualified Code(s): G47.09 - Other insomnia Plan Plan 1. 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 - Continue lorazepam, taken once a day. - Continue Abilify 2 mg. - Refills for venlafaxine and lorazepam will be sent. 2. Essential (primary) hypertension I10 - Continue atenolol 25 mg. - A refill will be sent if needed. 3. Mixed hyperlipidemia E78.2 - Continue rosuvastatin 40 mg. - A refill will be sent if needed. 4. Insomnia due to other mental disorder F51.05 - Continue trazodone 50 mg at night. - A refill will be sent if needed. 5. Slow transit constipation K59.01 - Continue MiraLAX. - A refill will be sent if needed. 6. Follow-Up - The patient will return in a couple of months for a follow-up appointment. Medications: New trazodone 50 mg PO BEDTIME PRN 90 tabs 0RF to sleep Changed From lorazepam 1 mg PO BID 30 days PRN 30 tabs 1RF anxiety F31.32 - Bipolar disorder, current episode depressed, moderate, F41.9 - Anxiety disorder, unspecified To lorazepam 1 mg PO .qd PRN 30 tabs 1RF anxiety 30 days F31.32 - Bipolar disorder, current episode depressed, moderate, F41.9 - Anxiety disorder, unspecified Refilled aripiprazole 2 mg PO BEDTIME 90 tabs 0RF venlafaxine ER 75 mg PO DAILY 90 caps 0RF
== END 2025-08-22 13:49 | disposition home or self-care (01) ==
LOC: HO.HMCC 08:25
PROVIDERS: PCP Internal Medicine; Visit Provider Internal Medicine
DX: R23.2 Flushing (principal); F31.32 Bipolar disorder, current episode depressed, moderate; F41.0 Panic disorder [episodic paroxysmal anxiety]; I10 Essential (primary) hypertension; E78.9 Disorder of lipoprotein metabolism, unspecified; G47.09 Other insomnia